=== PATIENT | male | born 1935 | race Caucasian/White ===

== ENCOUNTER 2017-05-11 21:42 | Emergency (ER) | payer OTHER, BC ==
[2017-05-11 21:59] VITALS: TEMP 37.3; O2SAT 95
[2017-05-11] MEDS ORDERED: SODIUM CHLORIDE 0.9% 1000ML 1,000 ML IV STA (22:49)
[2017-05-11 23:23] LABS: ALT/SGPT 29 U/L (12-78); BLOOD UREA NITROGEN 12 mg/dl (7-18); BUN/CREATININE RATIO 12.3 (10-20); CALCIUM 8.5 mg/dl (8.5-10.1); CARBON DIOXIDE 24 mmol/L (21-32); CHLORIDE 101 mmol/L (98-107); GLUCOSE 111 mg/dl (70-99); MAGNESIUM 2.1 mg/dl (1.8-2.4); POTASSIUM 3.5 mmol/L (3.5-5.1); SODIUM 136 mmol/L (136-145)
[2017-05-11 23:32] LABS: ALKALINE PHOSPHATASE 172 U/L (45-117); AST/SGOT 20 U/L (15-37); CKMB/CK RATIO 4.2 (0-3.0)
[2017-05-12 00:17] LABS: URINE APPEARANCE CLEAR (CLEAR); URINE BILIRUBIN NEG (NEG); URINE COLOR YELLOW; URINE NITRITE NEG (NEG); URINE PH 6.5 (4.5-7.5); UROBILINOGEN NEG (NEG)
[2017-05-12 00:20] LABS: MANUAL MICROSCOPIC REQUIRED? NO; REVIEW REQ? NO
[2017-05-12 01:16] LABS: BASO % 0.1 %; BASO ABS # 0.01 K/uL (0-0.2); COMPLETE YES; EOS % 0.2 %; HEMATOCRIT 32.4 % (42-52); IG% 0.7 %; LYMPH % 17.9 %; MEAN CELL VOLUME 87.3 fL (80-100); MEAN CORPUSCULAR HEMOGLOBIN 30.5 pg (25-34); MEAN CORPUSCULAR HGB CONC 34.9 g/dl (32-36); MEAN PLATELET VOLUME 9.9 fL (7.4-10.4); MONO % 7.5 %; NEUT % 73.6 %; PLATELET COUNT 210 K/uL (130-400); RED BLOOD COUNT 3.71 M/uL (4.7-6.1); WHITE BLOOD COUNT 8.96 K/uL (4.8-10.8)
[2017-05-12] MEDS ORDERED: LAMO100T16 PO (01:33)
[2017-05-12] MEDS ORDERED: LEVO25TA5 PO (01:33)
[2017-05-12] MEDS ORDERED: ASPCH81X PO (01:33)
[2017-05-12] MEDS ORDERED: DOCU100C31 PO (01:34)
[2017-05-12] MEDS ORDERED: SIMV10TA2 PO (01:34)
[2017-05-12] MEDS ORDERED: SERT25TA PO (01:36)
[2017-05-12] MEDS ORDERED: HEPA1INJ22 SQ (01:36)
[2017-05-12] MEDS ORDERED: SENN8.6T36 PO (01:36)
[2017-05-12] MEDS ORDERED: PHEN-310 PO (01:37)
[2017-05-12] MEDS ORDERED: ACET-1256 PO (01:39)
[2017-05-12] MEDS ORDERED: BISA10SU5 PR (01:39)
[2017-05-12] MEDS ORDERED: SODI1ENE21 PR (01:42)
[2017-05-12] MEDS ORDERED: MOML PO (01:42)
[2017-05-12] MEDS ORDERED: POLY335019 PO (01:42)
[2017-05-12] MEDS ORDERED: PHENYTOIN SODIUM ER 100 MG CAP PO STA (01:50)
--- NOTE | 2017-05-12 03:27 | EMERGENCY ROOM VISIT NOTE ---
History Report prepared by Gustavo: Dangelo Huston Under the Supervision of: Dr. John Sanchez M.D. First contact with patient: 22:09 Chief Complaint: SEIZURE Stated Complaint: SEIZURE / [facility] Nursing Triage Summary: Pt arrives by ALS from [facility] post seizure. Staff report period of unresponsiveness, jerking of upper body at 2054 lasting about 2 minutes. deny injury. pt has hx of seizure disorder. Is at [facility] for gait dysfunction and multiple falls. Pt has multiple skin tears to arms, protective sleeves in place. healing bruises also noted to right eye History of Present Illness The patient is a 81 year old male who presents to the Emergency Room with complaints of a sudden seizure that occurred at 2054. Per nursing, the patient is a resident at [facility] for his history of gait dysfunction and multiple falls. Nursing reports that the patient was unresponsive and jerking his upper body for two minutes. She states that following the seizure, the patient experienced five minutes of post ictal. The patient states that he currently does not feel well. The patient has a history of dementia and a seizure disorder. Per patient's report from 05/08 at [facility], he is followed by neurology and was being tapered off Dilantin to be put on 200 mg of Lamictal before his hospital visit. He states this PCP is Dr. Valenzuela of [place]. The patient denies any abdominal pain, headaches, chest pain, lower extremity pain, urinary symptoms, bowel problems, neck pain, and back pain. The HPI is somewhat limited due to the patient's altered mental status. Source of History: patient, nursing staff Onset: 2054 Position: other (global) Quality: other (unresponsive jerking body) Timing: other (sudden) Review of Systems As above but the ROS is limited due to the patient's dementia. Past Medical & Surgical Medical Problems: (1) Dementia (2) Seizure disorder Family History Patient reports no known family medical history. Social History Smoking Status: Unknown if Ever Smoked Housing Status: other ([facility]) Occupation Status: retired Current/Historical Medications Scheduled Aspirin (Aspirin Chewable), 81 MG PO DAILY Heparin Sodium (Porcine) (Heparin Sodium), 5,000 UNIT SQ Q12 Lamotrigine (Lamictal), 200 MG PO DAILY Levothyroxine Sodium (Levothyroxine Sodium), 25 MCG PO QAM Phenytoin Sodium Extended (Dilantin), 30 MG PO TID Sennosides-Docusate Sodium (Docusate Sodium/Senna), 1 TAB PO WITH LUNCH Sertraline (Zoloft), 25 MG PO DAILY Simvastatin (Zocor), 10 MG PO QPM Scheduled PRN Acetaminophen (Tylenol), 500 MG PO Q4 PRN for Pain Bisacodyl (Bisacodyl), 10 MG MD DAILY PRN for Constipation Docusate Sodium (Docusate Sodium), 100 MG PO BID PRN for Constipation Magnesium Hydroxide (Milk Of Magnesia), 30 ML PO DAILY PRN for Constipation Polyethylene Glycol 3350 (Miralax), 17 GM PO DAILY PRN for Constipation Sodium Phosphates (Enema), 1 DOSE MD DAILY PRN for Constipation Allergies Coded Allergies: Ciprofloxacin (Verified Allergy, Unknown, UNKNOWN, 05/12/17) Physical Exam Vital Signs Date Time Temp Pulse Resp B/P (MAP) Pulse Ox O2 Delivery O2 Flow Rate FiO2 05/12/17 02:34 87 20 126/73 94 Room Air 05/12/17 00:05 93 18 163/100 96 Room Air 05/11/17 23:26 97 20 98 Room Air 05/11/17 22:53 98 20 153/90 97 Room Air 05/11/17 21:59 37.3 105 22 152/97 94 Room Air 05/11/17 21:59 95 Room Air 05/11/17 21:56 108 Physical Exam GENERAL: Awake, alert, well-appearing, in no distress HENT: Normocephalic, atraumatic. Oropharynx unremarkable. EYES: Normal conjunctiva. Sclera non-icteric. NECK: Supple. No nuchal rigidity. FROM. No JVD. RESPIRATORY: Clear to auscultation. CARDIAC: Borderline tachycardic, normal rhythm. Extremities warm and well perfused. Pulses equal. ABDOMEN: Soft, non-distended. No tenderness to palpation. No rebound or guarding. No masses. RECTAL: Deferred. MUSCULOSKELETAL: Chest examination reveals no tenderness. The back is symmetrical on inspection without obvious abnormality. There is no CVA tenderness to palpation. No joint edema. LOWER EXTREMITIES: Calves are equal size bilaterally and non-tender. No edema. No discoloration. NEURO: Mildly confused and disoriented. No sensory or motor deficits noted. SKIN: No rash or jaundice noted. Medical Decision & Procedures ER Provider Diagnostic Interpretation: Radiology results as stated below per my review and radiologist interpretation: CT HEAD: No ICH, mass effect or edema. No evidence of acute cortical stroke. Periventricular small vessel ischemic change. Visualized sinuses and mastoid air cells are clear. Radiologist: Davis Fletcher M.D. Chest x-ray. Findings: A chest x-ray was performed and revealed no pneumothorax, effusion, infiltrate, pulmonary edema, free air under the diaphragm, or wide mediastinum. Laboratory Results 05/12/17 01:08 Red Blood Count 3.71, Mean Corpuscular Volume 87.3, Mean Corpuscular Hemoglobin 30.5, Mean Corpuscular Hemoglobin Concent 34.9, Mean Platelet Volume 9.9, Neutrophils (%) (Auto) 73.6, Lymphocytes (%) (Auto) 17.9, Monocytes (%) (Auto) 7.5, Eosinophils (%) (Auto) 0.2, Basophils (%) (Auto) 0.1, Neutrophils # (Auto) 6.60, Lymphocytes # (Auto) 1.60, Monocytes # (Auto) 0.67, Eosinophils # (Auto) 0.02, Basophils # (Auto) 0.01 05/11/17 21:55 Test 05/11/17 21:55 05/11/17 23:00 05/12/17 01:08 Anion Gap 11.0 mmol/L (3-11) Estimated GFR () 82.0 Estimated GFR (Non- 70.8 BUN/Creatinine Ratio 12.3 (10-20) Calcium Level 8.5 mg/dl (8.5-10.1) Magnesium Level 2.1 mg/dl (1.8-2.4) Total Bilirubin 0.2 mg/dl (0.2-1) Direct Bilirubin < 0.1 mg/dl (0-0.2) Aspartate Amino Transf (AST/SGOT) 20 U/L (15-37) Alanine Aminotransferase (ALT/SGPT) 29 U/L (12-78) Alkaline Phosphatase 172 U/L (45-117) Total Creatine Kinase 98 U/L (39-308) Creatine Kinase MB 4.1 ng/ml (0.5-3.6) Creatine Kinase MB Ratio 4.2 (0-3.0) Troponin I < 0.015 ng/ml (0-0.045) Total Protein 6.7 gm/dl (6.4-8.2) Albumin 3.4 gm/dl (3.4-5.0) Lipase 404 U/L (73-393) Thyroid Stimulating Hormone (TSH) 4.880 uIu/ml (0.300-4.500) Phenytoin (Dilantin) Level 4.0 mcg/mL (10-20) Urine Color YELLOW Urine Appearance CLEAR (CLEAR) Urine pH 6.5 (4.5-7.5) Urine Specific Filley 1.010 (1.000-1.030) Urine Protein NEG (NEG) Urine Glucose (UA) NEG (NEG) Urine Ketones NEG (NEG) Urine Occult Blood NEG (NEG) Urine Nitrite NEG (NEG) Urine Bilirubin NEG (NEG) Urine Urobilinogen NEG (NEG) Urine Leukocyte Esterase NEG (NEG) White Blood Count 8.96 K/uL (4.8-10.8) Red Blood Count 3.71 M/uL (4.7-6.1) Hemoglobin 11.3 g/dL (14.0-18.0) Hematocrit 32.4 % (42-52) Mean Corpuscular Volume 87.3 fL (80-100) Mean Corpuscular Hemoglobin 30.5 pg (25-34) Mean Corpuscular Hemoglobin Concent 34.9 g/dl (32-36) Platelet Count 210 K/uL (130-400) Mean Platelet Volume 9.9 fL (7.4-10.4) Neutrophils (%) (Auto) 73.6 % Lymphocytes (%) (Auto) 17.9 % Monocytes (%) (Auto) 7.5 % Eosinophils (%) (Auto) 0.2 % Basophils (%) (Auto) 0.1 % Neutrophils # (Auto) 6.60 K/uL (1.4-6.5) Lymphocytes # (Auto) 1.60 K/uL (1.2-3.4) Monocytes # (Auto) 0.67 K/uL (0.11-0.59) Eosinophils # (Auto) 0.02 K/uL (0-0.5) Basophils # (Auto) 0.01 K/uL (0-0.2) RDW Standard Deviation 41.4 fL (36.4-46.3) RDW Coefficient of Variation 12.8 % (11.5-14.5) Immature Granulocyte % (Auto) 0.7 % Immature Granulocyte # (Auto) 0.06 K/uL (0.00-0.02) Laboratory results reviewed by me Medications Administered Medications (Trade) Dose Ordered Sig/Renzo Route Start Time Stop Time Status Last Admin Dose Admin Sodium Chloride 1,000 ml @ 125 mls/hr Q8H STAT IV 05/11/17 22:49 05/12/17 02:48 DC 05/11/17 22:49 125 MLS/HR Phenytoin Sodium (Dilantin Er Cap) 200 mg NOW STAT PO 05/12/17 01:50 05/12/17 01:51 DC 05/12/17 02:01 200 MG ECG Indication: altered mental status, other (seizure) Rate (beats per minute): 105 Rhythm: sinus tachycardia Findings: nonspecific-ST abn, PAC ED Course 2218: The patient was evaluated in room B12B. A complete history and physical exam was performed. 2249: Ordered Sodium Chloride 1000 ml @ 125 mls/hr IV. 2335: I reevaluated the patient and discussed the case with his family. His son confirmed the history that the patient was in [facility] for seizure episodes then went to [facility]. He confirms they were tapering Dilantin down and Lamictal up because they were concerned Dilantin was causing weakness and difficulty with his function. His son reports that the patient seems more confused than usual, but has experienced similar symptoms in the past after episodes. 0117: I reevaluated the patient and he is stable. I updated the family on his results. 0132: I discussed the patient's case with Dr. Barb Valencia, [facility] Neurology. She suggests restarting him on his previous Dilantin dosing and keep the Lamictal at his current level. She advises to have him follow up with his neurologist for a checkup and reevaluation of his medication change. 0150: Ordered Phenytoin Sodium 200 mg PO. 0147: I reevaluated the patient. Discussed results and discharge instructions: He and his family verbalized understanding and agreement. The patient is ready for discharge. Medical Decision Triage Nursing notes reviewed. The patient's presentation and history were concerning for a seizure-like episode. Etiologies such as seizure , vasovagal event, infection, hypoglycemia, electrolyte abnormalities, cardiac sources, intracerebral event, toxicologic, neurologic, as well as others were entertained. The patient was evaluated. He had an episode of shaking and then a. Of STATUS AFTERWARDS WHICH SEEMS TO BE MOST CONSISTENT WITH A SEIZURE AND POST ICTAL PERIOD. THE PATIENT WAS EVALUATED. BLOOD WORK WAS OBTAINED. HIS CBC AND CHEMISTRY PANEL WERE UNREMARKABLE. DILANTIN LEVEL WAS LOW AT 4. HIS CT AND CHEST X-RAY DID NOT REVEAL ANY ACUTE FINDINGS. THE PATIENT WAS REASSESSED AND WAS DOING WELL. His son notes these episodes started only after the dilantin taper and he was well controlled for years with 100mg QAM 200mg QPM of Dilantin. I consulted with neurology, Dr. Lozano. She felt is very reasonable to restart him on his prior Dilantin regimen. He should continue the Lamictil but follow-up with his primary neurologist for further direction. I discussed this plan with the patient's son and he was in agreement. It sounds to be most consistent with breakthrough seizure. The patient is doing well now the son states that he seems baseline and he will be discharged back to [facility]. He was given 200 mg of oral Dilantin. I gave my usual and customary discussion regarding this issue. By the evaluation outlined above other emergent etiologies such as those listed in the differential, as well as others, were deemed relatively unlikely. The patient was educated about the findings as listed above. All questions were answered and the patient was pleased with the treatment. Return instructions were outlined and the patient was discharged in stable condition. The patient was referred to [facility] for follow-up for a recheck of the current condition. Medication Reconcilliation Current Medication List: was personally reviewed by me Blood Pressure Screening Patient's blood pressure: Elevated blood pressure Referred to [facility]. Consults Time Called: 131 Consulting Physician: Dr. Barb Valencia, [facility] Neurology Returned Call: 131 I discussed the patient's case with Dr. Barb Valencia, [facility] Neurology. She suggests restarting him on his previous Dilantin dosing and keep the Lamictal at his current level. She advises to have him follow up with his neurologist for a checkup and reevaluation of his medication change. Impression Primary Impression: Seizure Scribe Attestation The scribe's documentation has been prepared under my direction and personally reviewed by me in its entirety. I confirm that the note above accurately reflects all work, treatment, procedures, and medical decision making performed by me. Departure Information Dispostion Home / Self-Care Forms HOME CARE DOCUMENTATION FORM, IMPORTANT VISIT INFORMATION Patient Instructions My [facility] Additional Instructions The patient had an unremarkable head CT. Chest x-ray did not reveal any acute findings. ECG showed mild tachycardia but no ischemia. His CBC showed a mild anemia. Chemistry panel was unremarkable. Dilantin level was 4. Urinalysis was negative. Consultation was made with neurology, Dr. Lozano, and recommendations were for reinitiation of his previous Dilantin dosing, continuation of the Lamictil, and consultation with his outpatient neurologist for further instruction regarding the Dilantin taper. The patient's son was present and felt comfortable with that plan. The patient was given 200 mg of oral Dilantin prior to discharge. Recommended dosing as previously prescribed was 100 mg in the morning and 200 mg in the evening of oral Dilantin. Continue other current medications. Return to the ER for recurrent seizure, headache, passing out, difficulty breathing, fevers, numbness, tingling, worsening of your condition, or as needed.
[2017-05-12 04:09] VITALS: BP 134/74; PULSE 82; O2SAT 96
--- NOTE | 2017-05-12 06:38 | DIAGNOSTIC IMAGING REPORT ---
HEAD WITHOUT CONTRAST (CT) CLINICAL HISTORY: 81 years-old Male with EVALUATE WEAKNESS. Acute weakness and seizure. TECHNIQUE: Multiple axial CT images of the head were obtained without contrast. A dose lowering technique was utilized adhering to the principles of ALARA. CT DOSE: 537.48 mGy.cm COMPARISON: None. FINDINGS: No acute intracranial hemorrhage, midline shift, mass, large territorial ischemia or abnormal extra-axial collection. There is moderate cerebral and cerebellar atrophy with ex vacuo ventriculomegaly. Scattered moderate degree of periventricular white matter low attenuation involves the cerebral hemispheres bilaterally compatible with chronic microvascular ischemic changes. The calvarium is intact. The paranasal sinuses, mastoid air cells, and middle ear cavities are clear. IMPRESSION: 1. No acute intracranial abnormality. 2. Moderate atrophy with chronic microvascular ischemic changes. The above report was generated using voice recognition software. It may contain grammatical, syntax or spelling errors. Electronically signed by: Roshan De Santiago M.D. 05/12/2017 6:37 AM Dictated Date/Time: 05/12/2017 6:35 AM
--- NOTE | 2017-05-12 06:40 | DIAGNOSTIC IMAGING REPORT ---
CHEST ONE VIEW PORTABLE HISTORY: 81 years-old Male acute weakness and seizure COMPARISON: None available TECHNIQUE: Portable upright AP view of the chest FINDINGS: Prior median sternotomy. There is atherosclerosis of the aorta. Cardiac silhouette is within normal limits. There is no pneumothorax, pleural effusion, focal airspace consolidation or overt pulmonary edema. There are several remote right-sided rib fractures noted. There is slight cortical step-off involving the posterior lateral aspect of the left 10th rib suspicious for acute nondisplaced fracture. IMPRESSION: 1. No acute cardiopulmonary process. 2. Probable acute nondisplaced fracture of the lateral left 10th rib without pneumothorax. The above report was generated using voice recognition software. It may contain grammatical, syntax or spelling errors. Electronically signed by: Roshan De Santiago M.D. 05/12/2017 6:39 AM Dictated Date/Time: 05/12/2017 6:37 AM
--- NOTE | 2017-05-14 17:23 | Pharmacy Progress Note ---
ED Pharmacist Culture FollowUp Date of Service: May 14, 2017. Patient discharged to [facility]. Called [facility] and spoke to Brittany regarding urine culture growing coag neg staph. Culture result was successfully faxed at the confirmed number of [phone]. Further follow up/action will occur via the providers at [facility].
== END 2017-05-12 04:11 | disposition home or self-care (01) ==
LOC: C.EDB 21:46
DX: G40.909 Epilepsy, unspecified, not intractable, without status epilepticus (principal); R00.0 Tachycardia, unspecified; F03.90 Unspecified dementia, unspecified severity, without behavioral disturbance, psychotic disturbance, mood disturbance, and anxiety; Z79.82 Long term (current) use of aspirin; Z79.899 Other long term (current) drug therapy; Z88.2 Allergy status to sulfonamides

== ENCOUNTER 2018-04-16 00:10 | Inpatient (IN) | payer OTHER, BC ==
[~2018-04-16] VITALS: Ht 170.2 cm; Wt 58.7 kg
[~2018-04-16 00:10] MED LIST: ACET-1256 PO; ASPCH81X PO; BISA10SU5 PR; DOCU100C31 PO; HEPA1INJ22 SQ; LAMO100T16 PO; LEVO25TA5 PO; MOML PO; PHEN-310 PO; POLY335019 PO; SENN8.6T36 PO; SERT25TA PO; SIMV10TA2 PO; SODI1ENE21 PR
[2018-04-16] MEDS ORDERED: ASPI81TA28 PO (00:58)
[2018-04-16] MEDS ORDERED: METO25TA56 PO (00:58)
[2018-04-16] MEDS ORDERED: SENN8.6T7 PO (00:58)
[2018-04-16] MEDS ORDERED: LEVO75TA PO (00:58)
[2018-04-16] MEDS ORDERED: QUET1TAB30 PO (00:58)
[2018-04-16] MEDS ORDERED: LAMO25TA PO (00:58)
[2018-04-16] MEDS ORDERED: ATOR10TA82 PO (00:58)
[2018-04-16] MEDS ORDERED: SODIENE PR (00:58)
[2018-04-16] MEDS ORDERED: MULT-506 PO (00:58)
[2018-04-16] MEDS ORDERED: LSN25 PO (00:58)
[2018-04-16] MEDS ORDERED: LAMO100T PO (00:58)
[2018-04-16] MEDS ORDERED: RISP0.258 PO (00:58)
[2018-04-16 01:00] LABS: BASO % 0.1 %; BASO ABS # 0.01 K/uL (0-0.2); EOS % 1.8 %; EOS ABS # 0.13 K/uL (0-0.5); HEMATOCRIT 33.5 % (42-52); HEMOGLOBIN 10.9 g/dL (14.0-18.0); IG# 0.02 K/uL (0.00-0.02); LYMPH % 20.4 %; MEAN CELL VOLUME 90.3 fL (80-100); MEAN CORPUSCULAR HEMOGLOBIN 29.4 pg (25-34); MEAN CORPUSCULAR HGB CONC 32.5 g/dl (32-36); MEAN PLATELET VOLUME 9.4 fL (7.4-10.4); MONO % 7.5 %; MONO ABS # 0.55 K/uL (0.11-0.59); NEUT % 69.9 %; NEUT ABS # 5.16 K/uL (1.4-6.5); PLATELET COUNT 264 K/uL (130-400); RED CELL DISTRIBUTION WIDTH CV 13.9 % (11.5-14.5); RED CELL DISTRIBUTION WIDTH SD 46.2 fL (36.4-46.3); WHITE BLOOD COUNT 7.37 K/uL (4.8-10.8)
--- NOTE | 2018-04-16 01:04 | EMERGENCY ROOM VISIT NOTE ---
History Report prepared by Gustavo: Ronda Ray Under the Supervision of: Dr. Maged May M.D. First contact with patient: 00:41 Chief Complaint: FALL Stated Complaint: FALL/LETHARGY History of Present Illness The patient is a 82 year old male who presents to the Emergency Room with complaints of an episode of falling that occurred just prior to arrival. The nurse reports that the patient was heard when he fell and was then brought to the ED. Per nurse, the patient developed a hematoma on his head from his fall and is lethargic. The patient reports that the back of his neck hurts. He denies any chest pain, trouble breathing, and abdominal pain. The HPI is limited secondary to patient's baseline thickened speech. Source of History: patient, transfer records, family, nursing staff History Limited By: other (thickened speech at baseline) Onset: just prior to arrival Position: head, other (generalized) Quality: other (fall) Timing: other (episode) Associated Symptoms: + neck pain, No chest pain, No abdominal pain Note: additional symptoms: hematoma, lethargy denies: trouble breathing Review of Systems See HPI for pertinent positives & negatives. A total of 10 systems reviewed and were otherwise negative. Past Medical & Surgical Medical Problems: (1) Altered mental status (2) Dementia (3) Seizure disorder Old medical records were reviewed. Nurse's notes were reviewed and I agree with. Family History Patient reports no known family medical history. Social History Smoking Status: Never Smoker Marital Status: Housing Status: other ([facility]) Occupation Status: retired Current/Historical Medications Scheduled Aspirin (Aspirin Ec), 81 MG PO QAM Atorvastatin (Lipitor), 10 MG PO HS Lamotrigine (Lamictal), 200 MG PO QAM Lamotrigine (Lamictal), 50 MG PO HS Lamotrigine (Lamictal), 200 MG PO HS Levothyroxine Sodium (Synthroid), 75 MCG PO QAM Lisinopril (Lisinopril), 2.5 MG PO QAM Metoprolol Tartrate (Lopressor) (Lopressor), 25 MG PO QAM Multivitamin (Multivitamin), 1 TAB PO QAM Quetiapine Fumarate (Seroquel), 25 MG PO HS Risperidone (Risperdal), 0.25 MG PO TID Sennosides-Docusate Sodium (Senokot S), 1 TAB PO QDL Sertraline (Zoloft), 25 MG PO QAM Scheduled PRN Acetaminophen (Tylenol), 500 MG PO Q4 PRN for Pain Bisacodyl (Bisacodyl), 10 MG [place] DAILY PRN for Constipation Docusate Sodium (Docusate Sodium), 100 MG PO BID PRN for Constipation Magnesium Hydroxide (Milk Of Magnesia), 30 ML PO DAILY PRN for Constipation Polyethylene Glycol 3350 (Miralax), 17 GM PO QDL PRN for Constipation Sodium Phosphate/Biphosphate (Fleet Enema), 1 EA [place] DAILY PRN for Constipation Allergies Coded Allergies: Ciprofloxacin (Verified Allergy, Unknown, UNKNOWN, 04/16/18) Physical Exam Vital Signs Date Time Temp Pulse Resp B/P (MAP) Pulse Ox O2 Delivery O2 Flow Rate FiO2 04/16/18 03:59 65 16 145/68 96 Room Air 04/16/18 02:24 58 20 158/71 95 Room Air 04/16/18 01:18 60 18 178/80 95 Room Air 04/16/18 01:13 64 04/16/18 00:16 36.5 65 18 151/69 96 Room Air Physical Exam General: Chronically ill-appearing older male in no acute distress, breathing comfortably on room air. Normal speech HEENT: Normal cephalic. Pupils are equal round and reactive to light. Extraocular movements are intact. Oropharynx is pink with moist mucous membranes. No swelling of the mouth lips or tongue. Bruises on head. Neck: Supple with a midline trachea. No meningeal signs or stiffness, no JVD or bruits. No Stridor. Chest: Clear to auscultation bilaterally. No wheezes or rhonchi. No increased work of breathing. Heart: regular rate and rhythm. Abdomen: Soft nontender, nondistended without rebound guarding or rigidity. Extremities: No cyanosis clubbing or edema. No calf tenderness or assymetry Spine/Back. Non tender to palpation. No CVA tenderness Skin: Good turgor without rashes. Neurologic exam: Cranial nerves two through 12 are intact. Motor and sensation are intact and symmetrical throughout. Speech is slightly thickened which is apparently baseline. Moves all 4 extremities symmetrically with command. Medical Decision & Procedures ER Provider Diagnostic Interpretation: Radiology results as stated below per my review and radiologist interpretation: CT Head No acute hemorrhage, hydrocephalus, or mass effect. Chronic microvascular ischemic changes with cerebral volume loss. Radiologist: Kenrick Montero MD. CT C SPINE: There is a 5 mm retrolisthesis of C1 on C2 with 4 mm superior displacement of the odontoid from the base. There is mild prevertebral soft tissue swelling. Findings are suspicious for unstable fracture. No osseous spinal canal stenosis. There is background of severe degenerative changes. Recommend MRI of the cervical spine to rule out ligamentous/cord injury. Radiologist: Kenrick Montero MD. CHEST X-RAY: Chest x-ray per my interpretation reveals no pneumothorax, failure , or infiltrate. Laboratory Results 04/16/18 00:35 Red Blood Count 3.71, Mean Corpuscular Volume 90.3, Mean Corpuscular Hemoglobin 29.4, Mean Corpuscular Hemoglobin Concent 32.5, Mean Platelet Volume 9.4, Neutrophils (%) (Auto) 69.9, Lymphocytes (%) (Auto) 20.4, Monocytes (%) (Auto) 7.5, Eosinophils (%) (Auto) 1.8, Basophils (%) (Auto) 0.1, Neutrophils # (Auto) 5.16, Lymphocytes # (Auto) 1.50, Monocytes # (Auto) 0.55, Eosinophils # (Auto) 0.13, Basophils # (Auto) 0.01 04/16/18 00:35 Test 04/16/18 00:35 04/16/18 01:06 04/16/18 03:27 White Blood Count 7.37 K/uL (4.8-10.8) Red Blood Count 3.71 M/uL (4.7-6.1) Hemoglobin 10.9 g/dL (14.0-18.0) Hematocrit 33.5 % (42-52) Mean Corpuscular Volume 90.3 fL (80-100) Mean Corpuscular Hemoglobin 29.4 pg (25-34) Mean Corpuscular Hemoglobin Concent 32.5 g/dl (32-36) Platelet Count 264 K/uL (130-400) Mean Platelet Volume 9.4 fL (7.4-10.4) Neutrophils (%) (Auto) 69.9 % Lymphocytes (%) (Auto) 20.4 % Monocytes (%) (Auto) 7.5 % Eosinophils (%) (Auto) 1.8 % Basophils (%) (Auto) 0.1 % Neutrophils # (Auto) 5.16 K/uL (1.4-6.5) Lymphocytes # (Auto) 1.50 K/uL (1.2-3.4) Monocytes # (Auto) 0.55 K/uL (0.11-0.59) Eosinophils # (Auto) 0.13 K/uL (0-0.5) Basophils # (Auto) 0.01 K/uL (0-0.2) RDW Standard Deviation 46.2 fL (36.4-46.3) RDW Coefficient of Variation 13.9 % (11.5-14.5) Immature Granulocyte % (Auto) 0.3 % Immature Granulocyte # (Auto) 0.02 K/uL (0.00-0.02) Prothrombin Time 10.0 SECONDS (9.0-12.0) Prothromb Time International Ratio 1.0 (0.9-1.1) Activated Partial Thromboplast Time 26.8 SECONDS (21.0-31.0) Partial Thromboplastin Ratio 1.0 Anion Gap 7.0 mmol/L (3-11) Est Creatinine Clear Calc Drug Dose 67.6 ml/min Estimated GFR () 98.6 Estimated GFR (Non- 85.1 BUN/Creatinine Ratio 23.3 (10-20) Estimated Average Glucose 114 mg/dl Hemoglobin A1c 5.6 % (4.5-5.6) Calcium Level 8.8 mg/dl (8.5-10.1) Total Bilirubin 0.6 mg/dl (0.2-1) Direct Bilirubin 0.3 mg/dl (0-0.2) Aspartate Amino Transf (AST/SGOT) 66 U/L (15-37) Alanine Aminotransferase (ALT/SGPT) 61 U/L (12-78) Alkaline Phosphatase 114 U/L (45-117) Total Protein 7.1 gm/dl (6.4-8.2) Albumin 3.4 gm/dl (3.4-5.0) Lipase 112 U/L (73-393) Phenytoin (Dilantin) Level < 0.4 mcg/mL (10-20) Bedside Troponin I 0.060 ng/ml (0-0.045) Magnesium Level 2.3 mg/dl (1.8-2.4) Total Creatine Kinase 852 U/L (39-308) Thyroid Stimulating Hormone (TSH) 0.733 uIu/ml (0.300-4.500) Laboratory studies as stated above per my review. Medications Administered Medications (Trade) Dose Ordered Sig/Renzo Route Start Time Stop Time Status Last Admin Dose Admin Lisinopril (Zestril Tab) 2.5 mg ONE STAT PO 04/16/18 02:32 04/16/18 02:33 DC 04/16/18 02:32 2.5 MG ECG Per My Interpretation Indication: other (fall) Rate (beats per minute): 61 Rhythm: normal sinus Findings: nonspecific-ST abn (nonspecific ST and T wave abnormalities), other ( poor baseline) Comparison ECG Date: Change: no significant change ED Course 0043: Past medical records reviewed. The patient was evaluated in room B6, and a complete history and physical examination were performed. 0102: I reevaluated the patient. The patient's son has arrived and the patient just came back from his CT scan. I have updated the patient's son on the patient 's results. 0212: I placed the patient in a neck collar. 0213: Discussed the patient's case with Dr. Qunitanilla - [facility]. Dr. Quintanilla agreed to admit the patient. Upon reevaluation, the patient is resting. I discussed the results and treatment plan with the patient. The patient verbalized agreement of the treatment plan. The patient is being admitted and will be evaluated for further management. Medical Decision Differentials include, but are not limited to; seizure, head injury, syncope, electrolyte or metabolic abnormality, infection, trauma. This patient comes in after falling. He has a history of frequent falls as well as a history of CVA and seizures. He has multiple bruises mostly around his head. He is in [facility] and apparently the reason is there is because a similar episodes in [place]. He is by report at his normal neurologic baseline. IV access was established EKG was obtained which does not suggest any acute ischemic changes or ectopy. CAT scan of his head was done which was unremarkable. CT of the cervical spine shows a possible fracture of the odontoid with potential ligamentous injury of C1 on C2. The patient has a previous odontoid fracture apparently and this could be old he was placed in a [place] J collar. EKG was unremarkable however troponin is mildly elevated. I talked to the son at length. Although it sounds like he fell, it is possibly could have had a seizure. They may have changed his seizure medications as well. I do think he needs to be admitted/observe for further inpatient treatment and evaluation and have asked Dr. Hutchins to see him in the ER for these measures. Head Trauma GCS Score: 14 Medication Reconcilliation Current Medication List: was personally reviewed by me Blood Pressure Screening Patient's blood pressure: Elevated blood pressure (will be monitored by hospitalist) Consults Time Called: 211 Consulting Physician: Dr. Dwight Nunez Hospitalist Returned Call: [phone] Discussed the patient's case. Dr. Quintanilla agreed to admit the patient. The patient will be evaluated for further management. Impression Primary Impression: Seizure Additional Impressions: Cervical spine fracture Elevated troponin Scribe Attestation The scribe's documentation has been prepared under my direction and personally reviewed by me in its entirety. I confirm that the note above accurately reflects all work, treatment, procedures, and medical decision making performed by me. Departure Information Dispostion Being Evaluated By Hospitalist [facility] Instructions My [facility] Problem Qualifiers
[2018-04-16 01:10] LABS: ALBUMIN 3.4 gm/dl (3.4-5.0); CALCIUM 8.8 mg/dl (8.5-10.1); CREATININE 0.77 mg/dl (0.60-1.40); POTASSIUM 3.5 mmol/L (3.5-5.1); TOTAL PROTEIN 7.1 gm/dl (6.4-8.2)
[2018-04-16 01:13] LABS: PTT PATIENT 26.8 SECONDS (21.0-31.0)
[2018-04-16] MEDS ORDERED: LISINOPRIL 5 MG TAB PO STA (02:32)
[2018-04-16] MEDS ORDERED: RISPERIDONE 0.5 MG TAB PO ONE (04:45)
[2018-04-16] MEDS ORDERED: DOCUSATE SODIUM 100 MG CAP PO PRN (04:45)
[2018-04-16] MEDS ORDERED: OXYCODONE/ACETAMINOPHEN 5-325 TAB PO PRN (04:45)
[2018-04-16] MEDS ORDERED: LORAZEPAM INJ 1 MG in SYRINGE 0.5 ML IV PRN (04:45)
[2018-04-16] MEDS ORDERED: PROCHLORPERAZINE INJ 5 MG in SYRINGE 4 ML IV PRN (04:45)
[2018-04-16] MEDS ORDERED: NITROGLYCERIN 0.4 MG SL PER TAB CHARGE SL PRN (04:45)
[2018-04-16] MEDS ORDERED: POLYETHYLENE (MIRALAX) 17 GM PACK PO PRN (04:45)
[2018-04-16] MEDS ORDERED: OLANZAPINE 10 MG/2.1 ML SDV IM STA ×2 (05:14→05:35)
[2018-04-16] MEDS ORDERED: IV FLUIDS COMPLETED PRN (05:15)
[2018-04-16 06:00] VITALS: BP 90/54; PULSE 75; TEMP 36.5; O2SAT 97; Ht 170.2 cm; Wt 58.7 kg
[2018-04-16 06:01] LABS: HEMOGLOBIN A1C 5.6 % (4.5-5.6)
[2018-04-16] MEDS: LEVOTHYROXINE 75 MCG TAB PO SCH (06:30)
--- NOTE | 2018-04-16 06:44 | DIAGNOSTIC IMAGING REPORT ---
CT OF THE CERVICAL SPINE CLINICAL HISTORY: Neck pain status post trauma COMPARISON STUDY: No previous studies for comparison. CT DOSE: 972.28 mGy.cm TECHNIQUE: CT scan of the cervical spine was performed from the skull base to the thoracic inlet. Images are reviewed in the axial, sagittal, and coronal planes. IV contrast was not administered for this examination. A dose lowering technique was utilized adhering to the principles of ALARA. FINDINGS: The visualized portions of the lung apices reveal no evidence of pneumothorax. There is a transverse fracture through the odontoid. Fracture fragment is posterior displaced x 7.5 mm. The fracture margins appear slightly sclerotic, therefore this fracture is age indeterminate. There is mild prevertebral soft tissue swelling. There are advanced multilevel degenerative changes. IMPRESSION: Age-indeterminate odontoid fracture with 7.5 mm of posterior displacement of the superior fragment Electronically signed by: Ruben Rawls M.D. 04/16/2018 6:43 AM Dictated Date/Time: 04/16/2018 6:37 AM
--- NOTE | 2018-04-16 06:50 | DIAGNOSTIC IMAGING REPORT ---
CHEST ONE VIEW PORTABLE CLINICAL HISTORY: Atypical chest pain. Trauma. COMPARISON STUDY: May 11, 2017 FINDINGS: The heart is mildly enlarged. There are postsurgical changes of a midline sternotomy. There is mild elevation of the interstitium. The findings are consistent with mild pulmonary vascular congestion/fluid overload. There is no lobar consolidation. There are no large pleural effusions.[ IMPRESSION: Radiographic evidence of mild portal vascular congestion/fluid overload. Electronically signed by: Ruben Rawls M.D. 04/16/2018 6:49 AM Dictated Date/Time: 04/16/2018 6:48 AM
[2018-04-16] MEDS: ENOXAPARIN 30 MG/0.3 ML SYR SC SCH (07:00)
--- NOTE | 2018-04-16 07:06 | DIAGNOSTIC IMAGING REPORT ---
HEAD CT NONCONTRAST CT DOSE: HISTORY: eval for trauma TECHNIQUE: Multiaxial CT images of the head were performed without the use of intravenous contrast. Automated exposure control was utilized for this study. A dose lowering technique was utilized adhering to the principles of ALARA. Comparison: Head CT 05/03/2017. Findings: The paranasal sinuses and mastoid air cells are clear. The calvarium and skull base are intact. There is no mass, hematoma, midline shift, acute infarct. White matter hypodensity is nonspecific but suggestive of microvascular ischemic change. The ventricles and sulci demonstrate mild age-related involutional changes. Nasal bone deformities suggesting old fractures. Mild frontal scalp swelling. Impression: No acute intracranial abnormality. Nasal bone deformity suggesting old fractures. Mild frontal scalp swelling. Electronically signed by: Angelo Craft M.D. 04/16/2018 7:05 AM Dictated Date/Time: 04/16/2018 6:58 AM
[2018-04-16 07:30] VITALS: BP 119/54; PULSE 76; TEMP 36.8; O2SAT 93
[2018-04-16] MEDS: ASPIRIN 81 MG ECTAB PO SCH (08:39)
[2018-04-16] MEDS: RISPERIDONE 0.5 MG TAB PO SCH ×3 (08:40→20:48)
[2018-04-16] MEDS: METOPROLOL TARTRATE 25 MG TAB PO SCH ×2 (08:40→20:51)
[2018-04-16] MEDS: MULTIVITAMIN TAB PO SCH (08:40)
[2018-04-16] MEDS: SERTRALINE HCL 50 MG TAB PO SCH (08:40)
--- NOTE | 2018-04-16 09:00 | HISTORY & PHYSICAL EXAMINATION ---
DATE OF ADMISSION: 04/16/2018 PRIMARY CARE DOCTOR: Dr. Lee. CHIEF COMPLAINT: Fall as per records. HISTORY OF PRESENT ILLNESS: History obtained from patient, son, rehab hospital staff, and records. Limited history from patient secondary to dementia hearing impairment. Medical history significant for dementia, chronic systolic heart failure secondary to ischemic cardiomyopathy, EF of 30% from a 2D echo from 2011, CAD status post CABG, seizure disorder, prostate cancer, sleep apnea on CPAP, stroke as per records, chronic odontoid fracture as per records, past tobacco/ETOH abuse as per records, chronic anemia (baseline hemoglobin 10- 11). prostate cancer as per records. Recent ER visit last year for a seizure episode, jerking upper body while at [facility]. Patient discharged back to [facility]. The last 2 weeks, the patient has had recurrent falls at home as per son. Unwitnessed events. Patient would be noted to have bruising on the extremities. Patient unable to give description of events. Usual incontinence as per son. As per records, two nights ago, noted to have vomiting and altered mental status. Neighbor heard patient called for help yesterday morning. Son found patient sitting in an abnormal position like had fallen, usual incontinence. Patient unable to give history of events. The patient evaluated at [facility] Emergency Room. Unremarkable findings except for skin tear on the right forearm. Patient discharged to [facility]. At [facility] rehabilitation yesterday, the patient noted to have fallen off the bed, noted to be disoriented as per rehab nurse. Usual urinary incontinence. Patient brought to Emergency Room. Patient noted to be glassy-eyed as per son as if he just had seizures. As per the patient's son, Lam[facility] dose [facility] less than prescribed. As per son, had recent followup with [place] neurologist about 2 weeks ago - everything was well. Told to continue same regimen. MEDICAL HISTORY: As above. A 2D echo in 2011 showed EF of 30%, severe hypokinesis, mid to distal inferior septum, apex, mid to distal lateral wall, mid to distal inferior wall, mid to distal anterior wall, mid to distal inferior septum, mid to distal posterior wall, grade 1 diastolic dysfunction, mild MR, TR. Hx of chronic odontoid fracture since 2011. As per last [facility] spinal surgery follow-up as of 2011, no surgery indicated for odontoid fracture with a nonunion due to patient's overall lack of symptoms, total absence of neck pain, normal ambulation. CT cervical spine outpatient 2017 showed chronic ununited type 2 odontoid fracture with stable ventral apex angulation and minimal retrolisthesis of the distal odontoid fragment. No acute cervical spine fractures, carotid artery vascular disease SURGICAL HISTORY: CABG, urologic procedures. HOME MEDICATIONS: Include multivitamins, MiraLax, Seroquel, Risperdal, Senokot, Zoloft, Fleet enema, aspirin, Lipitor, Tylenol, bisacodyl, docusate sodium. lisinopril milk of mag, Lopressor. Lamictal 3 times a day - Lamictal 250 mg at bedtime, Lamictal 200 mg PO BID ( breakfast, dinner) ALLERGIES: CIPRO. FAMILY HISTORY: There is a family history of heart disease, lung cancer. PERSONAL AND SOCIAL HISTORY: Past tobacco and alcohol abuse per records. Lives alone. REVIEW OF SYSTEMS: Could not be reliably obtained. PHYSICAL EXAMINATION: VITAL SIGNS: Blood pressure was noted to be 178/80 later 120/70, pulse rate 87, RR 22, T 37 sats 94 on room air. GENERAL: Noted to be uncomfortable, demented. SKIN: Normal color, warm. HEENT: Pale palpebral conjunctivae. No ptosis. Dry mucosa. NECK: Cervical collar noted. CHEST: Decreased effort. No tenderness. HEART: RRR, Systolic murmur. ABDOMEN: Soft, nontender. EXTREMITIES: No LE edema. No gross deformities for bruising on extremities. NEUROLOGIC: Demented. Gait and stance not assessed, no facial asymmetry, hard of hearing, speech somewhat unintelligible. LABS: Hemoglobin 10.9, platelets 264. Sodium noted to be 136, potassium 3.5, chloride 104, CO2 of 27, BUN 18, creatinine 0.7, glucose 114. Troponin 0.06. EKG as per my interpretation, rate 60, NSR, artifact, no ischemia. CT head initial read, no acute pathology, microvascular disease. CT neck, initial read, 5 mm retrolisthesis C1 on C2, mild prevertebral soft tissue swelling suspicious for subluxation. Subtle linear lucency through the odontoid, coursing vessel versus fracture. No osseous canal spinal stenosis. Recommend MRI of cervical spine for ligamentous/cord injury. ASSESSMENT AND PLAN: 1. Recurrent falls Mostly unwitnessed hx chronic ambulatory dysfunction ? Unwitnessed syncopal event ddx : orthostasis, cardiac dysfunction, ro breakthrough seizures (incorrect Lamictal dose at rehab as per son) 2. Dementia. Increasing functional disability as per son 3. chronic systolic heart failure secondary to ischemic cardiomyopathy, EF of 30%. TTE 2011 4. CAD sp CABG 5. hx CVA as per records 6. Abnormal CT of the neck, possible unstable cervical fracture hx recurrent falls history of old ununited fracture, base of odontoid type 2 injury since 2011 not requiring intervention as per [facility] Spine surgery outpatient notes 7. Chronic anemia, hemoglobin at baseline. 8. hx prostate CA as per records 9. hyperglycemia rule out DM 10. past tobacco abuse. Observation PCU. Check orthostatic vitals. TTE : recurrent falls, possible syncope seizure precautions, Ativan as needed Check serum Lamictal levels Continue Lamictal home dosing. EEG, MRI of the brain RE poss breakthrough seizures as per family account. May need Neurology opinion pending workup results. Gentle IV hydration. Decrease home beta-isai dose given episodic bradycardia at the ER Continue cervical immobilization for now. Cervical MRI RE abnormal CT of the neck Orthopedic spine consult. RE abnormal CT neck, neck injury. Check hemoglobin A1c PT/OT eval. Social service RE discharge planning (Patient family has expressed interest in [place] [facility] placement for patient if found to be eligible.) DVT prophylaxis Lovenox subQ. DNR as per discussion with son/POA, Hector Frederic. He requests updates from providers thru [phone]. MARAD
[2018-04-16] MEDS: DOCUSATE SODIUM/SENNA 50/8.6MG TAB PO SCH (11:30)
--- NOTE | 2018-04-16 11:30 | Progress Note ---
Internal Med Progress Note Date of Service: Apr 16, 2018. Provider Documentation: SUBJECTIVE: Seen and examined at bedside Patient unable to provide any meaningful history Discussed with son in detail, who reports patient's mental status completely changed from 2 days ago No witnessed seizures or Falls but son believes he had a seizure and fell causing bruising. Patient is oriented to person and follows commands and is able to move all extremities Currently getting ECHO OBJECTIVE: Vital Signs-as noted below Physical Exam: General Appearance:Moderately built and nourished, no apparent distress Head: normocephalic, +small Right scalp swelling Eyes: normal inspection, EOMI, PERRL Neck: supple, Trachea midline, +Neck collar Respiratory/Chest: Decreased breath sounds, CTA Cardiovascular: S1, S2, + murmur Abdomen/GI:Soft, Non tender, Bowel sounds present Extremities/Musculoskelatal:normal inspection, no edema Neurologic/Psych:grossly no focal neurological deficits Skin: normal color, warm Lab data as noted below. ASSESSMENT & PLAN: Altered mental Status Insetting of Dementia at baseline and H/O seizures CT head; No acute intracranial abnormality. Nasal bone deformity suggesting old fractures. Mild frontal scalp swelling. CT Neck: Age-indeterminate odontoid fracture with 7.5 mm of posterior displacement of the superior fragment Patient son aware of patient to have prior neck fracture Patient's Son reports patient's mental status is not at his baseline and is unable to reconzie him which was not the case 2 days prior MRI head and Neck pending Neuro checks, Seizure/Fall precautions Neurology consulted for Input UA is pending Seizure Disorder Patient's Son reports that patient missed his Lamictal dose yesterday and the day prior as well Check Lamictal levels Continue Lamictal Ativan PRN Seizure precautions EEG, MRI head pending Neurology consulted Age-indeterminate odontoid fracture with 7.5 mm of posterior displacement of the superior fragment Known H/O neck fracture as per Son Continue Neck collar Orthopedics consulted H/O Recurrent Falls PT/OT eval Will need Rehab H/O CAD S/P CABG H/O ischemic cardiomyopathy Chronic systolic heart failure: EF: 30% No signs of decompensation ECHO pending Continue home meds Hypothyroidism Check TSH, Free T4 in AM Continue Levothyroxine DVT Px: Lovenox SQ Code Status: DNI/DNR: Confirmed with Patient's Son Disposition: To be determined Family: Patient's Son: Hector De La Garza requesting updates from providers [phone] Vital Signs: Date Time Temp Pulse Resp B/P (MAP) Pulse Ox O2 Delivery O2 Flow Rate FiO2 04/16/18 08:17 Room Air 04/16/18 07:30 36.8 76 18 119/54 (75) 93 Room Air 04/16/18 06:00 36.5 75 16 90/54 97 Room Air 04/16/18 06:00 75 16 90/54 (66) 97 Room Air 04/16/18 03:59 65 16 145/68 96 Room Air 04/16/18 02:24 58 20 158/71 95 Room Air 04/16/18 01:18 60 18 178/80 95 Room Air 04/16/18 01:13 64 04/16/18 00:16 36.5 65 18 151/69 96 Room Air Lab Results: Results Past 24 Hours Test 04/16/18 00:35 04/16/18 01:06 04/16/18 03:27 04/16/18 09:28 Range/Units White Blood Count 7.37 4.8-10.8 K/uL Red Blood Count 3.71 4.7-6.1 M/uL Hemoglobin 10.9 14.0-18.0 g/dL Hematocrit 33.5 42-52 % Mean Corpuscular Volume 90.3 80-100 fL Mean Corpuscular Hemoglobin 29.4 25-34 pg Mean Corpuscular Hemoglobin Concent 32.5 32-36 g/dl Platelet Count 264 130-400 K/uL Mean Platelet Volume 9.4 7.4-10.4 fL Neutrophils (%) (Auto) 69.9 % Lymphocytes (%) (Auto) 20.4 % Monocytes (%) (Auto) 7.5 % Eosinophils (%) (Auto) 1.8 % Basophils (%) (Auto) 0.1 % Neutrophils # (Auto) 5.16 1.4-6.5 K/uL Lymphocytes # (Auto) 1.50 1.2-3.4 K/uL Monocytes # (Auto) 0.55 0.11-0.59 K/uL Eosinophils # (Auto) 0.13 0-0.5 K/uL Basophils # (Auto) 0.01 0-0.2 K/uL RDW Standard Deviation 46.2 36.4-46.3 fL RDW Coefficient of Variation 13.9 11.5-14.5 % Immature Granulocyte % (Auto) 0.3 % Immature Granulocyte # (Auto) 0.02 0.00-0.02 K/uL Prothrombin Time 10.0 9.0-12.0 SECONDS Prothromb Time International Ratio 1.0 0.9-1.1 Activated Partial Thromboplast Time 26.8 21.0-31.0 SECONDS Partial Thromboplastin Ratio 1.0 Sodium Level 138 136-145 mmol/L Potassium Level 3.5 3.5-5.1 mmol/L Chloride Level 104 98-107 mmol/L Carbon Dioxide Level 27 21-32 mmol/L Anion Gap 7.0 3-11 mmol/L Blood Urea Nitrogen 18 7-18 mg/dl Creatinine 0.77 0.60-1.40 mg/dl Est Creatinine Clear Calc Drug Dose 67.6 ml/min Estimated GFR () 98.6 Estimated GFR (Non- 85.1 BUN/Creatinine Ratio 23.3 10-20 Random Glucose 114 70-99 mg/dl Estimated Average Glucose 114 mg/dl Hemoglobin A1c 5.6 4.5-5.6 % Calcium Level 8.8 8.5-10.1 mg/dl Total Bilirubin 0.6 0.2-1 mg/dl Direct Bilirubin 0.3 0-0.2 mg/dl Aspartate Amino Transf (AST/SGOT) 66 15-37 U/L Alanine Aminotransferase (ALT/SGPT) 61 12-78 U/L Alkaline Phosphatase 114 45-117 U/L Total Protein 7.1 6.4-8.2 gm/dl Albumin 3.4 3.4-5.0 gm/dl Lipase 112 73-393 U/L Phenytoin (Dilantin) Level < 0.4 10-20 mcg/mL Bedside Troponin I 0.060 0-0.045 ng/ml Magnesium Level 2.3 1.8-2.4 mg/dl Total Creatine Kinase 852 39-308 U/L Troponin I 0.046 0.040 0-0.045 ng/ml Thyroid Stimulating Hormone (TSH) 0.733 0.300-4.500 uIu/ml Test 04/16/18 11:19 Range/Units
--- NOTE | 2018-04-16 11:55 | EEG Procedure Note ---
EEG Procedure Note Date of Service Apr 16, 2018. Start / End Times Start Time: 6:49 a.m. End Time: 7:[address] Quintanilla History Dementia, recurrent falls, evaluate for seizures histotechnologist notes indicate the patient is very uncooperative, currently in 4 point restraints, yelling out continuously, exhibiting constant movement. Home Medication List Scheduled Aspirin (Aspirin Ec), 81 MG PO QAM Atorvastatin (Lipitor), 10 MG PO HS Lamotrigine (Lamictal), 200 MG PO QAM Lamotrigine (Lamictal), 50 MG PO HS Lamotrigine (Lamictal), 200 MG PO HS Levothyroxine Sodium (Synthroid), 75 MCG PO QAM Lisinopril (Lisinopril), 2.5 MG PO QAM Metoprolol Tartrate (Lopressor) (Lopressor), 25 MG PO QAM Multivitamin (Multivitamin), 1 TAB PO QAM Quetiapine Fumarate (Seroquel), 25 MG PO HS Risperidone (Risperdal), 0.25 MG PO TID Sennosides-Docusate Sodium (Senokot S), 1 TAB PO QDL Sertraline (Zoloft), 25 MG PO QAM Scheduled PRN Acetaminophen (Tylenol), 500 MG PO Q4 PRN for Pain Bisacodyl (Bisacodyl), 10 MG VA DAILY PRN for Constipation Docusate Sodium (Docusate Sodium), 100 MG PO BID PRN for Constipation Magnesium Hydroxide (Milk Of Magnesia), 30 ML PO DAILY PRN for Constipation Polyethylene Glycol 3350 (Miralax), 17 GM PO QDL PRN for Constipation Sodium Phosphate/Biphosphate (Fleet Enema), 1 EA VA DAILY PRN for Constipation Inpatient Medication List Current Inpatient Medications Medications (Trade) Dose Ordered Sig/Renzo Route Start Time Stop Time Status Last Admin Dose Admin Lisinopril (Zestril Tab) 2.5 mg QAM PO 04/17/18 09:00 05/17/18 08:59 Lamotrigine (Lamictal Tab) 250 mg HS PO 04/16/18 21:00 05/16/18 20:59 Enoxaparin Sodium (Lovenox Inj) 30 mg Q24H SC 04/16/18 07:00 05/16/18 06:59 Acetaminophen (Tylenol Tab) 650 mg Q4H PRN PO 04/16/18 04:45 05/16/18 04:44 Nitroglycerin (Nitrostat Tab) 0.4 mg UD PRN SL 04/16/18 04:45 05/16/18 04:44 Lorazepam 1 mg/ Syringe 1 ml @ 0.5 mls/min Q5M PRN IV 04/16/18 04:45 05/16/18 04:44 Aspirin (Ecotrin Tab) 81 mg QAM PO 04/16/18 09:00 05/16/18 08:59 Atorvastatin Calcium (Lipitor Tab) 10 mg HS PO 04/16/18 21:00 05/16/18 20:59 Docusate Sodium (coLACE CAP) 100 mg BID PRN PO 04/16/18 04:45 05/16/18 04:44 Lamotrigine (Lamictal Tab) 200 mg BID17 PO 04/16/18 09:00 05/16/18 08:59 Metoprolol Tartrate (Lopressor Tab) 12.5 mg BID PO 04/16/18 09:00 05/16/18 08:59 Multivitamins (Multivitamin Tab) 1 tab QAM PO 04/16/18 09:00 05/16/18 08:59 Quetiapine Fumarate (seroQUEL TAB) 25 mg HS PO 04/16/18 21:00 05/16/18 20:59 Risperidone (Risperdal Tab) 0.25 mg TID PO 04/16/18 09:00 05/16/18 08:59 Senna/Docusate Sodium (Senokot S Tab) 1 tab QDL PO 04/16/18 11:30 05/16/18 11:29 Sertraline HCl (Zoloft Tab) 25 mg QAM PO 04/16/18 09:00 05/16/18 08:59 Polyethylene (Miralax Powder Packet) 17 gm QDL PRN PO 04/16/18 04:45 05/16/18 04:44 Oxycodone/ Acetaminophen (Percocet 5-325mg Tab) 1 tab Q6H PRN PO 04/16/18 04:45 04/30/18 04:44 Prochlorperazine Edisylate 5 mg/ Syringe 5 ml @ 5 mls/min Q6H PRN IV 04/16/18 04:45 05/16/18 04:44 Morphine Sulfate (MoRPHine SULFATE INJ) 2 mg Q4H PRN IV 04/16/18 04:45 04/30/18 04:44 Miscellaneous (Iv Fluids Completed) 1 ea PRN PRN N/A 04/16/18 05:15 04/16/19 05:14 Levothyroxine Sodium (Synthroid Tab) 75 mcg DAILYBB PO 04/16/18 06:30 05/16/18 06:29 Description This is a 21 electrode EEG with a single channel dedicated to limited EKG. The electrodes were placed in accordance with the International 10-20 system. This is a technically very limited EEG due to excessive patient movement throughout the study. There is a posterior dominant rhythm of 9-10 hertz which is symmetrically distributed. Photic stimulation was not performed. There is continuous, excessive movement artifact throughout the study which limits its potential diagnostic yield. I did not observe any continuous focal slowing or obvious epileptiform abnormalities. Interpretation This is a technically limited EEG due to excessive, persistent, patient movement. A normal appearing background alpha rhythm was observed, however. Clinical Correlation Technically limited EEG with a normal appearing background alpha rhythm and excessive movement artifact throughout the entire study. If there is a strong suspicion for seizures in this patient a repeat EEG may need to be considered when the patient is more relaxed and cooperative.
[2018-04-16 12:06] VITALS: BP 141/54; PULSE 71; TEMP 36.8; O2SAT 96
[2018-04-16] MEDS ORDERED: HALOPERIDOL LACTATE 5 MG/ML 1 ML VIAL IV PRN (13:30)
[2018-04-16] MEDS ORDERED: HALOPERIDOL LACTATE 5 MG/ML 1 ML VIAL ONE (13:33)
[2018-04-16] MEDS ORDERED: HALOPERIDOL LACTATE 5 MG/ML 1 ML VIAL IM PRN (13:45)
--- NOTE | 2018-04-16 14:04 | Neurology Consultation ---
Neurology Consultation Date of Consultation: Apr 16, 2018. Attending Physician: Mike Rockwell MD Primary Care Physician: No Doctor, Assigned Reason for Consultation: AMS History of Present Illness Source: patient Levi is a 82 year old male who has a H dementia, seizure disorder, stroke, delirium, LV mural thrombus, odontoid fracture in 2011 non surgical, [place]. He present to [facility] on 04/14/2018 for episode of emesis and confusion. He had 2 falls over the past week, and 2 episodes of vomiting. His son found him in a chair incontinent of urine which is a chronic issue and took him to the ED. He was found stable and discharged to [facility] for inpatient rehab. He was found on the floor at and was sent to the ED for evaluation. His son feels it was likely a seizure. His lamictal level at [facility] was 18.9. He lives independently. He is currently restrained and has a [place] J collar in place due to the fall, he states no pain but does not know where he is currently. Past Medical/Surgical History Medical Problems: (1) Cervical spine fracture Status: Acute (2) Elevated troponin Status: Acute (3) Seizure Status: Acute (4) Seizure Status: Acute Social History Marital Status: Housing Status: other ([facility]) Occupation Status: retired Allergies Coded Allergies: Ciprofloxacin (Verified Allergy, Unknown, UNKNOWN, 04/16/18) Current Inpatient Medications Current Inpatient Medications Medications (Trade) Dose Ordered Sig/Renzo Route Start Time Stop Time Status Last Admin Dose Admin Lisinopril (Zestril Tab) 2.5 mg QAM PO 04/17/18 09:00 05/17/18 08:59 Lamotrigine (Lamictal Tab) 250 mg HS PO 04/16/18 21:00 05/16/18 20:59 Enoxaparin Sodium (Lovenox Inj) 30 mg Q24H SC 04/16/18 07:00 05/16/18 06:59 Acetaminophen (Tylenol Tab) 650 mg Q4H PRN PO 04/16/18 04:45 05/16/18 04:44 Nitroglycerin (Nitrostat Tab) 0.4 mg UD PRN SL 04/16/18 04:45 05/16/18 04:44 Lorazepam 1 mg/ Syringe 1 ml @ 0.5 mls/min Q5M PRN IV 04/16/18 04:45 05/16/18 04:44 Aspirin (Ecotrin Tab) 81 mg QAM PO 04/16/18 09:00 05/16/18 08:59 Atorvastatin Calcium (Lipitor Tab) 10 mg HS PO 04/16/18 21:00 05/16/18 20:59 Docusate Sodium (coLACE CAP) 100 mg BID PRN PO 04/16/18 04:45 05/16/18 04:44 Lamotrigine (Lamictal Tab) 200 mg BID17 PO 04/16/18 09:00 05/16/18 08:59 Metoprolol Tartrate (Lopressor Tab) 12.5 mg BID PO 04/16/18 09:00 05/16/18 08:59 Multivitamins (Multivitamin Tab) 1 tab QAM PO 04/16/18 09:00 05/16/18 08:59 Quetiapine Fumarate (seroQUEL TAB) 25 mg HS PO 04/16/18 21:00 05/16/18 20:59 Risperidone (Risperdal Tab) 0.25 mg TID PO 04/16/18 09:00 05/16/18 08:59 Senna/Docusate Sodium (Senokot S Tab) 1 tab QDL PO 04/16/18 11:30 05/16/18 11:29 Sertraline HCl (Zoloft Tab) 25 mg QAM PO 04/16/18 09:00 05/16/18 08:59 Polyethylene (Miralax Powder Packet) 17 gm QDL PRN PO 04/16/18 04:45 05/16/18 04:44 Oxycodone/ Acetaminophen (Percocet 5-325mg Tab) 1 tab Q6H PRN PO 04/16/18 04:45 04/30/18 04:44 Prochlorperazine Edisylate 5 mg/ Syringe 5 ml @ 5 mls/min Q6H PRN IV 04/16/18 04:45 05/16/18 04:44 Morphine Sulfate (MoRPHine SULFATE INJ) 2 mg Q4H PRN IV 04/16/18 04:45 04/30/18 04:44 Miscellaneous (Iv Fluids Completed) 1 ea PRN PRN N/A 04/16/18 05:15 04/16/19 05:14 Levothyroxine Sodium (Synthroid Tab) 75 mcg DAILYBB PO 04/16/18 06:30 05/16/18 06:29 Haloperidol Lactate (Haldol Inj) 2.5 mg Q6H PRN IM 04/16/18 13:45 05/16/18 13:29 UNV Physical Exam Vital Signs (Past 24 Hrs): Date Time Temp Pulse Resp B/P (MAP) Pulse Ox O2 Delivery O2 Flow Rate FiO2 04/16/18 12:06 36.8 71 18 141/54 (83) 96 Room Air 04/16/18 08:17 Room Air 04/16/18 07:30 36.8 76 18 119/54 (75) 93 Room Air 04/16/18 06:00 36.5 75 16 90/54 97 Room Air 04/16/18 06:00 75 16 90/54 (66) 97 Room Air 04/16/18 03:59 65 16 145/68 96 Room Air 04/16/18 02:24 58 20 158/71 95 Room Air 04/16/18 01:18 60 18 178/80 95 Room Air 04/16/18 01:13 64 04/16/18 00:16 36.5 65 18 151/69 96 Room Air Physical Exam: Constitutional: appearance disheveled, agitated Ears, Nose, Mouth and Throat: mucous membranes moist, no injection and skin normal, eyes normal Cardiovascular: normal S-1 and S-2 and regular rate and rhythm Respiratory: course breath sounds Musculoskeletal: no peripheral edema and good distal pulses Skin: no stigmata of neurocutaneous disease noted and normal and intact Eyes: extraocular muscles intact (EOMI) and pupils equal, round and reactive to light (PERRL) NEUROLOGIC EXAMINATION: Mental status: Alert and interactive Oriented to person not oriented to place and does not know why he is here Cranial Nerves facial symmetry Reflexes: Deep tendon reflexes were symmetrical and graded 2/5. Plantar responses were flexor. Sensory: no deficit to light touch Coordination: will not cooperate with exam Gait/Stance: Posture lying in bed restrained UE and Somerset J Strength: hand ingot supervisor biceps triceps, hip flex bilaterally 5/5 Laboratory Results Past 24 Hours: 04/16/18 00:35 Red Blood Count 3.71, Mean Corpuscular Volume 90.3, Mean Corpuscular Hemoglobin 29.4, Mean Corpuscular Hemoglobin Concent 32.5, Mean Platelet Volume 9.4, Neutrophils (%) (Auto) 69.9, Lymphocytes (%) (Auto) 20.4, Monocytes (%) (Auto) 7.5, Eosinophils (%) (Auto) 1.8, Basophils (%) (Auto) 0.1, Neutrophils # (Auto) 5.16, Lymphocytes # (Auto) 1.50, Monocytes # (Auto) 0.55, Eosinophils # (Auto) 0.13, Basophils # (Auto) 0.01 04/16/18 00:35 Test 04/16/18 00:35 04/16/18 01:06 04/16/18 03:27 04/16/18 09:28 White Blood Count 7.37 K/uL (4.8-10.8) Red Blood Count 3.71 M/uL (4.7-6.1) Hemoglobin 10.9 g/dL (14.0-18.0) Hematocrit 33.5 % (42-52) Mean Corpuscular Volume 90.3 fL (80-100) Mean Corpuscular Hemoglobin 29.4 pg (25-34) Mean Corpuscular Hemoglobin Concent 32.5 g/dl (32-36) Platelet Count 264 K/uL (130-400) Mean Platelet Volume 9.4 fL (7.4-10.4) Neutrophils (%) (Auto) 69.9 % Lymphocytes (%) (Auto) 20.4 % Monocytes (%) (Auto) 7.5 % Eosinophils (%) (Auto) 1.8 % Basophils (%) (Auto) 0.1 % Neutrophils # (Auto) 5.16 K/uL (1.4-6.5) Lymphocytes # (Auto) 1.50 K/uL (1.2-3.4) Monocytes # (Auto) 0.55 K/uL (0.11-0.59) Eosinophils # (Auto) 0.13 K/uL (0-0.5) Basophils # (Auto) 0.01 K/uL (0-0.2) RDW Standard Deviation 46.2 fL (36.4-46.3) RDW Coefficient of Variation 13.9 % (11.5-14.5) Immature Granulocyte % (Auto) 0.3 % Immature Granulocyte # (Auto) 0.02 K/uL (0.00-0.02) Prothrombin Time 10.0 SECONDS (9.0-12.0) Prothromb Time International Ratio 1.0 (0.9-1.1) Activated Partial Thromboplast Time 26.8 SECONDS (21.0-31.0) Partial Thromboplastin Ratio 1.0 Anion Gap 7.0 mmol/L (3-11) Est Creatinine Clear Calc Drug Dose 67.6 ml/min Estimated GFR () 98.6 Estimated GFR (Non- 85.1 BUN/Creatinine Ratio 23.3 (10-20) Estimated Average Glucose 114 mg/dl Hemoglobin A1c 5.6 % (4.5-5.6) Calcium Level 8.8 mg/dl (8.5-10.1) Total Bilirubin 0.6 mg/dl (0.2-1) Direct Bilirubin 0.3 mg/dl (0-0.2) Aspartate Amino Transf (AST/SGOT) 66 U/L (15-37) Alanine Aminotransferase (ALT/SGPT) 61 U/L (12-78) Alkaline Phosphatase 114 U/L (45-117) Total Protein 7.1 gm/dl (6.4-8.2) Albumin 3.4 gm/dl (3.4-5.0) Lipase 112 U/L (73-393) Phenytoin (Dilantin) Level < 0.4 mcg/mL (10-20) Bedside Troponin I 0.060 ng/ml (0-0.045) Magnesium Level 2.3 mg/dl (1.8-2.4) Total Creatine Kinase 852 U/L (39-308) Thyroid Stimulating Hormone (TSH) 0.733 uIu/ml (0.300-4.500) Troponin I 0.040 ng/ml (0-0.045) Test 04/16/18 11:36 04/16/18 12:15 Urine Color YELLOW Urine Appearance CLEAR (CLEAR) Urine pH 6.0 (4.5-7.5) Urine Specific Floyd 1.013 (1.000-1.030) Urine Protein NEG (NEG) Urine Glucose (UA) NEG (NEG) Urine Ketones NEG (NEG) Urine Occult Blood NEG (NEG) Urine Nitrite NEG (NEG) Urine Bilirubin NEG (NEG) Urine Urobilinogen NEG (NEG) Urine Leukocyte Esterase NEG (NEG) Imaging CT head- No acute intracranial abnormality. Nasal bone deformity suggesting old fractures. Mild frontal scalp swelling. TTE- There is mild concentric left ventricular hypertrophy. * The left ventricular wall motion is normal. * Left ventricular ejection Fraction = 60-65%. * Aortic valve sclerosis mild, without significant aortic valvular stenosis. NO ASD Impression 82 year old with history of dementia, seizure disorder, multiple falls Plan 1. dementia and some what delusion 2. lamictal level pending 3. unclear baseline 4. kwethluk J in place due to fall will need imaging and ortho clearance once cooperative 5. CT head no acute findings 6. EEG pending read 7. MRI brain would be helpful to r/o organic causes of MS change 8. RPR, folate, B12, thiamine levels tomorrow am 9. TTE- no ASD I have seen and discussed above patient with Dr Selam Wyman, neurology Pt seen and discussed with son. Pt lives alone, admins meds through med box and pays bills. Neighbor found him calling for help on Wed am in an unusual seated position, incontinent (baseline), confused, bruised. Went the ER, Lamictal level 18 dc to HS, there less than 1 day, fell OOB. Unclear if current med list is accurate, Xferred to our facility, More confused this am, not recognizing son. Better this afternoon. Awake, mildly sleepy, mildly agitiated by C collar.disoriented to place, knows name, some, names, follows simple commands. No facial asymm, mild dysartrhia moves all fours symmetrically, no pathologic reflexes. Imp delirium superimposed on mild dementia, query unwitnessed sz with post-ictal confusion. Query med errors with delirium. P Son to confirm with brother meds, doses. MRI brain eval for new event. EEG, no evidence of nonconvulsive status. Observation. CAROLIN Wyman MD,
--- NOTE | 2018-04-16 14:50 | ECHOCARDIOGRAM REPORT ---
*NOTICE TO RECEIVING [employer] This information is strictly Confidential and protected under [place] law. [place] law prohibits you from making any further disclosure of this information unless further disclosure is expressly permitted by the written consent of the person to whom it pertains or is authorized by law. A general authorization for the release of medical or other information is not sufficient for this purpose. Hospital accepts no responsibility if the information is made available to any other person, INCLUDING THE PATIENT. Interpretation Summary * Name: MALLORY SHANE Study Date: 04/16/2018 10:42 AM BP: 119/54 mmHg * Patient Location: C.2T\S\S232\S\1 HR: 72 * : 1935 (M/d/yyyy) Gender: Male Height: 67 in * Age: 82 yrs Ethnicity: CA Weight: 139 lb * Ordering Physician: Ayden Quintanilla * Referring Physician: Dominguez Mendez * Performed By: Rasheeda Stokes RDCS * * Reason For Study: SYNCOPE * BSA: 1.7 m2 * -- Conclusions -- * Study was technically limited but adequate for the referral indication. * There is mild concentric left ventricular hypertrophy. * The left ventricular wall motion is normal. * Left ventricular ejection Fraction = 60-65%. * Aortic valve sclerosis mild, without significant aortic valvular stenosis. Procedure Details * A saline contrast injection was performed to assess for cardiac shunting. * The injection was performed through an intravenous line in the left arm. * The attending nurse who injected the saline contrast was LUIS OCHOA. * A total of 10 cc of agitated saline was given. * A contrast injection of Definity was performed to improve assessment of LV function. * Contrast was injected into an intravenous site in the left arm. * One vial of Definity ultrasound contrast was diluted in normal saline to a total volume of 10 ml. A total of '2' ml of solution was administered during imaging. * Lot # [id number] of Definity utilized for procedure. * Expiration date APR 01. * The attending nurse who injected the contrast agent was LUIS OCHOA. * A complete two-dimensional transthoracic echocardiogram was performed (2D, M-mode, Doppler and color flow Doppler). Left Ventricle * The left ventricle is normal in size. * There is mild concentric left ventricular hypertrophy. * Left ventricular systolic function is normal. * Ejection Fraction = 60-65%. * The left ventricular wall motion is normal. Right Ventricle * The right ventricle is normal in size and function. Atria * The left atrial size is normal. * Right atrial size is normal. * There is no evidence of atrial septal defect, but resolution does not allow assessment for a patent foramen ovale. Mitral Valve * The mitral valve is normal. * There is no mitral valve stenosis. * Significant mitral regurgitation is absent. Tricuspid Valve * The tricuspid valve is normal. * There is no tricuspid stenosis. * Significant tricuspid regurgitation is absent. * Doppler findings do not suggest pulmonary hypertension. Aortic Valve * The aortic valve is trileaflet. * Aortic valve sclerosis mild, without significant aortic valvular stenosis. * Aortic stenosis is absent. * There is no significant aortic regurgitation. Pulmonic Valve * The pulmonary valve is not well seen, but the Doppler examination is normal without significant regurgitation or stenosis. Great Vessels * The aortic root and proximal ascending aorta are normal sized. Pericardium/Pleural * There is no pericardial effusion. Great Vessels * Normal inferior vena cava diameter and respiratory variation suggests normal central venous pressure. * Normal inferior vena cava size and collapsability with sniff indicates a normal right atrial pressure of 3 mmHg Left Ventricular Diastolic Function * Grade I diastolic dysfunction, (abnormal relaxation pattern). MMode 2D Measurements and Calculations IVSd 1.5 cm IVSs 2.0 cm LVIDd 4.0 cm LVIDs 2.7 cm LVPWd 1.5 cm LVPWs 1.8 cm IVS/LVPW 1.0 FS 31.0 % EDV(Teich) 68.7 ml ESV(Teich) 28.0 ml EF(Teich) 59.3 % EDV(cubed) 62.5 ml ESV(cubed) 20.5 ml EF(cubed) 67.1 % % IVS thick 34.3 % % LVPW thick 19.3 % LV mass(C)d 233.0 grams LV mass(C)dI 134.5 grams/m\S\2 LV mass(C)s 219.6 grams LV mass(C)sI 126.8 grams/m\S\2 SV(Teich) 40.7 ml SI(Teich) 23.5 ml/m\S\2 SV(cubed) 42.0 ml SI(cubed) 24.2 ml/m\S\2 Ao root diam 3.6 cm Ao root area 10.3 cm\S\2 LA dimension 4.1 cm LA/Ao 1.1 LVOT diam 2.0 cm LVOT area 3.1 cm\S\2 LVAd ap4 29.5 cm\S\2 LVLd ap4 8.0 cm EDV(MOD-sp4) 89.1 ml EDV(sp4-el) 92.6 ml LVAs ap4 18.4 cm\S\2 LVLs ap4 7.2 cm ESV(MOD-sp4) 40.1 ml ESV(sp4-el) 39.6 ml EF(MOD-sp4) 55.1 % EF(sp4-el) 57.2 % SV(MOD-sp4) 49.1 ml SI(MOD-sp4) 28.3 ml/m\S\2 SV(sp4-el) 53.0 ml SI(sp4-el) 30.6 ml/m\S\2 Doppler Measurements and Calculations MV E max laron 50.9 cm/sec MV A max laron 79.1 cm/sec MV E/A 0.64 MV dec time 0.42 sec Ao V2 max 90.2 cm/sec Ao max PG 3.3 mmHg Ao max PG (full) 0.99 mmHg ARMINDA(V,A) 2.6 cm\S\2 ARMINDA(V,D) 2.6 cm\S\2 LV V1 max PG 2.3 mmHg LV V1 max 75.2 cm/sec TR max laron 250.4 cm/sec
[2018-04-16 15:59] VITALS: BP 157/80; PULSE 87; TEMP 37.4; O2SAT 94
[2018-04-16] MEDS ORDERED: NSS + 20MEQ KCL 1000ML 1,000 ML IV ONE (18:30)
[2018-04-16 20:00] VITALS: BP 185/78; PULSE 85; TEMP 37.5; O2SAT 97
[2018-04-16] MEDS: ATORVASTATIN 10 MG TAB PO SCH (20:50)
[2018-04-16] MEDS ORDERED: QUETIAPINE FUMARATE 25 MG TAB PO SCH (21:00)
[2018-04-16] MEDS: MoRPHine SULFATE 2 MG/ML CARP IV PRN (21:07)
[2018-04-16] MEDS: HALOPERIDOL LACTATE 5 MG/ML 1 ML VIAL IM PRN (21:17)
[2018-04-16 23:50] VITALS: BP 134/54; PULSE 81; TEMP 37.4
[2018-04-17] VITALS (7 sets, daily range): BP systolic 135–168; BP diastolic 66–84; PULSE 75–86; TEMP 36.3–37.3; O2SAT 90–95
[2018-04-17] MEDS ORDERED: OLANZAPINE 10 MG/2.1 ML SDV IM STA (00:57)
[2018-04-17] MEDS ORDERED: LEVOTHYROXINE 75 MCG TAB PO SCH (06:00)
[2018-04-17] MEDS: LEVOTHYROXINE 75 MCG TAB PO SCH (06:00)
[2018-04-17 07:40] LABS: EOS % 0.1 %; EOS ABS # 0.01 K/uL (0-0.5); HEMATOCRIT 33.1 % (42-52); HEMOGLOBIN 11.2 g/dL (14.0-18.0); IG# 0.03 K/uL (0.00-0.02); LYMPH % 10.3 %; LYMPH ABS # 1.17 K/uL (1.2-3.4); MEAN CELL VOLUME 90.4 fL (80-100); MEAN CORPUSCULAR HEMOGLOBIN 30.6 pg (25-34); MEAN CORPUSCULAR HGB CONC 33.8 g/dl (32-36); MEAN PLATELET VOLUME 9.8 fL (7.4-10.4); MONO % 8.8 %; NEUT % 80.5 %; NEUT ABS # 9.11 K/uL (1.4-6.5); PLATELET COUNT 264 K/uL (130-400); WHITE BLOOD COUNT 11.32 K/uL (4.8-10.8)
[2018-04-17] MEDS: ENOXAPARIN 30 MG/0.3 ML SYR SC SCH (08:09)
[2018-04-17 08:16] LABS: ALBUMIN 3.5 gm/dl (3.4-5.0); CALCIUM 9.2 mg/dl (8.5-10.1); CREATININE 0.64 mg/dl (0.60-1.40); POTASSIUM 3.3 mmol/L (3.5-5.1); TOTAL PROTEIN 7.5 gm/dl (6.4-8.2)
[2018-04-17] MEDS: ASPIRIN 81 MG ECTAB PO SCH (09:00)
[2018-04-17] MEDS ORDERED: LISINOPRIL 2.5 MG TAB PO SCH (09:00)
[2018-04-17] MEDS: METOPROLOL TARTRATE 25 MG TAB PO SCH ×2 (09:00→21:11)
[2018-04-17] MEDS: RISPERIDONE 0.5 MG TAB PO SCH (09:00)
[2018-04-17] MEDS: MULTIVITAMIN TAB PO SCH (09:00)
[2018-04-17] MEDS: DOCUSATE SODIUM/SENNA 50/8.6MG TAB PO SCH (09:43)
[2018-04-17] MEDS: SERTRALINE HCL 50 MG TAB PO SCH (09:43)
--- NOTE | 2018-04-17 11:19 | Progress Note ---
Internal Med Progress Note Date of Service: Apr 17, 2018. Provider Documentation: SUBJECTIVE: Seen and examined at bedside Remains Restrained, Confused Agitated overnight Lost IV access overnight Discussed with Son in detail Obtained updated home medication list No witnessed seizures while hospitalized Moves all extremities OBJECTIVE: Vital Signs-as noted below Physical Exam: General Appearance:Moderately built and nourished, no apparent distress Head: normocephalic, +small Right scalp swelling Eyes: normal inspection, EOMI, PERRL Neck: supple, Trachea midline Respiratory/Chest: Decreased breath sounds, CTA Cardiovascular: S1, S2, + murmur Abdomen/GI:Soft, Non tender, Bowel sounds present Extremities/Musculoskelatal:normal inspection, no edema Neurologic/Psych:Moves all extremities, confused, Obtunded Skin: normal color, warm, multiple bruises on extremities Lab data as noted below. ASSESSMENT & PLAN: Altered mental Status Insetting of Dementia at baseline and H/O seizures DD: 2/2 Medications, Delirium, Postictal CT head; No acute intracranial abnormality. Nasal bone deformity suggesting old fractures. Mild frontal scalp swelling. CT Neck: Age-indeterminate odontoid fracture with 7.5 mm of posterior displacement of the superior fragment (displacement has increased from prior CT suggestive of 3mm displacement) Hold sedatives as able Hold Seroquel EEG:no evidence of nonconvulsive status Plan to repeat CT head today Neuro checks, Seizure/Fall precautions Appreciate Neurology Input UA normal Orthopedics consulted for Input Planned to be started on Keppra per Neurology Seizure Disorder Patient's Son reports that patient missed his Lamictal dose yesterday and the day prior as well Lamictal levels pending Continue Lamictal 200mg BID and 250mg QHS Ativan PRN Seizure precautions EEG:no evidence of nonconvulsive status Planned to be started on Keppra Neurology following Age-indeterminate odontoid fracture with 7.5 mm of posterior displacement of the superior fragment Prior Ct reviewed: displacement seemed to have increased from 3mm noted on CT in January 2017 Known H/O neck fracture as per Son Orthopedics consulted H/O Recurrent Falls PT/OT eval Will need Rehab H/O CAD S/P CABG H/O ischemic cardiomyopathy No signs of decompensation Continue home meds ECHO: * Study was technically limited but adequate for the referral indication. * There is mild concentric left ventricular hypertrophy. * The left ventricular wall motion is normal. * Left ventricular ejection Fraction = 60-65%. * Aortic valve sclerosis mild, without significant aortic valvular stenosis. Hypothyroidism TSH, Free T4:Normal Continue Levothyroxine DVT Px: Lovenox SQ Code Status: DNI/DNR: Confirmed with Patient's Son Disposition: To be determined Family: Patient's Son: Hector De La Garza requesting updates from providers [phone] Vital Signs: Date Time Temp Pulse Resp B/P (MAP) Pulse Ox O2 Delivery O2 Flow Rate FiO2 04/17/18 09:00 95 Room Air 04/17/18 08:05 36.9 79 20 142/84 (103) 95 Room Air 04/17/18 04:40 37.2 75 22 135/77 (96) 91 Room Air 04/16/18 23:50 37.4 81 20 134/54 (80) Room Air 04/16/18 21:58 Room Air 04/16/18 20:00 37.5 85 18 185/78 (113) 97 Nasal Cannula 04/16/18 16:00 Room Air 04/16/18 15:59 37.4 87 19 157/80 (105) 94 Room Air 04/16/18 12:06 36.8 71 18 141/54 (83) 96 Room Air Lab Results: Results Past 24 Hours Test 04/16/18 11:36 04/16/18 12:15 04/17/18 07:25 Range/Units Urine Color YELLOW Urine Appearance CLEAR CLEAR Urine pH 6.0 4.5-7.5 Urine Specific [place] 1.013 1.000-1.030 Urine Protein NEG NEG Urine Glucose (UA) NEG NEG Urine Ketones NEG NEG Urine Occult Blood NEG NEG Urine Nitrite NEG NEG Urine Bilirubin NEG NEG Urine Urobilinogen NEG NEG Urine Leukocyte Esterase NEG NEG White Blood Count 11.32 4.8-10.8 K/uL Red Blood Count 3.66 4.7-6.1 M/uL Hemoglobin 11.2 14.0-18.0 g/dL Hematocrit 33.1 42-52 % Mean Corpuscular Volume 90.4 80-100 fL Mean Corpuscular Hemoglobin 30.6 25-34 pg Mean Corpuscular Hemoglobin Concent 33.8 32-36 g/dl Platelet Count 264 130-400 K/uL Mean Platelet Volume 9.8 7.4-10.4 fL Neutrophils (%) (Auto) 80.5 % Lymphocytes (%) (Auto) 10.3 % Monocytes (%) (Auto) 8.8 % Eosinophils (%) (Auto) 0.1 % Basophils (%) (Auto) 0.0 % Neutrophils # (Auto) 9.11 1.4-6.5 K/uL Lymphocytes # (Auto) 1.17 1.2-3.4 K/uL Monocytes # (Auto) 1.00 0.11-0.59 K/uL Eosinophils # (Auto) 0.01 0-0.5 K/uL Basophils # (Auto) 0.00 0-0.2 K/uL RDW Standard Deviation 46.0 36.4-46.3 fL RDW Coefficient of Variation 14.0 11.5-14.5 % Immature Granulocyte % (Auto) 0.3 % Immature Granulocyte # (Auto) 0.03 0.00-0.02 K/uL Sodium Level 138 136-145 mmol/L Potassium Level 3.3 3.5-5.1 mmol/L Chloride Level 101 98-107 mmol/L Carbon Dioxide Level 29 21-32 mmol/L Anion Gap 8.0 3-11 mmol/L Blood Urea Nitrogen 11 7-18 mg/dl Creatinine 0.64 0.60-1.40 mg/dl Est Creatinine Clear Calc Drug Dose 74.3 ml/min Estimated GFR () 106.4 Estimated GFR (Non- 91.8 BUN/Creatinine Ratio 17.5 10-20 Random Glucose 113 70-99 mg/dl Calcium Level 9.2 8.5-10.1 mg/dl Total Bilirubin 1.0 0.2-1 mg/dl Aspartate Amino Transf (AST/SGOT) 57 15-37 U/L Alanine Aminotransferase (ALT/SGPT) 59 12-78 U/L Alkaline Phosphatase 113 45-117 U/L Total Creatine Kinase 804 39-308 U/L Total Protein 7.5 6.4-8.2 gm/dl Albumin 3.5 3.4-5.0 gm/dl Globulin 4.0 2.5-4.0 gm/dl Albumin/Globulin Ratio 0.9 0.9-2 Vitamin B12 Level 1947 211-911 pg/mL Folate 21.37 >5.38 ng/mL Thyroid Stimulating Hormone (TSH) 0.466 0.300-4.500 uIu/ml Free Thyroxine 1.22 0.80-1.60 ng/dl
--- NOTE | 2018-04-17 11:20 | DIAGNOSTIC IMAGING REPORT ---
CT SCAN OF THE BRAIN WITHOUT IV CONTRAST CLINICAL HISTORY: Change in mental status. COMPARISON STUDY: CT of the brain dated 04/16/2018. TECHNIQUE: Unenhanced axial CT scan of the brain is performed from the vertex to the skull base. A dose lowering technique was utilized adhering to the principles of ALARA. The examination is modestly degraded by motion artifact. CT DOSE: 1375.95 mGy.cm FINDINGS: Brain parenchyma: There are age-related involutional changes noting moderate patchy subcortical and periventricular microangiopathic change. There is no hemorrhage, mass effect, or evidence of acute territorial ischemia by CT criteria. Ortiz-white matter is preserved. No extra-axial fluid collection is seen. Ventricles, sulci, cisterns: Prominent secondary to involutional change. Intracranial vasculature: There is atherosclerotic calcification of the cavernous carotid and vertebral arteries. Calvarium: The skeletal structures are osteopenic. The calvarium appears intact. Soft tissues: There is a small frontal scalp contusion. Sinuses and mastoids: The visualized paranasal sinuses are clear. The mastoid air cells are well pneumatized. Orbits: The bony orbits are grossly intact. IMPRESSION: Senescent changes as above with no hemorrhage, mass effect, or evidence of acute territorial ischemia by CT criteria. There has been no significant change from yesterday. Electronically signed by: Yo Murphy M.D. 04/17/2018 11:19 AM Dictated Date/Time: 04/17/2018 11:16 AM
[2018-04-17] MEDS: LEVETIRACETAM IV 1,000 MG in DEXTROSE 5% 100ML 100 ML IV SCH ×2 (12:03→21:06)
--- NOTE | 2018-04-17 12:23 | PROGRESS NOTE ---
DATE: 04/17/2018 SUBJECTIVE: I am seeing Mr. De La Garza in followup. He was admitted after presenting to [facility] being found in his chair confused, with evidence of bruising. He has a known history of seizure disorder. His Lamictal level while in the Emergency Room is 18, which is mildly elevated. He was transferred to [facility]. There has been some confusion about his medication dosing, and while I was there seeing the patient at the bedside with Dr. Rockwell, his son called in and made some clarification. It sounds as if his Lamictal dose is 200 in the morning, 200 in the afternoon, and 250 at night. He is no longer on Dilantin, and he does take Seroquel 25 at bedtime and Risperdal 3 times a day. He was self-administering this medication, which one of the sons indicates perhaps he was not doing as well at home as the other brothers portray. He had intermittent hospitalizations it sounds like for encephalopathy. Overnight he received some Zyprexa, otherwise has not been able to take by mouth due to his delirium. OBJECTIVE: He is sleepy, will arouse to name, does not follow commands, was able to state his name to the nurse. There is no fixed gaze preference. Pupils are reactive. I could not visualize the optic nerves. There is no facial asymmetry. Speech is dysarthric consistent with his level of alertness, and he moves all 4 extremities symmetrically. His toe reflexes are nonpathologic, and his toes are downgoing. IMPRESSION: This is a patient with a known seizure disorder, who in the past has had modestly difficult to control seizures. One son indicates he has not had a seizure for 5 years, the other son indicates it is certainly possible that he may have had seizures. He was found confused at the home, incontinent although incontinence is not new. It does raise the question of whether or not there could have been a breakthrough seizure. At this point, the issue is that he is currently delirious. He has not received IV fluids as he has pulled out access and received some Zyprexa overnight but inconsistent medications by mouth due to his delirium. Clinically, he looks nonfocal, and I do not see any evidence of seizure activity. PLAN: Nursing will continue if appropriate to give oral medications. I am going to give him Keppra 1000 mg twice a day until we can reliably get him to take by mouth. On speaking to his son, he has never been on that, and at very least, he has no allergies to anticonvulsants. A followup CT would be reasonable as well as some labs. We would not make any decisions about long-term anticonvulsants in the interim. If the patient was delirious, was unresponsive, or there was any evidence of ongoing seizure activity, he might need to be transferred for inpatient seizure monitoring, I do not think that is the case at present. We spoke at length with Dr. Rockwell, and I spoke at length with the patient's son. CONSTANTINE
[2018-04-17] MEDS: HALOPERIDOL LACTATE 5 MG/ML 1 ML VIAL IM PRN ×2 (13:13→22:22)
[2018-04-17] MEDS ORDERED: NURSING VERBAL MED ORDER ONE (14:00)
[2018-04-17] MEDS ORDERED: HALOPERIDOL LACTATE 5 MG/ML 1 ML VIAL IV STA (14:05)
[2018-04-17] MEDS ORDERED: NSS + 20MEQ KCL 1000ML 1,000 ML IV SCH (14:30)
[2018-04-17] MEDS: ATORVASTATIN 10 MG TAB PO SCH (21:11)
[2018-04-18] VITALS (7 sets, daily range): BP systolic 136–174; BP diastolic 56–87; PULSE 76–94; TEMP 36.7–37; O2SAT 93–100
[2018-04-18] MEDS ORDERED: ALBUT/IPRATROP 3MG/0.5MG NEB 3 ML VIAL INH STA (00:26)
[2018-04-18] MEDS ORDERED: ALBUT/IPRATROP 3MG/0.5MG NEB 3 ML VIAL INH PRN (00:30)
[2018-04-18] MEDS ORDERED: FUROSEMIDE 40 MG/4 ML VIAL ONE (00:41)
[2018-04-18] MEDS ORDERED: FUROSEMIDE INJ 40 MG in SYRINGE 0 ML IV ONE (00:45)
[2018-04-18] MEDS ORDERED: METHYLPREDNISOLONE IV 20 MG in SYRINGE 0 ML IV ONE (00:45)
[2018-04-18] MEDS: MoRPHine SULFATE 2 MG/ML CARP IV PRN ×2 (00:54→05:59)
[2018-04-18] MEDS ORDERED: OLANZAPINE 10 MG/2.1 ML SDV IM PRN (01:00)
--- NOTE | 2018-04-18 01:05 | Progress Note ---
Internal Med Progress Note Date of Service: Apr 18, 2018. Provider Documentation: SUBJECTIVE: Made aware by RN of intermittent "gasping" breathing O2 sats later dropped to the 60s. No cough symptoms noted. OBJECTIVE: Vital Signs-as noted below Exam: General-jagged breathing, disoriented, blank stare noted HEENT - pale palp conjunctivae, dry buccal mucosa Neck-supple Lungs-exp wheezes Heart-RRR Abdomen-soft Extremities-healing contusions noted, NE : disoriented, involuntary shaking of all 4 extremities Chest x-ray as per my interpretation pulmonary congestion ASSESSMENT & PLAN: Acute hypoxemic failure secondary to fluid overload Involuntary movements ? seizures Supplemental O2 Baseline ABG Hold IV fluid, stat Lasix Nebs, Solu-Medrol for bronchospasm Aspiration precautions Hold Haldol for now RE potential to lower seizure threshold. Utilize Zyprexa for agitation Will relay developments to AM provider. Vital Signs: Date Time Temp Pulse Resp B/P (MAP) Pulse Ox O2 Delivery O2 Flow Rate FiO2 04/18/18 08:00 Room Air 04/18/18 06:57 36.9 76 18 136/67 (90) 100 6.0 04/18/18 03:13 36.9 93 26 174/56 (95) 100 6.0 04/18/18 01:01 89 28 100 Nasal Cannula 60.0 100 04/17/18 23:59 37.0 86 18 159/79 (105) 92 04/17/18 20:39 Room Air 04/17/18 19:17 37.2 79 26 160/66 (97) 92 Room Air 04/17/18 15:20 36.3 85 26 162/76 (104) 90 Room Air 04/17/18 12:07 37.3 79 20 168/75 (106) 95 Room Air Lab Results: Results Past 24 Hours Test 04/18/18 00:59 Range/Units White Blood Count 12.86 4.8-10.8 K/uL Red Blood Count 3.48 4.7-6.1 M/uL Hemoglobin 10.7 14.0-18.0 g/dL Hematocrit 31.3 42-52 % Mean Corpuscular Volume 89.9 80-100 fL Mean Corpuscular Hemoglobin 30.7 25-34 pg Mean Corpuscular Hemoglobin Concent 34.2 32-36 g/dl Platelet Count 246 130-400 K/uL Mean Platelet Volume 9.4 7.4-10.4 fL Neutrophils (%) (Auto) 84.4 % Lymphocytes (%) (Auto) 7.5 % Monocytes (%) (Auto) 7.7 % Eosinophils (%) (Auto) 0.1 % Basophils (%) (Auto) 0.0 % Neutrophils # (Auto) 10.85 1.4-6.5 K/uL Lymphocytes # (Auto) 0.97 1.2-3.4 K/uL Monocytes # (Auto) 0.99 0.11-0.59 K/uL Eosinophils # (Auto) 0.01 0-0.5 K/uL Basophils # (Auto) 0.00 0-0.2 K/uL RDW Standard Deviation 45.3 36.4-46.3 fL RDW Coefficient of Variation 13.8 11.5-14.5 % Immature Granulocyte % (Auto) 0.3 % Immature Granulocyte # (Auto) 0.04 0.00-0.02 K/uL Arterial Blood pH 7.43 7.35-7.45 Arterial Blood Partial Pressure CO2 38 35-46 mmHg Arterial Blood Partial Pressure O2 403 80-95 mm/Hg Arterial Blood HCO3 24 19-24 mmol/L Arterial Blood Oxygen Saturation 99.7 90-95 % Arterial Blood Base Excess 0.2 -9-1.8 mEq/L Arterial Blood Gas Delivery 60 L Renny Test POS POS Sodium Level 135 136-145 mmol/L Potassium Level 3.2 3.5-5.1 mmol/L Chloride Level 103 98-107 mmol/L Carbon Dioxide Level 23 21-32 mmol/L Anion Gap 9.0 3-11 mmol/L Blood Urea Nitrogen 14 7-18 mg/dl Creatinine 0.62 0.60-1.40 mg/dl Est Creatinine Clear Calc Drug Dose 76.7 ml/min Estimated GFR () 107.8 Estimated GFR (Non- 93.0 BUN/Creatinine Ratio 22.0 10-20 Random Glucose 133 70-99 mg/dl Calcium Level 8.6 8.5-10.1 mg/dl Magnesium Level 2.1 1.8-2.4 mg/dl Ammonia 14.0 11-32 umol/L Microbiology Results 04/18/18 MRSA DNA Surveillance Screen, Received Pending 04/18/18 Gram Stain, Received Pending 04/18/18 Wound Culture, Received Pending
[2018-04-18 01:14] LABS: EOS % 0.1 %; EOS ABS # 0.01 K/uL (0-0.5); HEMATOCRIT 31.3 % (42-52); HEMOGLOBIN 10.7 g/dL (14.0-18.0); IG# 0.04 K/uL (0.00-0.02); LYMPH % 7.5 %; LYMPH ABS # 0.97 K/uL (1.2-3.4); MEAN CELL VOLUME 89.9 fL (80-100); MEAN CORPUSCULAR HEMOGLOBIN 30.7 pg (25-34); MEAN CORPUSCULAR HGB CONC 34.2 g/dl (32-36); MEAN PLATELET VOLUME 9.4 fL (7.4-10.4); MONO % 7.7 %; MONO ABS # 0.99 K/uL (0.11-0.59); NEUT % 84.4 %; NEUT ABS # 10.85 K/uL (1.4-6.5); PLATELET COUNT 246 K/uL (130-400); RED CELL DISTRIBUTION WIDTH CV 13.8 % (11.5-14.5); RED CELL DISTRIBUTION WIDTH SD 45.3 fL (36.4-46.3); WHITE BLOOD COUNT 12.86 K/uL (4.8-10.8)
[2018-04-18 01:33] LABS: CALCIUM 8.6 mg/dl (8.5-10.1); CREATININE 0.62 mg/dl (0.60-1.40); POTASSIUM 3.2 mmol/L (3.5-5.1)
[2018-04-18] MEDS: POTASSIUM CHLR 10 MEQ / WTR 100 ML IV SCH ×4 (02:23→06:49)
[2018-04-18] MEDS: LEVOTHYROXINE 75 MCG TAB PO SCH (06:00)
--- NOTE | 2018-04-18 06:14 | DIAGNOSTIC IMAGING REPORT ---
CHEST ONE VIEW PORTABLE CLINICAL HISTORY: sob dyspnea COMPARISON STUDY: 04/16/2018 FINDINGS: Persistent mild cardiomegaly. Prior median sternotomy. Prominence of pulmonary vasculature slightly increased from the prior exam. Diaphragms smooth. IMPRESSION: Mild congestive heart failure. The above report was generated using voice recognition software. It may contain grammatical, syntax or spelling errors. Electronically signed by: Justo Kahn M.D. 04/18/2018 6:13 AM Dictated Date/Time: 04/18/2018 6:11 AM
[2018-04-18] MEDS: ENOXAPARIN 30 MG/0.3 ML SYR SC SCH (06:49)
[2018-04-18] MEDS: LEVETIRACETAM IV 1,000 MG in DEXTROSE 5% 100ML 100 ML IV SCH ×2 (08:39→21:19)
[2018-04-18] MEDS: SERTRALINE HCL 50 MG TAB PO SCH (08:41)
[2018-04-18] MEDS: METOPROLOL TARTRATE 25 MG TAB PO SCH ×2 (08:41→20:53)
[2018-04-18] MEDS: MULTIVITAMIN TAB PO SCH (08:41)
[2018-04-18] MEDS: ASPIRIN 81 MG ECTAB PO SCH (08:41)
[2018-04-18] MEDS ORDERED: VANCOMYCIN IV 1,250 MG in SODIUM CHLORIDE 0.9% 250ML 250 ML IV STA (09:19)
[2018-04-18] MEDS ORDERED: VANCOMYCIN CONSULT ACTIVE SCH (09:20)
--- NOTE | 2018-04-18 09:22 | Progress Note ---
Internal Med Progress Note Date of Service: Apr 18, 2018. Provider Documentation: SUBJECTIVE: Seen and examined at bedside Had mild respiratory distress overnight, CXR suggestive of congestion, received lasix Remains obtunded Left elbow wound noted to be draining Will obtain wound cultures Haldol held as could be contributing to seizures Moves all extremities No family at bedside OBJECTIVE: Vital Signs-as noted below Physical Exam: General Appearance:Moderately built and nourished, no apparent distress Head: normocephalic, +small Right scalp swelling Eyes: normal inspection, EOMI, PERRL Neck: supple, Trachea midline Respiratory/Chest: Decreased breath sounds, CTA Cardiovascular: S1, S2, + murmur Abdomen/GI:Soft, Non tender, Bowel sounds present Extremities/Musculoskelatal:normal inspection, no edema Neurologic/Psych:Moves all extremities, confused, Obtunded Skin: normal color, warm, multiple bruises on extremities, Left elbow wound Lab data as noted below. ASSESSMENT & PLAN: Altered mental Status Insetting of Dementia at baseline and H/O seizures DD: 2/2 Medications, Delirium, seizures CT head; No acute intracranial abnormality. Nasal bone deformity suggesting old fractures. Mild frontal scalp swelling. CT Neck: Age-indeterminate odontoid fracture with 7.5 mm of posterior displacement of the superior fragment (displacement has increased from prior CT suggestive of 3mm displacement) Hold sedatives as able Haldol discontinued Seroquel PRN for agitation Home Seroquel held EEG:no evidence of nonconvulsive status repeat CT head: No significant change Neuro checks, Seizure/Fall precautions Appreciate Neurology Input UA normal Orthopedics consulted for Input Continue Lamictal and Keppra per Neurology Seizure Disorder Patient's Son reports that patient missed his Lamictal dose yesterday and the day prior as well Lamictal levels pending Continue Lamictal 200mg BID and 250mg QHS Ativan PRN Seizure precautions EEG:no evidence of nonconvulsive status Continue Keppra May need to be transferred for Inpatient seizure activity Appreciate Neurology Input Age-indeterminate odontoid fracture with 7.5 mm of posterior displacement of the superior fragment Prior Ct reviewed: displacement seemed to have increased from 3mm noted on CT in January 2017 Known H/O neck fracture as per Son Orthopedics consulted Left Elbow Wound-POA Likely 2/2 fall prior to admission Obtain wound cultures Start on IV Vanco empirically Will get X ray to r/o fracture H/O Recurrent Falls PT/OT eval Will need Rehab H/O CAD S/P CABG H/O ischemic cardiomyopathy Continue home meds ECHO: * Study was technically limited but adequate for the referral indication. * There is mild concentric left ventricular hypertrophy. * The left ventricular wall motion is normal. * Left ventricular ejection Fraction = 60-65%. * Aortic valve sclerosis mild, without significant aortic valvular stenosis. CXR: Mild CHF Caution with IV fluids Hypokalemia: Replace potassium Hypothyroidism TSH, Free T4:Normal Continue Levothyroxine DVT Px: Lovenox SQ Code Status: DNI/DNR: Confirmed with Patient's Son Disposition: To be determined Family: Patient's Son: Hector De La Garza requesting updates from providers Vital Signs: Date Time Temp Pulse Resp B/P (MAP) Pulse Ox O2 Delivery O2 Flow Rate FiO2 04/18/18 06:57 36.9 76 18 136/67 (90) 100 6.0 04/18/18 03:13 36.9 93 26 174/56 (95) 100 6.0 04/18/18 01:01 89 28 100 Nasal Cannula 60.0 100 04/17/18 23:59 37.0 86 18 159/79 (105) 92 04/17/18 20:39 Room Air 04/17/18 19:17 37.2 79 26 160/66 (97) 92 Room Air 04/17/18 15:20 36.3 85 26 162/76 (104) 90 Room Air 04/17/18 12:07 37.3 79 20 168/75 (106) 95 Room Air Lab Results: Results Past 24 Hours Test 04/18/18 00:59 Range/Units White Blood Count 12.86 4.8-10.8 K/uL Red Blood Count 3.48 4.7-6.1 M/uL Hemoglobin 10.7 14.0-18.0 g/dL Hematocrit 31.3 42-52 % Mean Corpuscular Volume 89.9 80-100 fL Mean Corpuscular Hemoglobin 30.7 25-34 pg Mean Corpuscular Hemoglobin Concent 34.2 32-36 g/dl Platelet Count 246 130-400 K/uL Mean Platelet Volume 9.4 7.4-10.4 fL Neutrophils (%) (Auto) 84.4 % Lymphocytes (%) (Auto) 7.5 % Monocytes (%) (Auto) 7.7 % Eosinophils (%) (Auto) 0.1 % Basophils (%) (Auto) 0.0 % Neutrophils # (Auto) 10.85 1.4-6.5 K/uL Lymphocytes # (Auto) 0.97 1.2-3.4 K/uL Monocytes # (Auto) 0.99 0.11-0.59 K/uL Eosinophils # (Auto) 0.01 0-0.5 K/uL Basophils # (Auto) 0.00 0-0.2 K/uL RDW Standard Deviation 45.3 36.4-46.3 fL RDW Coefficient of Variation 13.8 11.5-14.5 % Immature Granulocyte % (Auto) 0.3 % Immature Granulocyte # (Auto) 0.04 0.00-0.02 K/uL Arterial Blood pH 7.43 7.35-7.45 Arterial Blood Partial Pressure CO2 38 35-46 mmHg Arterial Blood Partial Pressure O2 403 80-95 mm/Hg Arterial Blood HCO3 24 19-24 mmol/L Arterial Blood Oxygen Saturation 99.7 90-95 % Arterial Blood Base Excess 0.2 -9-1.8 mEq/L Arterial Blood Gas Delivery 60 L Renny Test POS POS Sodium Level 135 136-145 mmol/L Potassium Level 3.2 3.5-5.1 mmol/L Chloride Level 103 98-107 mmol/L Carbon Dioxide Level 23 21-32 mmol/L Anion Gap 9.0 3-11 mmol/L Blood Urea Nitrogen 14 7-18 mg/dl Creatinine 0.62 0.60-1.40 mg/dl Est Creatinine Clear Calc Drug Dose 76.7 ml/min Estimated GFR () 107.8 Estimated GFR (Non- 93.0 BUN/Creatinine Ratio 22.0 10-20 Random Glucose 133 70-99 mg/dl Calcium Level 8.6 8.5-10.1 mg/dl Magnesium Level 2.1 1.8-2.4 mg/dl Ammonia 14.0 11-32 umol/L
--- NOTE | 2018-04-18 09:45 | DIAGNOSTIC IMAGING REPORT ---
L ELBOW 2 VIEWS CLINICAL HISTORY: R/O Fracture trauma. Pain. COMPARISON: None. DISCUSSION: State limited due to projections due to patient discomfort. Soft tissue edema and a potential disruption posterior to the elbow. Slight cortical irregularity radial neck positive secondary to old posttraumatic change. Mild degenerative change of all remaining joint compartments. IMPRESSION: 1. Limited study due to patient's ability to tolerate the exam. 2. Considerable soft tissue disruption and edematous change posterior to the elbow. 3. Mild degenerative change all remaining joint compartments. 4. Mild deformity radial head possibly secondary to old posttraumatic change The above report was generated using voice recognition software. It may contain grammatical, syntax or spelling errors. Electronically signed by: Justo Khan M.D. 04/18/2018 9:44 AM Dictated Date/Time: 04/18/2018 9:42 AM
[2018-04-18] MEDS: DOCUSATE SODIUM/SENNA 50/8.6MG TAB PO SCH (11:30)
--- NOTE | 2018-04-18 12:46 | Pharmacy Progress Note ---
Pharmacy Abx Dose Short Note Date of Service Apr 18, 2018. Assessment & Plan Assessment * 82 year old male starting VANCOMYCIN IV therapy for L elbow SSTI w/ drainage. He had suffered a wound to this elbow secondary to a fall prior to admit. * Nares are not colonized with MRSA * Gram stain showed mod WBCs but no organisms * WBC has been trending upward, he remains afebrile however Plan Vancomycin * Loading dose: 1250mkg (~22.4mg/kg) IV x 1 * Maintenance dose: 1000mg IV (~17.9mg/kg) Q 14 hours * Goal trough level for skin/soft tissue infxn : 10 to 20 mcg/mL - but dependent upon cultured organism * Trough level ordered for: 04/20/18 w/ maintenance dose - level may not be fully reflective of steady-state however given pt's small body habitus (BMI < 20 ) estimates of renal clearance may be less accurate * P'kinetic estimates: Vd 0.7L/kg; half-life ~11-12 hours Pharmacy will continue to follow and will adjust dose/frequency as necessary. Thank you.
--- NOTE | 2018-04-18 13:32 | PROGRESS NOTE ---
DATE: 04/18/2018 SUBJECTIVE: I am seeing Mr. De La Garza in followup. I think, he was admitted for a possible unwitnessed seizure and a change in mentation. He is now frankly delirious. Yesterday we needed to switch his anticonvulsants to Keppra as he was not taking reliably by mouth. He has taken 1 dose of Lamictal by mouth since yesterday, he was sedated overnight. His left elbow has been swollen. Elbow x-ray shows considerable soft tissue disruption and edematous change posterior to the elbow. The patient's white count was elevated and he was placed on an antibiotic for coverage of soft tissue infection. He is sleepy, occasionally vocalizes, no seizure activity is noted. He is modestly tremulous, appears delirious. OBJECTIVE: VITAL SIGNS: 36.9, 82, 20, 154/76. NEUROLOGIC: He moves all 4 extremities symmetrically and his reflexes are nonpathologic. IMPRESSION AND PLAN: This patient with a known sz disorder may have had a seizure at home. It is unclear, but then was admitted and became delirious. Unclear if that is medication related or related to a brewing infection of his left elbow. We switched him to Keppra 1000 twice a day from lamictal as he has not been able to reliably take by mouth. . If we see any seizure activity, we can can bump that up to 1500 mg twice a day. We will try to continue to give the Lamictal regularly orally if he is taking orally. We would need to have a low index of suspicion for EEG monitoring if the patient's mentation was not improving with hydration, IV antibiotics. Ultimately, we will have to determine whether or not he may need a low dose of Keppra in addition to the Lamictal dosing that he was on. We will follow with you. MARAD
[2018-04-18] MEDS ORDERED: NSS IV ONE (16:45)
[2018-04-18] MEDS ORDERED: KCL IV ONE (16:45)
[2018-04-18] MEDS: ATORVASTATIN 10 MG TAB PO SCH (20:53)
[2018-04-19] MEDS: VANCOMYCIN IV 1,000 MG in SODIUM CHLORIDE 0.9% 250ML 250 ML IV SCH ×2 (00:44→13:35)
[2018-04-19 04:10] VITALS: BP 183/91; PULSE 97; TEMP 36.8; O2SAT 95
[2018-04-19] MEDS: LEVOTHYROXINE 75 MCG TAB PO SCH (05:05)
[2018-04-19 07:27] LABS: HEMATOCRIT 37.5 % (42-52); HEMOGLOBIN 12.5 g/dL (14.0-18.0); MEAN CELL VOLUME 90.1 fL (80-100); MEAN CORPUSCULAR HGB CONC 33.3 g/dl (32-36); PLATELET COUNT 330 K/uL (130-400); RED CELL DISTRIBUTION WIDTH SD 45.7 fL (36.4-46.3); WHITE BLOOD COUNT 11.51 K/uL (4.8-10.8)
[2018-04-19 07:41] VITALS: BP 179/74; PULSE 98; TEMP 37; O2SAT 93
[2018-04-19] MEDS: ENOXAPARIN 30 MG/0.3 ML SYR SC SCH (07:41)
[2018-04-19] MEDS: LEVETIRACETAM IV 1,000 MG in DEXTROSE 5% 100ML 100 ML IV SCH ×2 (07:45→21:01)
[2018-04-19 08:02] LABS: CREATININE 0.58 mg/dl (0.60-1.40); POTASSIUM 3.7 mmol/L (3.5-5.1)
[2018-04-19] MEDS: MULTIVITAMIN TAB PO SCH (09:00)
[2018-04-19] MEDS: SERTRALINE HCL 50 MG TAB PO SCH (09:00)
[2018-04-19] MEDS: ASPIRIN 81 MG ECTAB PO SCH (09:00)
[2018-04-19] MEDS: METOPROLOL TARTRATE 25 MG TAB PO SCH (09:00)
--- NOTE | 2018-04-19 09:28 | Clinical Documentation Query ---
CLINICAL DOCUMENTATION QUERY QUERY 1 OF 2 82 yo male admitted with seizures and altered mental status. Patient has known dementia and is uncooperative with care. Patient documented as suffering from delirium. In your clinical opinion is this patient being managed for: ( X ) Dementia with behavioral disturbance ( ) Not Agree ( ) Other explanation of clinical findings (No explanation is considered a No Response) ( ) Unable to determine ( ) Need to Discuss (Phone CDS or qliq) (No discussion is considered a No Response) The medical record reflects the following clinical findings, treatment, and risk factors. Clinical Indicators: As above Treatment: Neurology consult, CT head, MRI brain, EEG, use of restraints Risk Factors: Age, dementia with delirium, seizure d/o QUERY 2 OF 2 Echo shows mild concentric left ventricular hypertrophy, EF = 60-65%. CXR shows mild congestive heart failure. Patient has a history of systolic CHF with EF = 30%. In your clinical opinion is this patient being managed for: ( ) Acute on chronic diastolic and systolic CHF ( ) Not Agree ( ) Other explanation of clinical findings (No explanation is considered a No Response) ( X ) Unable to determine ( ) Need to Discuss (Phone CDS or qliq) (No discussion is considered a No Response) The medical record reflects the following clinical findings, treatment, and risk factors. Clinical Indicators: As above Treatment: Lasix 40mg IV, mild hydration, I&O, echo Risk Factors: Age, CAD, hx ischemic cardiomyopathy Please clarify and document your clinical opinion in the progress notes and discharge summary. Terms such as "probable", "suspected", "likely", "questionable", "possible", or "still to be ruled out" are acceptable. IF IN AGREEMENT, YOU MUST DOCUMENT ABOVE DIAGNOSTIC STATEMENT IN DAILY PROGRESS NOTES AND DISCHARGE SUMMARY. This document is not part of the patient's record. Thank You, Macie Craig RN, MSN [phone]
[2018-04-19] MEDS: MoRPHine SULFATE 2 MG/ML CARP IV PRN ×2 (10:24→14:29)
[2018-04-19] MEDS: DOCUSATE SODIUM/SENNA 50/8.6MG TAB PO SCH (11:20)
[2018-04-19 11:43] VITALS: BP 138/76; PULSE 98; TEMP 36.8; O2SAT 95
--- NOTE | 2018-04-19 12:10 | Progress Note ---
Internal Med Progress Note Date of Service: Apr 19, 2018. Provider Documentation: SUBJECTIVE: Seen and examined at bedside Mental status seems to be improving Follows commands appropriately Complains of neck pain Wound cultures growing Staph Able to moves all extremities Family at bedside OBJECTIVE: Vital Signs-as noted below Physical Exam: General Appearance:Moderately built and nourished, no apparent distress Head: normocephalic, +small Right scalp swelling Eyes: normal inspection, EOMI, PERRL Neck: supple, Trachea midline Respiratory/Chest: Decreased breath sounds, CTA Cardiovascular: S1, S2, + murmur Abdomen/GI:Soft, Non tender, Bowel sounds present Extremities/Musculoskelatal:normal inspection, no edema Neurologic/Psych:Moves all extremities, confused Skin: normal color, warm, multiple bruises on extremities, Left elbow wound Lab data as noted below. ASSESSMENT & PLAN: Altered mental Status Insetting of Dementia at baseline and H/O seizures DD: 2/2 Medications, Delirium, seizures CT head; No acute intracranial abnormality. Nasal bone deformity suggesting old fractures. Mild frontal scalp swelling. CT Neck: Age-indeterminate odontoid fracture with 7.5 mm of posterior displacement of the superior fragment (displacement has increased from prior CT suggestive of 3mm displacement) Hold sedatives as able Haldol discontinued Seroquel PRN for agitation Home Seroquel held EEG:no evidence of nonconvulsive status repeat CT head: No significant change Neuro checks, Seizure/Fall precautions Appreciate Neurology Input UA normal Orthopedics consulted for Input: No official documentation yet Continue Lamictal and Keppra per Neurology Mental status seemed to be slowly improving Seizure Disorder Patient's Son reports that patient missed his Lamictal dose yesterday and the day prior as well Lamictal levels pending Continue Lamictal 200mg BID and 250mg QHS Ativan PRN Seizure precautions EEG:no evidence of nonconvulsive status Continue Keppra Appreciate Neurology Input Age-indeterminate odontoid fracture with 7.5 mm of posterior displacement of the superior fragment Prior Ct reviewed: displacement seemed to have increased from 3mm noted on CT in January 2017 Known H/O neck fracture as per Son Orthopedics consulted for Input Left Elbow Wound-POA Likely 2/2 fall prior to admission wound culture: Staph Continue IV Vanco Elbow X ray: Considerable soft tissue disruption and edematous change posterior to the elbow. H/O Recurrent Falls PT/OT eval as able H/O CAD S/P CABG H/O ischemic cardiomyopathy Continue home meds ECHO: * Study was technically limited but adequate for the referral indication. * There is mild concentric left ventricular hypertrophy. * The left ventricular wall motion is normal. * Left ventricular ejection Fraction = 60-65%. * Aortic valve sclerosis mild, without significant aortic valvular stenosis. CXR: Mild CHF Caution with IV fluids Hypokalemia: monitor Hypothyroidism TSH, Free T4:Normal Continue Levothyroxine DVT Px: Lovenox SQ Code Status: DNI/DNR: Confirmed with Patient's Son Disposition: To be determined Family: Patient's Son: Hector De La Garza requesting updates from providers [phone] Vital Signs: Date Time Temp Pulse Resp B/P (MAP) Pulse Ox O2 Delivery O2 Flow Rate FiO2 04/19/18 11:43 36.8 98 22 138/76 (96) 95 Room Air 04/19/18 08:00 Room Air 04/19/18 07:41 37.0 98 24 179/74 (109) 93 Room Air 04/19/18 04:10 36.8 97 19 183/91 (121) 95 Room Air 04/18/18 23:43 36.8 92 20 158/87 (110) 94 04/18/18 20:30 Room Air 04/18/18 19:04 36.7 87 18 150/64 (92) 95 04/18/18 15:12 37.0 94 18 155/68 (97) 94 Lab Results: Results Past 24 Hours Test 04/19/18 06:43 Range/Units White Blood Count 11.51 4.8-10.8 K/uL Red Blood Count 4.16 4.7-6.1 M/uL Hemoglobin 12.5 14.0-18.0 g/dL Hematocrit 37.5 42-52 % Mean Corpuscular Volume 90.1 80-100 fL Mean Corpuscular Hemoglobin 30.0 25-34 pg Mean Corpuscular Hemoglobin Concent 33.3 32-36 g/dl RDW Standard Deviation 45.7 36.4-46.3 fL RDW Coefficient of Variation 14.0 11.5-14.5 % Platelet Count 330 130-400 K/uL Mean Platelet Volume 10.0 7.4-10.4 fL Sodium Level 137 136-145 mmol/L Potassium Level 3.7 3.5-5.1 mmol/L Chloride Level 102 98-107 mmol/L Carbon Dioxide Level 24 21-32 mmol/L Anion Gap 11.0 3-11 mmol/L Blood Urea Nitrogen 15 7-18 mg/dl Creatinine 0.58 0.60-1.40 mg/dl Est Creatinine Clear Calc Drug Dose 79.5 ml/min Estimated GFR () 110.8 Estimated GFR (Non- 95.6 BUN/Creatinine Ratio 26.7 10-20 Random Glucose 97 70-99 mg/dl Calcium Level 9.0 8.5-10.1 mg/dl Chemistry Specimen Hemolysis
[2018-04-19] MEDS ORDERED: KCL IV ONE (12:30)
[2018-04-19] MEDS ORDERED: NSS IV ONE (12:30)
[2018-04-19 15:29] VITALS: BP 161/70; PULSE 92; TEMP 36.8; O2SAT 92
--- NOTE | 2018-04-19 17:24 | Neurology Progress Notes ---
Neurology Progress Note Date of Service Apr 19, 2018. Mainor Sims is a 82 year old male who has a H dementia, seizure disorder, stroke, delirium, LV mural thrombus, odontoid fracture in 2011 non surgical, [place]. He present to [facility] on 04/14/2018 for episode of emesis and confusion. He had 2 falls over the past week, and 2 episodes of vomiting. His son found him in a chair incontinent of urine which is a chronic issue and took him to the ED. He was found stable and discharged to [facility] for inpatient rehab. He was found on the floor at and was sent to the ED for evaluation. His son feels it was likely a seizure. His lamictal level at [facility] was 18.9. He lives independently. Today he states he is doing fine. denies CP, SOB, abdominal pain, one sided weakness, numbness tingling N, V. Objective Date Time Temp Pulse Resp B/P (MAP) Pulse Ox O2 Delivery O2 Flow Rate FiO2 04/19/18 15:29 36.8 92 19 161/70 (100) 92 Room Air 04/19/18 11:43 36.8 98 22 138/76 (96) 95 Room Air 04/19/18 08:00 Room Air 04/19/18 07:41 37.0 98 24 179/74 (109) 93 Room Air 04/19/18 04:10 36.8 97 19 183/91 (121) 95 Room Air 04/18/18 23:43 36.8 92 20 158/87 (110) 94 04/18/18 20:30 Room Air 04/18/18 19:04 36.7 87 18 150/64 (92) 95 Last 24 Hours Test 04/19/18 06:43 White Blood Count 11.51 K/uL Red Blood Count 4.16 M/uL Hemoglobin 12.5 g/dL Hematocrit 37.5 % Mean Corpuscular Volume 90.1 fL Mean Corpuscular Hemoglobin 30.0 pg Mean Corpuscular Hemoglobin Concent 33.3 g/dl RDW Standard Deviation 45.7 fL RDW Coefficient of Variation 14.0 % Platelet Count 330 K/uL Mean Platelet Volume 10.0 fL Sodium Level 137 mmol/L Potassium Level 3.7 mmol/L Chloride Level 102 mmol/L Carbon Dioxide Level 24 mmol/L Anion Gap 11.0 mmol/L Blood Urea Nitrogen 15 mg/dl Creatinine 0.58 mg/dl Est Creatinine Clear Calc Drug Dose 79.5 ml/min Estimated GFR () 110.8 Estimated GFR (Non- 95.6 BUN/Creatinine Ratio 26.7 Random Glucose 97 mg/dl Calcium Level 9.0 mg/dl Chemistry Specimen Hemolysis Imaging: no new imaging Exam: Gen: alert NAD knows he is at hospital but unsure why lungs CTA CV RRR hand inspector eyeglass frames, biceps triceps 5/5 bilaterally hip flex patellar/planter flex ext bilaterally 5/5 finger to nose no bi pass no pronator drift no family in room but he states his son was there earlier today Current Inpatient Medications Medications (Trade) Dose Ordered Sig/Renzo Route Start Time Stop Time Status Last Admin Dose Admin Lamotrigine (Lamictal Tab) 250 mg HS PO 04/16/18 21:00 05/16/18 20:59 04/17/18 21:12 250 MG Enoxaparin Sodium (Lovenox Inj) 30 mg Q24H SC 04/16/18 07:00 05/16/18 06:59 04/19/18 07:41 30 MG Acetaminophen (Tylenol Tab) 650 mg Q4H PRN PO 04/16/18 04:45 05/16/18 04:44 Nitroglycerin (Nitrostat Tab) 0.4 mg UD PRN SL 04/16/18 04:45 05/16/18 04:44 Lorazepam 1 mg/ Syringe 1 ml @ 0.5 mls/min Q5M PRN IV 04/16/18 04:45 05/16/18 04:44 Aspirin (Ecotrin Tab) 81 mg QAM PO 04/16/18 09:00 05/16/18 08:59 Atorvastatin Calcium (Lipitor Tab) 10 mg HS PO 04/16/18 21:00 05/16/18 20:59 04/17/18 21:11 10 MG Docusate Sodium (coLACE CAP) 100 mg BID PRN PO 04/16/18 04:45 05/16/18 04:44 Lamotrigine (Lamictal Tab) 200 mg BID17 PO 04/16/18 09:00 05/16/18 08:59 04/16/18 17:51 200 MG Metoprolol Tartrate (Lopressor Tab) 12.5 mg BID PO 04/16/18 09:00 05/16/18 08:59 04/17/18 21:11 12.5 MG Multivitamins (Multivitamin Tab) 1 tab QAM PO 04/16/18 09:00 05/16/18 08:59 Quetiapine Fumarate (seroQUEL TAB) 25 mg HS PO 04/16/18 21:00 05/16/18 20:59 Future Hold 04/16/18 20:49 25 MG Senna/Docusate Sodium (Senokot S Tab) 1 tab QDL PO 04/16/18 11:30 05/16/18 11:29 Sertraline HCl (Zoloft Tab) 25 mg QAM PO 04/16/18 09:00 05/16/18 08:59 Polyethylene (Miralax Powder Packet) 17 gm QDL PRN PO 04/16/18 04:45 05/16/18 04:44 Oxycodone/ Acetaminophen (Percocet 5-325mg Tab) 1 tab Q6H PRN PO 04/16/18 04:45 04/30/18 04:44 04/16/18 17:54 1 TAB Prochlorperazine Edisylate 5 mg/ Syringe 5 ml @ 5 mls/min Q6H PRN IV 04/16/18 04:45 05/16/18 04:44 Morphine Sulfate (MoRPHine SULFATE INJ) 2 mg Q4H PRN IV 04/16/18 04:45 04/30/18 04:44 04/19/18 14:29 2 MG Miscellaneous (Iv Fluids Completed) 1 ea PRN PRN N/A 04/16/18 05:15 04/16/19 05:14 Levothyroxine Sodium (Synthroid Tab) 75 mcg DAILYBB PO 04/16/18 06:30 05/16/18 06:29 Levetiracetam 1000 mg/Dextrose 110 ml @ 440 mls/hr BID IV 04/17/18 11:30 05/17/18 11:29 04/19/18 07:45 440 MLS/HR Albuterol/ Ipratropium (Duoneb) 3 ml Q2H PRN INH 04/18/18 00:30 05/18/18 00:29 Olanzapine (Zyprexa Inj) 2.5 mg Q4H PRN IM 04/18/18 01:00 9/4/18 00:59 Vancomycin HCl (Consult) 1 ea UD N/A 04/18/18 09:20 05/18/18 09:19 Vancomycin HCl 1000 mg/Sodium Chloride 270 ml @ 125 mls/hr Q14H IV 04/19/18 00:00 04/29/18 00:00 04/19/18 13:35 125 MLS/HR Potassium Chloride/Sodium Chloride 250 ml @ 50 mls/hr Q5H ONCE IV 04/19/18 12:30 04/19/18 17:29 04/19/18 13:33 50 MLS/HR Impression 82 year old with history of dementia, seizure disorder, multiple falls Plan 1. dementia and some what delusion 2. lamictal level pending 3. baseline lives alone with help with meals and meds -son 4. cleared neck- [place] j removed 5. CT head no acute findings 6. EEG pending read 7. MRI brain would be helpful to r/o organic causes of MS change 8. RPR, folate, B12, thiamine levels done 9. TTE- no ASD 10. speech swallowing study to advance diet patient is still 11. continue Keppra until able to take oral I have seen and discussed above patient with Dr Selam Wyman, neurology Pt more alert today, failed swallow, no sz. Pt is sleepy but arousable, language unremarkable. Imp delirium superimposed on dementia. REason for dysphagia unclear, possibly related to delirium. I think we should pursue MRI brain at this point given new dysphagia. On IV Keppra , oral lamictal on hold given dysphagia. No sz. CAROLIN Wyman MD
[2018-04-19 19:33] VITALS: BP 165/83; PULSE 92; TEMP 36.8; O2SAT 92
[2018-04-19] MEDS ORDERED: METOPROLOL TARTRATE 1 MG/ML VIAL IV ONE (19:52)
[2018-04-19] MEDS ORDERED: DEXTROSE 5% 1000ML 1,000 ML IV SCH (20:00)
[2018-04-19] MEDS: ATORVASTATIN 10 MG TAB PO SCH (21:00)
[2018-04-19 23:35] VITALS: BP 173/82; PULSE 85; TEMP 36.6; O2SAT 96
[2018-04-20] MEDS: METOPROLOL TARTRATE 1 MG/ML VIAL IV. SCH ×2 (00:13→05:40)
[2018-04-20 03:23] LABS: BASO % 0.1 %; BASO ABS # 0.01 K/uL (0-0.2); EOS % 1.7 %; EOS ABS # 0.17 K/uL (0-0.5); HEMATOCRIT 33.9 % (42-52); HEMOGLOBIN 11.4 g/dL (14.0-18.0); IG# 0.05 K/uL (0.00-0.02); LYMPH % 13.5 %; LYMPH ABS # 1.36 K/uL (1.2-3.4); MEAN CELL VOLUME 88.5 fL (80-100); MEAN CORPUSCULAR HEMOGLOBIN 29.8 pg (25-34); MEAN CORPUSCULAR HGB CONC 33.6 g/dl (32-36); MEAN PLATELET VOLUME 9.1 fL (7.4-10.4); MONO % 9.1 %; MONO ABS # 0.92 K/uL (0.11-0.59); NEUT % 75.1 %; PLATELET COUNT 308 K/uL (130-400); RED CELL DISTRIBUTION WIDTH CV 13.8 % (11.5-14.5); RED CELL DISTRIBUTION WIDTH SD 44.6 fL (36.4-46.3); WHITE BLOOD COUNT 10.11 K/uL (4.8-10.8)
[2018-04-20] MEDS ORDERED: VANCOMYCIN TROUGH ONE (03:30)
[2018-04-20 03:46] LABS: CALCIUM 8.6 mg/dl (8.5-10.1); CREATININE 0.45 mg/dl (0.60-1.40)
[2018-04-20 03:47] VITALS: BP 171/75; PULSE 86; TEMP 36.5; O2SAT 96
[2018-04-20] MEDS: VANCOMYCIN IV 1,000 MG in SODIUM CHLORIDE 0.9% 250ML 250 ML IV SCH (04:17)
[2018-04-20 05:33] VITALS: BP_SYST 120; BP_SYST 126; BP_DIAS 60; BP_DIAS 68; PULSE 91; PULSE 95
[2018-04-20] MEDS: POTASSIUM CHLR 10 MEQ / WTR 100 ML IV SCH ×5 (05:38→10:20)
[2018-04-20 07:02] VITALS: BP 138/78; PULSE 92; TEMP 36.6; O2SAT 97
[2018-04-20] MEDS: ENOXAPARIN 30 MG/0.3 ML SYR SC SCH (07:47)
[2018-04-20] MEDS: MULTIVITAMIN TAB PO SCH (07:48)
[2018-04-20] MEDS: ASPIRIN 81 MG ECTAB PO SCH (07:48)
[2018-04-20] MEDS: SERTRALINE HCL 50 MG TAB PO SCH (07:48)
[2018-04-20] MEDS: LEVETIRACETAM IV 1,000 MG in DEXTROSE 5% 100ML 100 ML IV SCH (08:32)
[2018-04-20] MEDS ORDERED: LEVOTHYROXINE SODIUM INJ 37.5 MCG in SYRINGE 0 ML IV SCH (09:00)
[2018-04-20] MEDS: DOCUSATE SODIUM/SENNA 50/8.6MG TAB PO SCH (10:20)
[2018-04-20 11:30] VITALS: BP 109/75; PULSE 99; TEMP 37.1; O2SAT 96
--- NOTE | 2018-04-20 11:44 | Pharmacy Progress Note ---
Pharmacy Abx Dose Short Note Date of Service Apr 20, 2018. Assessment & Plan Assessment 82 year old male receiving vancomycin for treatment of SSTI (growing MSSA and CoNS). Level this morning was subtherapeutic. Will move up next dose to help account for this. Day # 3 of antimicrobial therapy. Plan Vancomycin * Trough level of 7.7 mcg/mL is subtherapeutic. * Change to 1000 mg IV every 10 hours * Goal trough level : 15 to 20 mcg/mL * Trough or random level ordered for: 04/21/18 @ 9333 Pharmacy will continue to follow and will adjust dose/frequency as necessary. Thank you.
[2018-04-20] MEDS ORDERED: VANCOMYCIN IV 1,000 MG in SODIUM CHLORIDE 0.9% 250ML 250 ML IV SCH (12:00)
[2018-04-20] MEDS ORDERED: METOPROLOL TARTRATE 25 MG TAB PO ONE (12:45)
--- NOTE | 2018-04-20 15:25 | Neurology Progress Notes ---
Neurology Progress Note Date of Service Apr 20, 2018. Mainor Sims is a 82 year old male who has a [facility] dementia, seizure disorder, stroke, delirium, LV mural thrombus, odontoid fracture in 2011 non surgical, [place]. He present to [facility] on 04/14/2018 for episode of emesis and confusion. He had 2 falls over the past week, and 2 episodes of vomiting. His son found him in a chair incontinent of urine which is a chronic issue and took him to the ED. He was found stable and discharged to [facility] for inpatient rehab. He was found on the floor at and was sent to the ED for evaluation. His son feels it was likely a seizure. His lamictal level at [facility] was 18.9. He lives independently. He is more confused today stating he doesn't know why they have him in this room when his room is over there pointing to the left. denies CP, SOB, abdominal pain, one sided weakness, numbness tingling N, V. Objective Date Time Temp Pulse Resp B/P (MAP) Pulse Ox O2 Delivery O2 Flow Rate FiO2 04/20/18 11:30 37.1 99 20 109/75 (86) 96 Room Air 04/20/18 08:00 Room Air 04/20/18 07:02 36.6 92 18 138/78 (98) 97 Room Air 04/20/18 05:40 95 120/68 04/20/18 05:33 91 126/60 (82) 95 120/68 (85) 04/20/18 03:47 36.5 86 18 171/75 (107) 96 Room Air 04/20/18 00:13 85 173/82 04/19/18 23:35 36.6 85 19 173/82 (112) 96 Room Air 04/19/18 21:01 92 165/83 04/19/18 20:00 Room Air 04/19/18 19:33 36.8 92 20 165/83 (110) 92 Room Air 04/19/18 15:29 36.8 92 19 161/70 (100) 92 Room Air Last 24 Hours Test 04/20/18 03:14 White Blood Count 10.11 K/uL Red Blood Count 3.83 M/uL Hemoglobin 11.4 g/dL Hematocrit 33.9 % Mean Corpuscular Volume 88.5 fL Mean Corpuscular Hemoglobin 29.8 pg Mean Corpuscular Hemoglobin Concent 33.6 g/dl Platelet Count 308 K/uL Mean Platelet Volume 9.1 fL Neutrophils (%) (Auto) 75.1 % Lymphocytes (%) (Auto) 13.5 % Monocytes (%) (Auto) 9.1 % Eosinophils (%) (Auto) 1.7 % Basophils (%) (Auto) 0.1 % Neutrophils # (Auto) 7.60 K/uL Lymphocytes # (Auto) 1.36 K/uL Monocytes # (Auto) 0.92 K/uL Eosinophils # (Auto) 0.17 K/uL Basophils # (Auto) 0.01 K/uL RDW Standard Deviation 44.6 fL RDW Coefficient of Variation 13.8 % Immature Granulocyte % (Auto) 0.5 % Immature Granulocyte # (Auto) 0.05 K/uL Sodium Level 138 mmol/L Potassium Level 3.0 mmol/L Chloride Level 105 mmol/L Carbon Dioxide Level 23 mmol/L Anion Gap 10.0 mmol/L Blood Urea Nitrogen 15 mg/dl Creatinine 0.45 mg/dl Est Creatinine Clear Calc Drug Dose 102.5 ml/min Estimated GFR () 123.0 Estimated GFR (Non- 106.1 BUN/Creatinine Ratio 33.5 Random Glucose 119 mg/dl Calcium Level 8.6 mg/dl Vancomycin Level Trough 7.7 mcg/ml Imaging: no new imaging Exam: Gen: alert oriented only to self PERRL/EOM lungs regular respiration effort CV RRR strength biceps triceps hand foot doctor 5/5 hip flex 5/5 sensation intact to light touch Current Inpatient Medications Medications (Trade) Dose Ordered Sig/Renzo Route Start Time Stop Time Status Last Admin Dose Admin Lamotrigine (Lamictal Tab) 250 mg HS PO 04/16/18 21:00 05/16/18 20:59 04/17/18 21:12 250 MG Enoxaparin Sodium (Lovenox Inj) 30 mg Q24H SC 04/16/18 07:00 05/16/18 06:59 04/20/18 07:47 30 MG Acetaminophen (Tylenol Tab) 650 mg Q4H PRN PO 04/16/18 04:45 05/16/18 04:44 Nitroglycerin (Nitrostat Tab) 0.4 mg UD PRN SL 04/16/18 04:45 05/16/18 04:44 Lorazepam 1 mg/ Syringe 1 ml @ 0.5 mls/min Q5M PRN IV 04/16/18 04:45 05/16/18 04:44 Aspirin (Ecotrin Tab) 81 mg QAM PO 04/16/18 09:00 05/16/18 08:59 Atorvastatin Calcium (Lipitor Tab) 10 mg HS PO 04/16/18 21:00 05/16/18 20:59 04/17/18 21:11 10 MG Docusate Sodium (coLACE CAP) 100 mg BID PRN PO 04/16/18 04:45 05/16/18 04:44 Lamotrigine (Lamictal Tab) 200 mg BID17 PO 04/16/18 09:00 05/16/18 08:59 04/16/18 17:51 200 MG Metoprolol Tartrate (Lopressor Tab) 12.5 mg BID PO 04/16/18 09:00 05/16/18 08:59 Future Hold 04/17/18 21:11 12.5 MG Multivitamins (Multivitamin Tab) 1 tab QAM PO 04/16/18 09:00 05/16/18 08:59 Quetiapine Fumarate (seroQUEL TAB) 25 mg HS PO 04/16/18 21:00 05/16/18 20:59 Future Hold 04/16/18 20:49 25 MG Senna/Docusate Sodium (Senokot S Tab) 1 tab QDL PO 04/16/18 11:30 05/16/18 11:29 Sertraline HCl (Zoloft Tab) 25 mg QAM PO 04/16/18 09:00 05/16/18 08:59 Polyethylene (Miralax Powder Packet) 17 gm QDL PRN PO 04/16/18 04:45 05/16/18 04:44 Oxycodone/ Acetaminophen (Percocet 5-325mg Tab) 1 tab Q6H PRN PO 04/16/18 04:45 04/30/18 04:44 04/16/18 17:54 1 TAB Prochlorperazine Edisylate 5 mg/ Syringe 5 ml @ 5 mls/min Q6H PRN IV 04/16/18 04:45 05/16/18 04:44 Morphine Sulfate (MoRPHine SULFATE INJ) 2 mg Q4H PRN IV 04/16/18 04:45 04/30/18 04:44 04/19/18 14:29 2 MG Miscellaneous (Iv Fluids Completed) 1 ea PRN PRN N/A 04/16/18 05:15 04/16/19 05:14 Levothyroxine Sodium (Synthroid Tab) 75 mcg DAILYBB PO 04/16/18 06:30 05/16/18 06:29 Future Hold Albuterol/ Ipratropium (Duoneb) 3 ml Q2H PRN INH 04/18/18 00:30 05/18/18 00:29 Olanzapine (Zyprexa Inj) 2.5 mg Q4H PRN IM 04/18/18 01:00 05/18/18 00:59 Vancomycin HCl (Consult) 1 ea UD N/A 04/18/18 09:20 05/18/18 09:19 Levothyroxine Sodium 37.5 mcg/ Syringe 1.875 ml @ 2 mls/min DAILY@09 IV 04/20/18 09:00 05/20/18 08:59 04/20/18 08:32 2 MLS/MIN Vancomycin HCl 1000 mg/Sodium Chloride 270 ml @ 125 mls/hr Q10H IV 04/20/18 12:00 04/28/18 23:59 04/20/18 12:59 125 MLS/HR Levetiracetam (Keppra Tab) 1,000 mg BID PO 04/20/18 21:00 05/20/18 20:59 Metoprolol Tartrate (Lopressor Tab) 12.5 mg BID PO 04/20/18 21:00 05/20/18 20:59 Impression 82 year old with history of dementia, seizure disorder, multiple falls Plan 1. dementia and some what delusion 2. lamictal level pending 3. baseline lives alone with help with meals and meds -son- son is looking at SNF placement 4. cleared neck- [facility] j removed 5. CT head no acute findings 6. EEG pending read 7. MRI brain would be helpful to r/o organic causes of MS change- ordered and will attempt later tonight-he has agreed to have imaging 8. RPR, folate, B12- WNL, thiamine -still pending 9. TTE- no ASD 10. speech swallowing study to advance diet is now taking orals 11. currently on oral meds taking Keppra 1000 mg BID and Lamictal 200 mg am and 450 mg pm I have seen and discussed above patient with Dr Selam Wyman, neurology Pt seen today, awake, alert, modestly delusional although not agitated. No sz noted. Continue keppra and lamictal, will likely do so for at least 5 d. I may then decrease keppra gradually to 250 mg twice a day. CAROLIN Wyman MD
[2018-04-20 15:55] VITALS: BP 146/81; PULSE 84; TEMP 37.2; O2SAT 97
--- NOTE | 2018-04-20 16:51 | Progress Note ---
Internal Med Progress Note Date of Service: Apr 20, 2018. Provider Documentation: SUBJECTIVE: remains confused does not know where he is at no Sz episode pt was on chair earlier , slid down to the floor in attempt to get up No trauma Ordered for a one-to-one observation low bed, bed and chair alarm OBJECTIVE: Vital Signs-as noted below Exam: General-chronically ill-appearing elderly male, no apparent sign of distress Eyes-sclera nonicteric ENT-moist oral mucosa Neck-no JVD, no carotid bruit, trachea midline, no thyroid Lungs-clear to auscultate Heart-S1 S2 Abdomen-soft nontender Extremities-multiple bruises on extremities, Left elbow wound Neuro-baseline dementia , no focal neurological deficits Lab data as noted below. ASSESSMENT & PLAN: CHANGE MENTAL STATUS/METABOLIC ENCEPHALOPATHY -Has underlying dementia -Presented with worsening confusion -CT head without contrast: No acute intracranial abnormality. Nasal bone deformity suggesting old fracture. Mild frontal scalp swelling. -CT neck: Age indeterminate odontoid fracture with 7.5 mm of posterior displacement of the superior fragment (displacement has increased from prior CT suggestive of 3 mm displacement) -EEG of brain: No evidence of seizure activity -Repeat CT head without contrast: Shows no significant change -Appreciate input from neurology -Mental status improved slowly to baseline Continue to observe fall precaution -Frequent reorientation to limit sundowning/delirium -Avoid benzodiazepine/anti-cholinergic drugs FRACTURES OF CERVICAL 2 VERTEBRAE/ODONTOID FRACTURE NOTED IN CT NECK -Orthopedic consulted HISTORY OF SEIZURE DISORDER -Appreciate neurology evaluation -Patient is continued with Keppra -P.o. Lamictal Seizure precautions INFECTED LEFT ELBOW WOUND (present on admission) -Left elbow wound secondary to fall -X-ray of elbow: Considerable soft tissue disruption and edematous change posterior to the elbow -Wound culture growing Staphylococcus-MSSA was treated with IV vancomycin -changed to PO Doxycycline needs total 7 days tx HISTORY OF CORONARY ARTERY DISEASE STATUS POST CABG -No active issue, no symptom of angina -Echo: Mild concentric left ventricular hypertrophy. -Normal left ventricular wall motion -Left ventricular ejection fraction 60-65 -Aortic valve sclerosis mild, without significant aortic valvular stenosis HYPOTHYROIDISM TSH, free T4: Normal Continue levothyroxine CODE STATUS: DNR/DNI DVT PROPHYLAXIS Subcu heparin DISPOSITION To be determined PT OT evaluation Social service consulted for discharge home Vital Signs: Date Time Temp Pulse Resp B/P (MAP) Pulse Ox O2 Delivery O2 Flow Rate FiO2 8/8/18 14:58 36.8 75 20 156/85 (108) 93 Room Air 04/21/18 07:55 Room Air 04/21/18 06:53 36.4 76 16 132/67 (88) 98 Room Air 04/20/18 23:45 Room Air 04/20/18 21:33 88 157/68 (97) Lab Results: Results Past 24 Hours Test 04/21/18 06:54 04/21/18 08:09 04/21/18 12:19 Range/Units Creatinine 0.57 0.60-1.40 mg/dl Est Creatinine Clear Calc Drug Dose 82.8 ml/min Estimated GFR () 111.6 Estimated GFR (Non- 96.3 Bedside Glucose 115 95 70-99 mg/dl
[2018-04-20] MEDS ORDERED: BISACODYL 10 MG SUPP PR PRN (17:30)
[2018-04-20] MEDS ORDERED: MAGNESIUM HYDROXIDE SUSP 30 ML UDC PO PRN (17:30)
[2018-04-20 21:33] VITALS: BP 157/68; PULSE 88
[2018-04-20] MEDS: METOPROLOL TARTRATE 25 MG TAB PO SCH (21:34)
[2018-04-20] MEDS: ATORVASTATIN 10 MG TAB PO SCH (21:36)
[2018-04-20] MEDS: DOXYCYCLINE HYCLATE 100 MG CAP PO SCH (21:36)
[2018-04-20] MEDS: LEVETIRACETAM 500 MG TAB PO SCH (21:38)
[2018-04-21] MEDS: ENOXAPARIN 30 MG/0.3 ML SYR SC SCH (05:09)
[2018-04-21] MEDS ORDERED: LEVOTHYROXINE 75 MCG TAB PO SCH ×2 (06:00)
[2018-04-21 06:53] VITALS: BP 132/67; PULSE 76; TEMP 36.4; O2SAT 98
--- NOTE | 2018-04-21 07:08 | DIAGNOSTIC IMAGING REPORT ---
MRI OF THE CERVICAL SPINE WITHOUT IV CONTRAST CLINICAL HISTORY: Neck injury. Abnormal CT scan. COMPARISON STUDY: CT scan of the cervical spine dated 04/16/2018. TECHNIQUE: MRI of the cervical spine was initiated. The patient underwent the localization sequences and became combative/noncooperative. The examination was discontinued and no diagnostic sequences were obtained. The patient declined further imaging. FINDINGS: The examination is nondiagnostic. IMPRESSION: Nondiagnostic examination. Only the localizer sequences were obtained and the patient discontinued the examination. Electronically signed by: Yo Murphy M.D. 04/21/2018 7:06 AM Dictated Date/Time: 04/21/2018 7:04 AM
[2018-04-21 07:49] LABS: CREATININE 0.57 mg/dl (0.60-1.40)
[2018-04-21] MEDS: SERTRALINE HCL 50 MG TAB PO SCH (08:42)
[2018-04-21] MEDS: METOPROLOL TARTRATE 25 MG TAB PO SCH (08:42)
[2018-04-21] MEDS: MULTIVITAMIN TAB PO SCH (08:42)
[2018-04-21] MEDS: DOXYCYCLINE HYCLATE 100 MG CAP PO SCH ×2 (08:42→22:11)
[2018-04-21] MEDS: LEVETIRACETAM 500 MG TAB PO SCH ×2 (08:42→22:10)
[2018-04-21] MEDS: ASPIRIN 81 MG ECTAB PO SCH (08:42)
[2018-04-21] MEDS: DOCUSATE SODIUM/SENNA 50/8.6MG TAB PO SCH (12:30)
--- NOTE | 2018-04-21 13:27 | CONSULTATION REPORT ---
DATE OF CONSULTATION: 04/16/2018 CHIEF COMPLAINT: Obtained from rehab records. Would not and did not communicate with him secondary to dementia, hearing impairment, and altered status. 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 PAST MEDICAL HISTORY: Significant for cardiomyopathy, coronary artery disease, CABG, past tobacco use, past alcohol abuse, chronic anemia, dementia, and seizure disorder. The patient was having some recent falls. He came to the hospital for evaluation and treatment. I initially saw him on 04/16/2018. He was obtunded and thrashing about in the room at the second floor of [facility]. I am seeing him today for evaluation as well. He is resting comfortably on his left side. He has no complaints. He will respond slightly to stimuli. Neurologically intact. Vascular structures intact. Images reviewed. 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 PLAN: Needs no treatment, no plan, no surgery, and no collar. Observation only. He is DNR status among other things, and he needs no followup appointment.
[2018-04-21] MEDS ORDERED: BOOST GLUCOSE CONTROL VANILLA PO SCH (14:00)
[2018-04-21 14:58] VITALS: BP 156/85; PULSE 75; TEMP 36.8; O2SAT 93
[2018-04-21] MEDS: ACETAMINOPHEN 325 MG TAB PO PRN (16:28)
--- NOTE | 2018-04-21 16:48 | PROGRESS NOTE ---
DATE: 04/21/2018 I am seeing Mr. De La Garza in followup. He has a history of seizures, was admitted after being found relatively unresponsive at home sitting in a chair. He has been delirious and had been intermittently n.p.o. and was therefore on Keppra 1000 twice a day while he was not taking his Lamictal regularly. He is back to taking Lamictal, although he has been refusing some of his doses and Keppra has been converted to an oral form. He apparently was somewhat more agitated this morning. He is sleepy at this point but arousable and I elected not to agitate him. IMPRESSION: This patient with a known seizure disorder, may have had a seizure prior to admission. At some point we would like him to have an MRI of the brain. I see that an MRI of the cervical spine was attempted and was not tolerated; this can wait until after discharge. The plan would be to continue Lamictal about another week as he had missed quite a few doses and then likely taper the Keppra by 250 every week or so until back down to 250 twice a day which I will probably keep in addition to the Lamictal with the thought that in spite of a therapeutic level it is possible he had a breakthrough seizure. We will continue to follow with you. CONSTANTINE
--- NOTE | 2018-04-21 17:02 | Progress Note ---
Internal Med Progress Note Date of Service: Apr 21, 2018. Provider Documentation: SUBJECTIVE: remains confused had period of agitation earlier this morning , pulling at lines and catheter continue to require 1:1 observation for safety updated son Hector De La Garza over phone pt is accepted at the NH/Dementia unit at [place] needs to be off 1:1 observation for at least 24 hrs before transition to computer terminal operator care OBJECTIVE: Vital Signs-as noted below Exam: General-chronically ill-appearing elderly male, confused Eyes-sclera nonicteric ENT-moist oral mucosa Neck-no JVD, no carotid bruit, trachea midline, no thyroid Lungs-clear to auscultate Heart-S1 S2 Abdomen-soft nontender Extremities-multiple bruises on extremities, Left elbow wound -bandaged Neuro-baseline dementia , no focal neurological deficits Lab data as noted below. ASSESSMENT & PLAN: CONFUSION /CHANGE MENTAL STATUS/METABOLIC ENCEPHALOPATHY -Has underlying dementia -Presented with worsening confusion/delirium -CT head without contrast: No acute intracranial abnormality. Nasal bone deformity suggesting old fracture. Mild frontal scalp swelling. -CT neck: Age indeterminate odontoid fracture with 7.5 mm of posterior displacement of the superior fragment (displacement has increased from prior CT suggestive of 3 mm displacement) -EEG of brain: No evidence of seizure activity -Repeat CT head without contrast: Shows no significant change -Appreciate input from neurology Continue to observe fall precaution -Frequent reorientation to limit sundowning/delirium -Avoid benzodiazepine/anti-cholinergic drugs FRACTURES OF CERVICAL 2 VERTEBRAE/ODONTOID FRACTURE NOTED IN CT NECK -Orthopedic consulted-appreciate input -old fracture /no surgical intervention needed /no need for cervical collar -observe fall precaution HISTORY OF SEIZURE DISORDER -Appreciate neurology evaluation -Patient is continued with Keppra -P.o. Lamictal Seizure precautions -neurology following INFECTED LEFT ELBOW WOUND -MSSA (present on admission) -Left elbow wound secondary to fall -X-ray of elbow: Considerable soft tissue disruption and edematous change posterior to the elbow -Wound culture growing Staphylococcus-MSSA was treated with IV vancomycin -changed to PO Doxycycline needs total 7 days tx HISTORY OF CORONARY ARTERY DISEASE STATUS POST CABG -No active issue, no symptom of angina -Echo: Mild concentric left ventricular hypertrophy. -Normal left ventricular wall motion -Left ventricular ejection fraction 60-65 -Aortic valve sclerosis mild, without significant aortic valvular stenosis HYPOTHYROIDISM Continue levothyroxine CODE STATUS: DNR/DNI DVT PROPHYLAXIS Subcu heparin DISPOSITION pt is accepted at [facility] unit needs to be off 1:1 observation for at least 24 hrs prior to transfer Son : Hector De La Garza updated over phone Vital Signs: Date Time Temp Pulse Resp B/P (MAP) Pulse Ox O2 Delivery O2 Flow Rate FiO2 04/21/18 14:58 36.8 75 20 156/85 (108) 93 Room Air 04/21/18 07:55 Room Air 04/21/18 06:53 36.4 76 16 132/67 (88) 98 Room Air 04/20/18 23:45 Room Air 04/20/18 21:33 88 157/68 (97) Lab Results: Results Past 24 Hours Test 04/21/18 06:54 04/21/18 08:09 04/21/18 12:19 Range/Units Creatinine 0.57 0.60-1.40 mg/dl Est Creatinine Clear Calc Drug Dose 82.8 ml/min Estimated GFR () 111.6 Estimated GFR (Non- 96.3 Bedside Glucose 115 95 70-99 mg/dl
[2018-04-21] MEDS ORDERED: VANCOMYCIN TROUGH ONE (17:30)
[2018-04-21] MEDS: BOOST GLUCOSE CONTROL VANILLA PO SCH (17:45)
[2018-04-21 23:33] VITALS: BP 161/80; PULSE 74; TEMP 36.6; O2SAT 91
[2018-04-22 07:02] VITALS: BP 163/78; PULSE 70; TEMP 36.7; O2SAT 97
[2018-04-22] MEDS: LEVETIRACETAM 500 MG TAB PO SCH ×2 (08:41→21:33)
[2018-04-22] MEDS: DOXYCYCLINE HYCLATE 100 MG CAP PO SCH ×2 (08:41→21:33)
[2018-04-22] MEDS: BOOST GLUCOSE CONTROL VANILLA PO SCH ×3 (08:46→21:33)
--- NOTE | 2018-04-22 14:53 | Neurology Progress Notes ---
Neurology Progress Note Date of Service Apr 22, 2018. Mainor Sims is a 82 year old male who has a H dementia, seizure disorder, stroke, delirium, LV mural thrombus, odontoid fracture in 2011 non surgical, [place]. He present to [facility] on 04/14/2018 for episode of emesis and confusion. He had 2 falls over the past week, and 2 episodes of vomiting. His son found him in a chair incontinent of urine which is a chronic issue and took him to the ED. He was found stable and discharged to [facility] for inpatient rehab. He was found on the floor at and was sent to the ED for evaluation. His son feels it was likely a seizure. His lamictal level at [facility] was 18.9. He lives independently. Today he is sleeping. Nursing reports he has been much better today. The 1:1 was removed last evening at midnight and so far he has not needed further 1:1 assistance. He is still refusing some medications. Objective Date Time Temp Pulse Resp B/P (MAP) Pulse Ox O2 Delivery O2 Flow Rate FiO2 04/22/18 08:00 Room Air 04/22/18 07:02 36.7 70 15 163/78 (106) 97 Room Air 04/22/18 00:06 Room Air 04/21/18 23:33 36.6 74 18 161/80 (107) 91 Room Air 04/21/18 16:15 Room Air 04/21/18 14:58 36.8 75 20 156/85 (108) 93 Room Air Last 24 Hours Test 04/21/18 17:08 04/21/18 20:56 04/22/18 07:41 04/22/18 12:01 Bedside Glucose 105 mg/dl 94 mg/dl 106 mg/dl 113 mg/dl Imaging: no new imaging- MRI c spine attempted but unsuccessful sequences Exam: gen: sleeping comfortably lungs normal respiratory effort CV RRR Current Inpatient Medications Medications (Trade) Dose Ordered Sig/Renzo Route Start Time Stop Time Status Last Admin Dose Admin Lamotrigine (Lamictal Tab) 250 mg HS PO 04/16/18 21:00 05/16/18 20:59 04/21/18 22:09 250 MG Acetaminophen (Tylenol Tab) 650 mg Q4H PRN PO 04/16/18 04:45 05/16/18 04:44 04/21/18 16:28 650 MG Docusate Sodium (coLACE CAP) 100 mg BID PRN PO 04/16/18 04:45 05/16/18 04:44 Lamotrigine (Lamictal Tab) 200 mg BID17 PO 04/16/18 09:00 05/16/18 08:59 04/22/18 08:41 200 MG Quetiapine Fumarate (seroQUEL TAB) 25 mg HS PO 04/16/18 21:00 05/16/18 20:59 Future Hold 04/16/18 20:49 25 MG Polyethylene (Miralax Powder Packet) 17 gm QDL PRN PO 04/16/18 04:45 05/16/18 04:44 Prochlorperazine Edisylate 5 mg/ Syringe 5 ml @ 5 mls/min Q6H PRN IV 04/16/18 04:45 05/16/18 04:44 Morphine Sulfate (MoRPHine SULFATE INJ) 2 mg Q4H PRN IV 04/16/18 04:45 04/30/18 04:44 04/19/18 14:29 2 MG Olanzapine (Zyprexa Inj) 2.5 mg Q4H PRN IM 04/18/18 01:00 05/18/18 00:59 Levetiracetam (Keppra Tab) 1,000 mg BID PO 04/20/18 21:00 05/20/18 20:59 04/22/18 08:41 1,000 MG Doxycycline Hyclate (Vibramycin Cap) 100 mg BID PO 04/20/18 21:00 04/30/18 20:59 04/22/18 08:41 100 MG Bisacodyl (Dulcolax Supp) 10 mg DAILY PRN [place] 04/20/18 17:30 05/20/18 17:29 Magnesium Hydroxide (Milk Of Magnesia Susp) 30 ml DAILY PRN PO 04/20/18 17:30 05/20/18 17:29 Enteral Nutritional Formula (Boost Glucose Control) 1 can TIDM PO 04/21/18 17:45 05/21/18 17:44 04/22/18 12:59 1 CAN Impression 82 year old with history of dementia, seizure disorder, multiple falls Plan 1. dementia and delusion- doing better today- no 1:1 in room 2. lamictal level 23.2- but now refusing some of his meds will need to be repeated once he is taking more consistently- would continue Keppra for now 3. baseline lives alone with help with meals and meds -son- son is looking at SNF placement- accepted at [facility] dementia unit 4. cleared neck- [place] j removed 5. CT head no acute findings 6. EEG no seizure activity noted 7. MRI brain would be helpful to r/o organic causes of MS change- he is not cooperative enough at this point to have MRI done 8. RPR, folate, B12- WNL, thiamine -still pending 9. TTE- no ASD 10. speech swallowing study to advance diet is now taking orals 11. currently on oral meds taking Keppra 1000 mg BID and Lamictal 200 mg am and 450 mg pm 12. plans for transfer to demential unit tomorrow if 1:1 remains off patient follow up 2-3 weeks after discharge with Selam Wyman MD or Selam Lr PAC schedule -neurology I have seen and discussed above patient with Dr Selam Wyman, neurology Pt with known sz disorder admitted with unwitnessed event, possibly sz. Has baseline dementia and has delirium here. Added Keppra to lamictal in part bc pt had not been taking by mouth. He is refusing meds intermittently. I would continue dual anti-convulsants and have him see us in 2 weeks. I will likely check a lamictal level then and likely taper keppra by 250 mg each week until taking keppra 250 mg twice a day. I will likely keep that onboard pt had presumed sz in spite of supratherapeutic lamictal level. CAROLIN Wyman MD
[2018-04-22 15:13] VITALS: BP 169/76; PULSE 88; TEMP 37.1; O2SAT 94
--- NOTE | 2018-04-22 18:17 | Progress Note ---
Internal Med Progress Note Date of Service: Apr 22, 2018. Provider Documentation: SUBJECTIVE: More pleasant today Has been off one-to-one observation, had no agitating or combative episodes since yesterday OBJECTIVE: Vital Signs-as noted below Exam: General-chronically ill-appearing elderly male, confused /advanced dementia/no sign of distress Eyes-sclera nonicteric ENT-moist oral mucosa Neck-no JVD, no carotid bruit, trachea midline, no thyroid Lungs-clear to auscultate Heart-S1 S2 Abdomen-soft nontender Extremities-multiple bruises on extremities, Left elbow wound -bandaged Neuro-baseline dementia , no focal neurological deficits Lab data as noted below. ASSESSMENT & PLAN: CONFUSION /CHANGE MENTAL STATUS/METABOLIC ENCEPHALOPATHY Due to underlying dementia worsened of mental status secondary to infection -Presented with worsening confusion/delirium -CT head without contrast: No acute intracranial abnormality. Nasal bone deformity suggesting old fracture. Mild frontal scalp swelling. -CT neck: Age indeterminate odontoid fracture with 7.5 mm of posterior displacement of the superior fragment (displacement has increased from prior CT suggestive of 3 mm displacement) -EEG of brain: No evidence of seizure activity -Repeat CT head without contrast: Shows no significant change -Appreciate input from neurology Continue to observe fall precaution -Frequent reorientation to limit sundowning/delirium -Avoid benzodiazepine/anti-cholinergic drugs FRACTURES OF CERVICAL 2 VERTEBRAE/ODONTOID FRACTURE NOTED IN CT NECK -Orthopedic consulted-appreciate input -old fracture /no surgical intervention needed /no need for cervical collar -observe fall precaution HISTORY OF SEIZURE DISORDER -Appreciate neurology evaluation -Patient is continued with Keppra -P.o. Lamictal Seizure precautions -neurology following INFECTED LEFT ELBOW WOUND -MSSA (present on admission) -Left elbow wound secondary to fall -X-ray of elbow: Considerable soft tissue disruption and edematous change posterior to the elbow -Wound culture growing Staphylococcus-MSSA was treated with IV vancomycin -changed to PO Doxycycline needs total 7 days tx HISTORY OF CORONARY ARTERY DISEASE STATUS POST CABG -No active issue, no symptom of angina -Echo: Mild concentric left ventricular hypertrophy. -Normal left ventricular wall motion -Left ventricular ejection fraction 60-65 -Aortic valve sclerosis mild, without significant aortic valvular stenosis HYPOTHYROIDISM Continue levothyroxine CODE STATUS: DNR/DNI DVT PROPHYLAXIS Subcu heparin DISPOSITION pt is accepted at [place] dementia unit Patient has been off one-to-one for more than 18 hours Possible transfer to [facility] unit tomorrow, if no episode of agitation or combativeness noted Vital Signs: Date Time Temp Pulse Resp B/P (MAP) Pulse Ox O2 Delivery O2 Flow Rate FiO2 04/22/18 15:13 37.1 88 18 169/76 (107) 94 Room Air 04/22/18 08:00 Room Air 04/22/18 07:02 36.7 70 15 163/78 (106) 97 Room Air 04/22/18 00:06 Room Air 04/21/18 23:33 36.6 74 18 161/80 (107) 91 Room Air Lab Results: Results Past 24 Hours Test 04/21/18 20:56 04/22/18 07:41 04/22/18 12:01 Range/Units Bedside Glucose 94 106 113 70-99 mg/dl
[2018-04-22] MEDS: ACETAMINOPHEN 325 MG TAB PO PRN (22:28)
[2018-04-22 22:55] VITALS: BP 121/73; PULSE 85; TEMP 37; O2SAT 94
[2018-04-23] VITALS (8 sets, daily range): BP systolic 144–174; BP diastolic 61–83; PULSE 66–79; TEMP 36.5–37; O2SAT 95–100
[2018-04-23] MEDS: DOXYCYCLINE HYCLATE 100 MG CAP PO SCH ×2 (08:38→09:00)
[2018-04-23] MEDS: LEVETIRACETAM 500 MG TAB PO SCH (08:38)
[2018-04-23] MEDS: BOOST GLUCOSE CONTROL VANILLA PO SCH (08:38)
[2018-04-23] MEDS ORDERED: ACETAMINOPHEN IV 650 MG in EMPTY BAG 0 ML IV PRN (09:15)
--- NOTE | 2018-04-23 09:18 | Progress Note ---
Progress Note Date of Service Apr 23, 2018. Progress Note ATTENDING NOTE : notified by nursing -pt was found to be unresponsive this morning ( change form yesterday -as he was awake and able to have conversation ) vitals stable stat CT head with out contrast ordered for possible CVA evaluated at bedside, opening eyes , moaning with sternal rub, no obvious facial droop noted ,moving limbs while attempt to place new IV site later complains of headache D/D: acute change in mental status : CVA vs Sz episode ? follow up CT head result tx to Telemetry to r/o cardiac arrhythmia NPO till mental status improves to baseline Keppra will be changed to IV ( refused meds day before yesterday 04/21/18, took all meds including anti Sz meds yesterday) cont Sz precaution will d/w Neurology Son: Hector De La Garza Updated over phone
--- NOTE | 2018-04-23 09:23 | DIAGNOSTIC IMAGING REPORT ---
HEAD WITHOUT CONTRAST (CT) CT DOSE: 614.27 mGy.cm HISTORY: Mental status change possible stroke TECHNIQUE: Multiaxial CT images of the head were performed without the use of intravenous contrast. A dose lowering technique was utilized adhering to the principles of ALARA. Comparison: 04/17/2018 Findings: The paranasal sinuses and mastoid air cells are clear. The calvarium and skull base are intact. The ventricles and sulci are within normal limits. There is no mass, hematoma, midline shift, or acute infarct. Impression: No acute intracranial abnormality. No change from prior The above report was generated using voice recognition software. It may contain grammatical, syntax or spelling errors. Electronically signed by: Justo Khan M.D. 04/23/2018 9:22 AM Dictated Date/Time: 04/23/2018 9:21 AM
[2018-04-23] MEDS ORDERED: LEVETIRACETAM IV 1,000 MG in DEXTROSE 5% 100ML 100 ML IV ONE (09:45)
--- NOTE | 2018-04-23 14:36 | Neurology Progress Notes ---
Neurology Progress Note Date of Service Apr 23, 2018. Mainor Sims is a 82 year old male who has a [facility] dementia, seizure disorder, stroke, delirium, LV mural thrombus, odontoid fracture in 2011 non surgical, [place]. He present to [facility] on 04/14/2018 for episode of emesis and confusion. He had 2 falls over the past week, and 2 episodes of vomiting. His son found him in a chair incontinent of urine which is a chronic issue and took him to the ED. He was found stable and discharged to [facility] for inpatient rehab. He was found on the floor at and was sent to the ED for evaluation. His son feels it was likely a seizure. His lamictal level at [facility] was 18.9. He lives independently. Today he is sleeping. Nursing reports he has been much better today. This am he had an unresponsive event. He was post ictal for a prolonged period. STAT EEG was ordered for today. He was transferred back to 2nd floor for closer observation. he is awake and alert at this time appears back to baseline. denies CP, SOB, abdominal pain, N, V, falls, loss of bowel or bladder, or tongue biting. Objective Date Time Temp Pulse Resp B/P (MAP) Pulse Ox O2 Delivery O2 Flow Rate FiO2 04/23/18 12:00 Nasal Cannula 2.0 04/23/18 11:52 36.6 68 18 146/73 (97) 100 Nasal Cannula 2.0 04/23/18 10:12 36.5 67 20 147/73 (97) 95 Room Air 04/23/18 09:24 36.8 74 16 95 2.0 04/23/18 08:58 147/75 (99) 04/23/18 08:57 74 15 174/78 (110) 95 Room Air 04/23/18 06:49 36.8 79 16 162/83 (109) 100 Room Air 04/22/18 23:45 Room Air 04/22/18 22:55 37.0 85 18 121/73 (89) 94 Room Air 04/22/18 16:40 Room Air 04/22/18 15:13 37.1 88 18 169/76 (107) 94 Room Air Last 24 Hours Test 04/23/18 07:58 04/23/18 10:21 Bedside Glucose 103 mg/dl 115 mg/dl Imaging: CT head- No acute intracranial abnormality. No change from prior Exam: Gen: alert oriented to self lungs CTA CV RRR hand business relations manager biceps triceps 5/5 bilaterally, hip flex plantar flex ext 5/5 bilaterally Current Inpatient Medications Medications (Trade) Dose Ordered Sig/Renzo Route Start Time Stop Time Status Last Admin Dose Admin Lamotrigine (Lamictal Tab) 250 mg HS PO 04/16/18 21:00 05/16/18 20:59 04/22/18 21:34 250 MG Acetaminophen (Tylenol Tab) 650 mg Q4H PRN PO 04/16/18 04:45 05/16/18 04:44 04/22/18 22:28 650 MG Docusate Sodium (coLACE CAP) 100 mg BID PRN PO 04/16/18 04:45 05/16/18 04:44 Lamotrigine (Lamictal Tab) 200 mg BID17 PO 04/16/18 09:00 05/16/18 08:59 04/22/18 18:28 200 MG Quetiapine Fumarate (seroQUEL TAB) 25 mg HS PO 04/16/18 21:00 05/16/18 20:59 Future Hold 04/16/18 20:49 25 MG Polyethylene (Miralax Powder Packet) 17 gm QDL PRN PO 04/16/18 04:45 05/16/18 04:44 Prochlorperazine Edisylate 5 mg/ Syringe 5 ml @ 5 mls/min Q6H PRN IV 04/16/18 04:45 05/16/18 04:44 Morphine Sulfate (MoRPHine SULFATE INJ) 2 mg Q4H PRN IV 04/16/18 04:45 04/30/18 04:44 04/19/18 14:29 2 MG Olanzapine (Zyprexa Inj) 2.5 mg Q4H PRN IM 04/18/18 01:00 05/18/18 00:59 Doxycycline Hyclate (Vibramycin Cap) 100 mg BID PO 04/20/18 21:00 04/30/18 20:59 Future Hold 04/22/18 21:33 100 MG Bisacodyl (Dulcolax Supp) 10 mg DAILY PRN [place] 04/20/18 17:30 05/20/18 17:29 Magnesium Hydroxide (Milk Of Magnesia Susp) 30 ml DAILY PRN PO 04/20/18 17:30 05/20/18 17:29 Enteral Nutritional Formula (Boost Glucose Control) 1 can TIDM PO 04/21/18 17:45 05/21/18 17:44 Future Hold 04/23/18 08:38 1 CAN Acetaminophen 650 mg/Empty Bag 65 ml @ 260 mls/hr Q6H PRN IV 04/23/18 09:15 05/23/18 09:14 Levetiracetam 1000 mg/Dextrose 110 ml @ 440 mls/hr Q12 IV 04/23/18 21:00 05/23/18 20:59 Impression 82 year old with history of dementia, seizure disorder, multiple falls Plan 1. dementia and delusion- appears back to baseline 2. lamictal level 23.2- but now refusing some of his meds will need to be repeated once he is taking more consistently- would restart IV Keppra event was likely a seizure, recheck lamictal and Keppra level on Thursday 3. baseline lives alone with help with meals and meds -son- son is looking at SNF placement- accepted at [place] dementia unit 4. cleared neck- [place] j removed 5. CT head no acute findings repeated today with no change 6. EEG no seizure activity noted- STAT EEG ordered to evaluate change in MS 7. MRI brain would be helpful to r/o organic causes of MS change- he is not cooperative enough at this point to have MRI done 8. RPR, folate, B12- WNL, thiamine -WNL 9. TTE- no ASD 10. speech swallowing study to advance diet is now taking orals 11. currently on oral meds taking Keppra 1000 mg BID and Lamictal 200 mg am and 450 mg pm- he has been refusing medications 12. plans for transfer to demential unit tomorrow if 1:1 remains off patient follow up 2-3 weeks after discharge with Selam Wyman MD or Selam Lr PAC schedule -neurology I have seen and discussed above patient with Dr John Collado, neurology Paatient seen and event reviewed jeff a breakthrough seizure despite a normal eeg done several hours later and an unchanged eeg now bck to baseline according to son will hold through the weekend continue iv keppra for now and in several days get levels of lamictal and keppra to serve as future baselines will folow though the weekend renee collado MD
--- NOTE | 2018-04-23 15:14 | ELECTROENCEPHALOGRAPH REPORT ---
CLINICAL DIAGNOSIS: Recurrent episode of syncope, question seizures. ELECTROENCEPHALOGRAM DIAGNOSIS: Essentially normal during wakefulness. DESCRIPTION OF TRACING: This EEG was obtained as a bedside recording shortly after the patient has had a syncopal event. Video analysis of patient movement and behavior was obtained. Photic stimulation was performed. Hyperventilation was not. The drowsiness and light sleep were not recorded. Under these conditions, there was evidence for what appears to be normal background rhythm in the alpha range of up to 9-10 Hz of maximum frequency and 30 microvolts of maximum amplitude. This was maximum posterior head region and bilaterally symmetrical. Polymorphic mid frequency theta activity seen over all head regions without clear focal or regional predominance. Anterior head region maximum bilaterally symmetrical. Low voltage fast activity in the beta range is present. Photic stimulation provokes a minimal driving response without a photomyogenic or photoparoxysmal component. At no time during the waking tracing is there evidence for potentially epileptogenic activity in the form of polyspike or spike wave bursts, focal sharp waves or focal spikes. INTERPRETATION: This EEG is essentially normal during wakefulness without evidence for focal or generalized encephalopathy and without evidence for potentially epileptogenic activity, but the absence of the latter does not exclude the diagnosis of a seizure disorder.
--- NOTE | 2018-04-23 17:06 | Progress Note ---
Internal Med Progress Note Date of Service: Apr 23, 2018. Provider Documentation: SUBJECTIVE: Patient was found unresponsive by nursing Evaluated at bedside, open eyes briefly with sternal rub Staring at ceiling, no facial droop noted Patient tries to withdraw arm when attempted to put IV site Vital signs stable Ordered for stat CT head without contrast to rule out CVA EEG for evaluation of breakthrough seizure Patient will be transferred to PCU for close monitoring of hemodynamics OBJECTIVE: Vital Signs-as noted below Exam: General-chronically ill-appearing elderly male, unresponsive Eyes-sclera nonicteric ENT-moist oral mucosa Neck-no JVD, no carotid bruit, trachea midline, no thyroid Lungs-clear to auscultate Heart-S1 S2 Abdomen-soft nontender Extremities-multiple bruises on extremities, Left elbow wound -bandaged Neuro-more lethargic, confused, episode of unresponsiveness, responding to pain and touch no apparent focal neurological deficit noted Lab data as noted below. ASSESSMENT & PLAN: EPISODE OF UNRESPONSIVENESS/POSSIBLE BREAKTHROUGH SEIZURE Stat CT head without contrast shows no evidence of acute CVA Patient appeared to be postictal Gradually became more alert and awake later part of the day Still remains confused, not oriented to time place person No dysarthria or dysphasia Discussed with neurology Repeat EEG ordered Patient started with IV Keppra thousand milligrams twice daily (missed dose of oral Keppra past 2 days secondary to delirium/refusing to take meds) Monitor in PCU Continue Lamictal 300 mg p.o. twice daily CONFUSION /CHANGE MENTAL STATUS/METABOLIC ENCEPHALOPATHY Due to underlying dementia worsened of mental status secondary to infection -Presented with worsening confusion/delirium -CT head without contrast: No acute intracranial abnormality. Nasal bone deformity suggesting old fracture. Mild frontal scalp swelling. -CT neck: Age indeterminate odontoid fracture with 7.5 mm of posterior displacement of the superior fragment (displacement has increased from prior CT suggestive of 3 mm displacement) -EEG of brain: No evidence of seizure activity -Repeat CT head without contrast: Shows no significant change -Appreciate input from neurology Continue to observe fall precaution -Frequent reorientation to limit sundowning/delirium -Avoid benzodiazepine/anti-cholinergic drugs FRACTURES OF CERVICAL 2 VERTEBRAE/ODONTOID FRACTURE NOTED IN CT NECK -Orthopedic consulted-appreciate input -old fracture /no surgical intervention needed /no need for cervical collar -observe fall precaution HISTORY OF SEIZURE DISORDER -Appreciate neurology evaluation -Patient is continued with Keppra -P.o. Lamictal 300 mg p.o. twice daily Possible breakthrough seizure causing episode of unresponsiveness Repeat EEG ordered INFECTED LEFT ELBOW WOUND -MSSA (present on admission) -Left elbow wound secondary to fall -X-ray of elbow: Considerable soft tissue disruption and edematous change posterior to the elbow -Wound culture growing Staphylococcus-MSSA was treated with IV vancomycin -Completed PO Doxycycline total 7 days tx HISTORY OF CORONARY ARTERY DISEASE STATUS POST CABG -No active issue, no symptom of angina -Echo: Mild concentric left ventricular hypertrophy. -Normal left ventricular wall motion -Left ventricular ejection fraction 60-65 -Aortic valve sclerosis mild, without significant aortic valvular stenosis HYPOTHYROIDISM Continue levothyroxine CODE STATUS: DNR/DNI DVT PROPHYLAXIS Subcu heparin DISPOSITION To be determined pt is accepted at [place] Patient will be transferred to [place] [facility] / dementia unit when medically stable Vital Signs: Date Time Temp Pulse Resp B/P (MAP) Pulse Ox O2 Delivery O2 Flow Rate FiO2 04/25/18 08:00 Room Air 04/25/18 00:00 Room Air 04/24/18 23:23 36.8 76 18 167/77 (107) 95 Room Air 04/24/18 19:00 Room Air 04/24/18 18:45 36.8 89 18 156/67 (96) 95 Room Air 04/24/18 18:40 36.5 76 18 90 2.0 Lab Results: Results Past 24 Hours Test 04/25/18 16:28 Range/Units
[2018-04-23] MEDS: ACETAMINOPHEN 325 MG TAB PO PRN (19:31)
[2018-04-23] MEDS: LEVETIRACETAM IV 1,000 MG in DEXTROSE 5% 100ML 100 ML IV SCH (19:32)
[2018-04-24] VITALS (8 sets, daily range): BP systolic 130–173; BP diastolic 65–84; PULSE 71–89; TEMP 36.5–37; O2SAT 90–97
[2018-04-24] MEDS: LEVETIRACETAM IV 1,000 MG in DEXTROSE 5% 100ML 100 ML IV SCH ×2 (08:28→21:30)
[2018-04-24] MEDS: ACETAMINOPHEN 325 MG TAB PO PRN (14:53)
--- NOTE | 2018-04-24 16:35 | Progress Note ---
Internal Med Progress Note Date of Service: Apr 24, 2018. Provider Documentation: SUBJECTIVE: Awake and alert today Conversing with nursing Good appetite finished breakfast and lunch Denies of any headache No episode of agitation unresponsiveness noted No seizure activity No arrhythmia on telemetry Patient will be transferred to medical floor OBJECTIVE: Vital Signs-as noted below Exam: General-chronically ill-appearing elderly male, pleasant no sign of distress Eyes-sclera nonicteric ENT-moist oral mucosa Neck-no JVD, no carotid bruit, trachea midline, no thyroid Lungs-clear to auscultate Heart-S1 S2 Abdomen-soft nontender Extremities-multiple bruises on extremities, Left elbow wound -bandaged Neuro-baseline dementia , no focal neurological deficits Lab data as noted below. ASSESSMENT & PLAN: EPISODE OF UNRESPONSIVENESS/POSSIBLE BREAKTHROUGH SEIZURE symptom has resolved possible due to breakthrough sz Stat CT head without contrast showed no evidence of acute CVA appreciate Neurology eval Repeat EEG no Sz activity noted cont IV Keppra thousand milligrams twice daily (missed dose of oral Keppra past 2 days secondary to delirium/refusing to take meds) Continue Lamictal 300 mg p.o. twice daily stable to transfer to medical floor CONFUSION /CHANGE MENTAL STATUS/METABOLIC ENCEPHALOPATHY Due to underlying dementia worsened of mental status secondary to infection -Presented with worsening confusion/delirium -CT head without contrast: No acute intracranial abnormality. Nasal bone deformity suggesting old fracture. Mild frontal scalp swelling. -CT neck: Age indeterminate odontoid fracture with 7.5 mm of posterior displacement of the superior fragment (displacement has increased from prior CT suggestive of 3 mm displacement) -EEG of brain: No evidence of seizure activity -Repeat CT head without contrast: Shows no significant change -Appreciate input from neurology Continue to observe fall precaution -Frequent reorientation to limit sundowning/delirium -Avoid benzodiazepine/anti-cholinergic drugs FRACTURES OF CERVICAL 2 VERTEBRAE/ODONTOID FRACTURE NOTED IN CT NECK -Orthopedic consulted-appreciate input -old fracture /no surgical intervention needed /no need for cervical collar -observe fall precaution HISTORY OF SEIZURE DISORDER -Appreciate neurology evaluation -Patient is continued with Keppra -P.o. Lamictal 300 mg p.o. twice daily Possible breakthrough seizure causing episode of unresponsiveness Repeat EEG : no Sz activity noted mental status improved to baseline INFECTED LEFT ELBOW WOUND -MSSA (present on admission) -Left elbow wound secondary to fall -X-ray of elbow: Considerable soft tissue disruption and edematous change posterior to the elbow -Wound culture growing Staphylococcus-MSSA was treated with IV vancomycin -Completed PO Doxycycline total 7 days tx HISTORY OF CORONARY ARTERY DISEASE STATUS POST CABG -No active issue, no symptom of angina -Echo: Mild concentric left ventricular hypertrophy. -Normal left ventricular wall motion -Left ventricular ejection fraction 60-65 -Aortic valve sclerosis mild, without significant aortic valvular stenosis HYPOTHYROIDISM Continue levothyroxine CODE STATUS: DNR/DNI DVT PROPHYLAXIS Subcu heparin DISPOSITION transfer to medical floor today Vital Signs: Date Time Temp Pulse Resp B/P (MAP) Pulse Ox O2 Delivery O2 Flow Rate FiO2 04/25/18 08:00 Room Air 04/25/18 00:00 Room Air 04/24/18 23:23 36.8 76 18 167/77 (107) 95 Room Air 04/24/18 19:00 Room Air 04/24/18 18:45 36.8 89 18 156/67 (96) 95 Room Air 04/24/18 18:40 36.5 76 18 90 2.0 Lab Results: Results Past 24 Hours Test 04/25/18 16:28 Range/Units
--- NOTE | 2018-04-24 16:52 | PROGRESS NOTE ---
DATE: 04/24/2018 Levi was seen today. He is pleasantly confused, he has been very agitated, cooperates but clearly does not know where he is and is repetitious, all consistent with his known dementia. No seizure activity has been reported and as of yesterday afternoon when I talked to his son, he is likely back to his baseline. How this man has been living independently is not clear to me, but apparently this can be rectified after he is transferred to an extended care facility, hopefully on Thursday and hopefully after remains seizure free. He continues to be on Lamictal on an unusual dosing pattern of 200 mg in morning and 450 at night, but I suspect he has been doing this for years and he has been placed on Keppra now 1000 mg IV twice a day to be sure he gets medication but apparently has been much more cooperative and taking his medications. His nurse with whom I spoke today indicates that he has no problems and I think we may switch him to oral Keppra tomorrow. He certainly has not become more irritable on keppra. He is no more lethargic, so at this dose, he seems to be doing well. Plans are to obtain baseline levels of both Lamictal and Keppra on Thursday after he has been on both drugs hopefully in a consistent fashion for several days just to see where these levels might be and certainly if there is any toxic range then on an outpatient basis the doses can be dialed back a bit. I am going to change his Lamictal dosing; however, to 300 mg twice a day which is simply 50 mg decrement but he is already running some toxic levels or nearly toxic levels, according to what we glean from prior lab reports, I do not think it is going to make a difference and makes a lot more pharmacologic sense. Otherwise, again tomorrow, I will probably try to switch him to oral Keppra 1000 twice a day if he is compliant with the oral lamictal. MTDD
[2018-04-25] MEDS: LEVETIRACETAM IV 1,000 MG in DEXTROSE 5% 100ML 100 ML IV SCH (08:42)
--- NOTE | 2018-04-25 14:56 | PROGRESS NOTE ---
DATE: 04/25/2018 Levi has been moved out of the unit. He has been on a regular medical floor. He is no longer being monitored. 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 He has no idea where he is. He does know the year, does know the date, knows his of cancer and became a little tearful, knows his son was noted to visit him but really does not have any concept that he is in a hospital. He has had no seizures. According to nurses, his oral intake has been adequate, and he has been taking his medications as scheduled, so at this point I am going to stop the IV Keppra and continue at 1000 mg orally twice a day, along with the Lamictal which I adjusted from its unusual dose of 200 in the morning and 450 at night to 300 mg twice a day. I put in for laboratory studies, i.e., drug levels of both Keppra and Lamictal to be done tomorrow, but these would not be available for a week or so. Followup is not clear. He is going to be in an extended care facility in [place]. Dr. Wyman has seen him. I am not sure which neurologist has seen him for his seizures in the past. It is possibly Dr. Domingo. Whatever the case, he should be followed up about 3-4 weeks after this hospitalization for assessment of his overall neurologic status on these medications and for determination of more blood levels just to be certain that they remain in the therapeutic range. Dr. Wyman wanted to consider tapering off the Keppra, and this may in retrospect not be a good idea as he did have some breakthrough seizures here while he was on intravenous Keppra at 1000 mg twice a day in addition to his oral Lamictal, which he may or may not have been compliant with. When looking back over the notes, it appears that only a few doses were missed, so he may be someone who requires 2 anticonvulsants for control. Regarding this issue, his son, with whom I spoke on Thursday, states that his frequency of seizures was generally about 4 per year, but he points out that this man lived alone and was not seen frequently by family, and he could have been having partial seizures albeit higher frequency. Perhaps with observation in the extended care facility, a more reasonable estimate of seizure frequency will be available, and certainly compliance should not be an issue with anticonvulsants. We will look at him tomorrow for 1 final time unless of course he is discharged to a ch[facility], which I think was the plan all along but could have been delayed because of his breakthrough seizure on Thursday. CONSTANTINE
[2018-04-25] MEDS ORDERED: LMC100 PO (16:20)
[2018-04-25] MEDS ORDERED: NUTR-7 PO (16:20)
[2018-04-25] MEDS ORDERED: LEVE500T13 PO (16:20)
--- NOTE | 2018-04-25 16:26 | Discharge Instructions ---
Discharge Instructions Date of Service Apr 25, 2018. Admission Reason for Admission: AMS Discharge Discharge Diagnosis / Problem: DEMENITA /DELIRIUM /SEIZURE DISORDER Discharge Goals Goal(s): Decrease discomfort, Improve function, Increase independence, Improve disease control, Therapeutic intervention Activity Recommendations Activity Level: Assistance Required . Additional Information Patient informed of condition: Yes Advance Directives: Yes DNR: Yes Level of Care: Skilled Communicable Disease: No Prognosis: Stable [place] Catheter: No Instructions / Follow-Up Instructions / Follow-Up FOLLOW UP WITH PHYSICIANS AT [facility] Diet Patient's current hospital diet: , AHA Diet (Heart Healthy) Discharge Diet Recommended Diet: AHA Diet (Heart Healthy) Diet Texture: Mechanical Soft (ground) Pending Studies Studies pending at discharge: no Laboratory Results Hemoglobin A1c Test 04/16/18 00:35 Range/Units Estimated Average Glucose 114 mg/dl Hemoglobin A1c 5.6 4.5-5.6 % Medical Emergencies . Who to Call and When: Medical Emergencies: If at any time you feel your situation is an emergency, please call 911 immediately. . Non-Emergent Contact Non-Emergency issues call your: Primary Care Provider . . "Provider Documentation" section prepared by Tia Dillon. . Core Measure Problem Core Measures: None
--- NOTE | 2018-04-25 16:43 | Progress Note ---
Internal Med Progress Note Date of Service: Apr 25, 2018. Provider Documentation: SUBJECTIVE: very pleasant , talking , laughing with nursing stuff no episode of confusion of combativeness vitals stable OBJECTIVE: Vital Signs-as noted below Exam: General-chronically ill-appearing elderly male, pleasant no sign of distress Eyes-sclera nonicteric ENT-moist oral mucosa Neck-no JVD, no carotid bruit, trachea midline, no thyroid Lungs-clear to auscultate Heart-S1 S2 Abdomen-soft nontender Extremities-multiple bruises on extremities, Left elbow wound -bandaged Neuro-baseline dementia , no focal neurological deficits Lab data as noted below. ASSESSMENT & PLAN: EPISODE OF UNRESPONSIVENESS/POSSIBLE BREAKTHROUGH SEIZURE -Possible secondary to breakthrough seizure -Symptom has completely resolved, Patient is very pleasant, conversing appropriately Has frequent forgetfulness/strict short-term memory loss secondary to dementia Repeat EEG on 04/23/2018: No epileptogenic activity noted Change Keppra 1000 mg bid to p.o. Continue Lamictal 300 mg p.o. twice daily Appreciate input from neurology CONFUSION /CHANGE MENTAL STATUS/METABOLIC ENCEPHALOPATHY Due to underlying dementia worsened of mental status secondary to infection ( infected wound at left elbow) -Presented with worsening confusion/delirium -CT head without contrast: No acute intracranial abnormality. Nasal bone deformity suggesting old fracture. Mild frontal scalp swelling. -CT neck: Age indeterminate odontoid fracture with 7.5 mm of posterior displacement of the superior fragment (displacement has increased from prior CT suggestive of 3 mm displacement) -EEG of brain: No evidence of seizure activity -Repeat CT head without contrast: Shows no significant change -Appreciate input from neurology Continue to observe fall precaution -Frequent reorientation to limit sundowning/delirium -Avoid benzodiazepine/anti-cholinergic drugs FRACTURES OF CERVICAL 2 VERTEBRAE/ODONTOID FRACTURE NOTED IN CT NECK -Orthopedic consulted-appreciate input -old fracture /no surgical intervention needed /no need for cervical collar -observe fall precaution -Stable to be transferred to skilled rehab when medically appropriate HISTORY OF SEIZURE DISORDER -Appreciate neurology evaluation -Patient is continued with Keppra 1000 mg BID -change to p.o. -P.o. Lamictal 300 mg p.o. twice daily Possible breakthrough seizure causing episode of unresponsiveness Repeat EEG : Showed no seizures activity INFECTED LEFT ELBOW WOUND -MSSA (present on admission) -Left elbow wound secondary to fall -X-ray of elbow: Considerable soft tissue disruption and edematous change posterior to the elbow -Wound culture growing Staphylococcus-MSSA was treated with IV vancomycin -Completed PO Doxycycline total 7 days tx HISTORY OF CORONARY ARTERY DISEASE STATUS POST CABG -No active issue, no symptom of angina -Echo: Mild concentric left ventricular hypertrophy. -Normal left ventricular wall motion -Left ventricular ejection fraction 60-65 -Aortic valve sclerosis mild, without significant aortic valvular stenosis HYPOTHYROIDISM Continue levothyroxine CODE STATUS: DNR/DNI DVT PROPHYLAXIS Subcu heparin DISPOSITION pt is accepted at [facility] Possible transfer to [facility] / dementia unit tomorrow 2017 -Possible secondary to breakthrough seizure -Symptom has completely resolved, Patient is a very pleasant, conversing appropriately Has frequent forgetfulness/strict short-term memory loss secondary to dementia Repeat EEG on 04/23/2018: No epileptogenic activity noted Change Keppra 1000 mg bid to p.o. Continue Lamictal 300 mg p.o. twice daily Appreciate input from neurology CONFUSION /CHANGE MENTAL STATUS/METABOLIC ENCEPHALOPATHY Due to underlying dementia worsened of mental status secondary to infection ( infected wound at left elbow) -Presented with worsening confusion/delirium -CT head without contrast: No acute intracranial abnormality. Nasal bone deformity suggesting old fracture. Mild frontal scalp swelling. -CT neck: Age indeterminate odontoid fracture with 7.5 mm of posterior displacement of the superior fragment (displacement has increased from prior CT suggestive of 3 mm displacement) -EEG of brain: No evidence of seizure activity -Repeat CT head without contrast: Shows no significant change -Appreciate input from neurology Continue to observe fall precaution -Frequent reorientation to limit sundowning/delirium -Avoid benzodiazepine/anti-cholinergic drugs FRACTURES OF CERVICAL 2 VERTEBRAE/ODONTOID FRACTURE NOTED IN CT NECK -Orthopedic consulted-appreciate input -old fracture /no surgical intervention needed /no need for cervical collar -observe fall precaution -Stable to be transferred to skilled rehab when medically appropriate HISTORY OF SEIZURE DISORDER -Appreciate neurology evaluation -Patient is continued with Keppra 1000 mg BID -change to p.o. -P.o. Lamictal 300 mg p.o. twice daily Possible breakthrough seizure causing episode of unresponsiveness Repeat EEG : Showed no seizures activity INFECTED LEFT ELBOW WOUND -MSSA (present on admission) -Left elbow wound secondary to fall -X-ray of elbow: Considerable soft tissue disruption and edematous change posterior to the elbow -Wound culture growing Staphylococcus-MSSA was treated with IV vancomycin -Completed PO Doxycycline total 7 days tx HISTORY OF CORONARY ARTERY DISEASE STATUS POST CABG -No active issue, no symptom of angina -Echo: Mild concentric left ventricular hypertrophy. -Normal left ventricular wall motion -Left ventricular ejection fraction 60-65 -Aortic valve sclerosis mild, without significant aortic valvular stenosis HYPOTHYROIDISM Continue levothyroxine CODE STATUS: DNR/DNI DVT PROPHYLAXIS Subcu heparin DISPOSITION pt is accepted at [facility] Possible transfer to [facility] dementia unit tomorrow 2017 Vital Signs: Date Time Temp Pulse Resp B/P (MAP) Pulse Ox O2 Delivery O2 Flow Rate FiO2 04/25/18 08:00 Room Air 04/25/18 00:00 Room Air 04/24/18 23:23 36.8 76 18 167/77 (107) 95 Room Air 04/24/18 19:00 Room Air 04/24/18 18:45 36.8 89 18 156/67 (96) 95 Room Air 04/24/18 18:40 36.5 76 18 90 2.0 Lab Results: Results Past 24 Hours Test 04/25/18 16:28 Range/Units
[2018-04-25] MEDS: BOOST GLUCOSE CONTROL VANILLA PO SCH (16:55)
[2018-04-25] MEDS: LEVETIRACETAM 500 MG TAB PO SCH (20:26)
[2018-04-25 23:09] VITALS: BP 158/77; PULSE 76; TEMP 36.8; O2SAT 98
[2018-04-26] MEDS: ACETAMINOPHEN 325 MG TAB PO PRN ×2 (02:07→14:05)
[2018-04-26 07:19] VITALS: BP 143/75; PULSE 80
[2018-04-26] MEDS: LEVETIRACETAM 500 MG TAB PO SCH (09:02)
[2018-04-26] MEDS: BOOST GLUCOSE CONTROL VANILLA PO SCH ×2 (09:13→12:00)
[2018-04-26 13:11] VITALS: BP 143/75; PULSE 80; TEMP 36.8; O2SAT 98
[2018-04-26] MEDS ORDERED: POTA10TA30 PO (13:58)
[2018-04-26] MEDS ORDERED: METO25TA56 PO (14:02)
--- NOTE | 2018-04-26 14:25 | Progress Note ---
Medicine Progress Note Date & Time of Visit: Apr 26, 2018 at 09:20 . Subjective Prefers to be left alone. Denies CP, cough, SOB, nausea, vomiting, or other problems. . Objective Last 8 Hrs Date Time Temp Pulse Resp B/P (MAP) Pulse Ox O2 Delivery O2 Flow Rate FiO2 04/26/18 13:11 36.8 80 16 98 Room Air 04/26/18 07:50 Room Air 04/26/18 07:19 80 143/75 (97) Physical Exam: General- lying in bed; no distress Lungs- clear to auscultation; no respiratory distress Cardiovascular- RRR; no murmur or gallop appreciated; no JVD; no pretibial edema Abdomen- + bowel sounds, soft, nontender Extremities- no cyanosis; no calf tenderness Neuro- alert Skin- warm & dry . Laboratory Results: Last 24 Hours Test 04/25/18 17:03 04/26/18 07:55 04/26/18 07:56 Assessment & Plan SEIZURE DISORDER Seizure at [facility] day of admission. Seen in consultation by Neurology. No acute findings on CT. Anticonvulsants adjusted. Seizure-free on Lamictal 300 mg BID and Keppra 1000 mg BID. ALTERED MENTAL STATUS No acute findings on CT. Delirium / encephalopathy, possibly secondary to infectin. Improved. CEREBROVASCULAR DISEASE Discharge on aspirin, statin. CORONARY ARTERY DISEASE No anginal symptoms. Discharge on aspirin, metoprolol, statin. DYSLIPIDEMIA Continue atorvastatin. HYPOTHYROIDISM Continue levothyroxine. HYPOKALEMIA KCl 10 mEq BID. Follow. LEFT ELBOW INFECTION Culture grew MSSA. Treated with vancomycin and doxycycline; completed course of therapy. CERVICAL FRACTURE Imaging demonstrated type 2 odontoid fracture, present since 2011. Seen in consultation by Ortho Spine. No need for further evaluation or management. VTE PROPHYLAXIS Received SQ enoxaparin. RESUSCITATION STATUS DNR DISPOSITION Arrangements being made for transfer to [place] for skilled care. Follow-up with Neurology in 2-3 weeks recommended. . Current Inpatient Medications: Current Inpatient Medications Medications (Trade) Dose Ordered Sig/Renzo Route Start Time Stop Time Status Last Admin Dose Admin Acetaminophen (Tylenol Tab) 650 mg Q4H PRN PO 04/16/18 04:45 05/16/18 04:44 04/26/18 14:05 650 MG Polyethylene (Miralax Powder Packet) 17 gm QDL PRN PO 04/16/18 04:45 05/16/18 04:44 Prochlorperazine Edisylate 5 mg/ Syringe 5 ml @ 5 mls/min Q6H PRN IV 04/16/18 04:45 05/16/18 04:44 Magnesium Hydroxide (Milk Of Magnesia Susp) 30 ml DAILY PRN PO 04/20/18 17:30 05/20/18 17:29 Lamotrigine (Lamictal Tab) 300 mg BID PO 04/24/18 21:00 05/24/18 20:59 04/26/18 09:02 300 MG Levetiracetam (Keppra Tab) 1,000 mg BID PO 04/25/18 21:00 05/25/18 20:59 04/26/18 09:02 1,000 MG Enteral Nutritional Formula (Boost Glucose Control) 1 can TIDM PO 04/25/18 17:00 05/25/18 16:59 04/26/18 09:13 1 CAN
[2018-04-26] MEDS ORDERED: LSN25 PO (14:31)
--- NOTE | 2018-04-26 14:39 | Discharge Summary ---
Discharge Summary Date of Service Apr 26, 2018. Discharge Summary Admission Date: Apr 16, 2018 at 17:04 Discharge Date: Apr 26, 2018 Discharge Disposition: prison facility ([facility]) Principal Diagnosis: seizure disorder OTHER ACUTE DIAGNOSES: altered mental status infection left elbow- methicillin sensitive Staph aureus hypokalemia . Secondary Diagnoses/Problems: coronary artery disease reduced LVEF, history of cerebrovascular disease dyslipidemia dementia cervical fracture (old type 2 odontoid fracture) history of prostate Ca . Procedures: CT head CT cervical spine MRI cervical spine cardiac monitoring echo IV meds EEG PT OT . Consultations: Neurology Ortho Spine . Medication Reconciliation New Medications: Metoprolol Tartrate (Lopressor) (Lopressor) 25 Mg Tab 12.5 MG PO BID for 999 Days, #999 TAB hold HR < 60 or sys BP < 100 Potassium Chloride (Potassium Chloride Cr) 10 Meq Tab 10 MEQ PO BID for 999 Days, TAB Lamotrigine (Lamotrigine) 100 Mg Tab 300 MG PO BID for 30 Days, #180 TAB Levetiracetam (Keppra) 500 Mg Tab 1000 MG PO BID for 30 Days, #120 TAB Nutritional Supplements (Boost) 1 Liq Liq 1 CAN PO TIDM for 30 Days Continued Medications: Acetaminophen (Tylenol) 500 Mg Tab 500 MG PO Q4 PRN for Pain, TAB Aspirin (Aspirin Ec) 81 Mg Tab 81 MG PO QAM Atorvastatin (Lipitor) 10 Mg Tab 10 MG PO HS, TAB Bisacodyl (Bisacodyl) 10 Mg Sup 10 MG RI DAILY PRN for Constipation Docusate Sodium (Docusate Sodium) 100 Mg Cap 100 MG PO BID PRN for Constipation Levothyroxine Sodium (Synthroid) 75 Mcg Tab 75 MCG PO QAM, TAB Magnesium Hydroxide (Milk Of Magnesia) 30 Ml Susp 30 ML PO DAILY PRN for Constipation, ML Multivitamin (Multivitamin) Tab 1 TAB PO QAM, TAB Polyethylene Glycol 3350 (Miralax) 1 Pow Pow 17 GM PO QDL PRN for Constipation, #255 GM Quetiapine Fumarate (Seroquel) 25 Mg Tab 25 MG PO HS, TAB Sertraline (Zoloft) 25 Mg Tab 25 MG PO QAM, TAB Sodium Phosphate/Biphosphate (Fleet Enema) Ana Rosa 1 EA RI DAILY PRN for Constipation, BTL Discontinued Medications: Lamotrigine (Lamictal) 100 Mg Tab 200 MG PO BID, TAB Lamotrigine (Lamictal) 100 Mg Tab 250 MG PO HS, TAB TOTAL DOSE 250MG-TAKE WITH 2-25MG TABS. Sennosides-Docusate Sodium (Senokot S) 1 Tab Tab 1 TAB PO QDL, TAB Admission Information HPI (per Admitting provider): History obtained from patient, son, rehab hospital staff, and records. Limited history from patient secondary to dementia hearing impairment. Medical history significant for dementia, chronic systolic heart failure secondary to ischemic cardiomyopathy, EF of 30% from a 2D echo from 2011, CAD status post CABG, seizure disorder, prostate cancer, sleep apnea on CPAP, stroke as per records, chronic odontoid fracture as per records, past tobacco/ETOH abuse as per records, chronic anemia (baseline hemoglobin 10- 11). prostate cancer as per records. Recent ER visit last year for a seizure episode, jerking upper body while at [facility]. Patient discharged back to [facility]. The last 2 weeks, the patient has had recurrent falls at home as per son. Unwitnessed events. Patient would be noted to have bruising on the extremities. Patient unable to give description of events. Usual incontinence as per son. As per records, two nights ago, noted to have vomiting and altered mental status. Neighbor heard patient called for help yesterday morning. Son found patient sitting in an abnormal position like had fallen, usual incontinence. Patient unable to give history of events. The patient evaluated at [facility] Emergency Room. Unremarkable findings except for skin tear on the right forearm. Patient discharged to [facility]. At [facility] rehabilitation yesterday, the patient noted to have fallen off the bed, noted to be disoriented as per rehab nurse. Usual urinary incontinence. Patient brought to Emergency Room. Patient noted to be glassy-eyed as per son as if he just had seizures. As per the patient's son, Lamictal dose ordered at rehab hospital less than prescribed. As per son, had recent followup with [facility] neurologist about 2 weeks ago - everything was well. Told to continue same regimen. . Physical Exam (per Admitting): VITAL SIGNS: Blood pressure was noted to be 178/80 later 120/70, pulse rate 87, RR 22, T 37 sats 94 on room air. GENERAL: Noted to be uncomfortable, demented. SKIN: Normal color, warm. HEENT: Pale palpebral conjunctivae. No ptosis. Dry mucosa. NECK: Cervical collar noted. CHEST: Decreased effort. No tenderness. HEART: RRR, Systolic murmur. ABDOMEN: Soft, nontender. EXTREMITIES: No LE edema. No gross deformities for bruising on extremities. NEUROLOGIC: Demented. Gait and stance not assessed, no facial asymmetry, hard of hearing, speech somewhat unintelligible. . Hospital Course SEIZURE DISORDER Seizure at [facility] day of admission. Seen in consultation by Neurology. No acute findings on CT. Anticonvulsants adjusted. Discharge on on Lamictal 300 mg BID and Keppra 1000 mg BID. ALTERED MENTAL STATUS No acute findings on CT. Delirium / encephalopathy, possibly secondary to infectin. Improved. CEREBROVASCULAR DISEASE Discharge on aspirin, statin. CORONARY ARTERY DISEASE No anginal symptoms. Metoprolol initially held due to episodes of bradycardia. Changed metoprolol tartrate from 25 mg daily to 12.5 mg BID with hold parameters. Continue aspirin, statin. HISTORY REDUCED LVEF Echo 04/16/18 showed LVEF 60-65%. BP's low at times. Lisinopril held, restarted at reduced dose of 2.5 mg daily. DYSLIPIDEMIA Continue atorvastatin. HYPOTHYROIDISM Continue levothyroxine. HYPOKALEMIA KCl 10 mEq BID. Follow. LEFT ELBOW INFECTION Culture grew MSSA. Treated with vancomycin and doxycycline; completed course of therapy. CERVICAL FRACTURE Imaging demonstrated type 2 odontoid fracture, present since 2011. Seen in consultation by Ortho Spine. No need for further evaluation or management. DEMENTIA Monitor for arrhythmias. VTE PROPHYLAXIS Received SQ enoxaparin. RESUSCITATION STATUS DNR DISPOSITION Arrangements being made for transfer to [facility] for skilled care. Follow-up with Neurology in 2-3 weeks recommended. . Total time spent on discharge = 40 min. This includes examination of the patient, discharge planning, medication reconciliation, and communication with other providers. . Discharge Instructions [address] [address] Discharge Transfer Non-Acute Patient Name: Levi De La Garza Unit Number: [id number] Date of : 1935 Patient Status: Admitted Inpatient Attending Doctor: John Higgins M.D. DI: Transfer Non Acute v4 Discharge Instructions Date of Service Apr 25, 2018. Admission Reason for Admission: AMS Discharge Discharge Diagnosis / Problem: DEMENITA /DELIRIUM /SEIZURE DISORDER Discharge Goals Goal(s): Decrease discomfort, Improve function, Increase independence, Improve disease control, Therapeutic intervention Activity Recommendations Activity Level: Assistance Required . Additional Information Patient informed of condition: Yes Advance Directives: Yes DNR: Yes Level of Care: Skilled Communicable Disease: No Prognosis: Stable [place] Catheter: No Instructions / Follow-Up Instructions / Follow-Up FOLLOW UP WITH PHYSICIANS AT [facility] Current Hospital Diet Patient's current hospital diet: , AHA Diet (Heart Healthy) Discharge Diet Recommended Diet: AHA Diet (Heart Healthy) Diet Texture: Mechanical Soft (ground) Pending Studies Studies pending at discharge: no Laboratory Results Hemoglobin A1c Test 04/16/18 00:35 Range/Units Estimated Average Glucose 114 mg/dl Hemoglobin A1c 5.6 4.5-5.6 % Medical Emergencies . Who to Call and When: Medical Emergencies: If at any time you feel your situation is an emergency, please call 911 immediately. . Non-Emergent Contact Non-Emergency issues call your: Primary Care Provider . . "Provider Documentation" section prepared by Tia Dillon. . Core Measure Problem Core Measures: None PRECAUTIONS Fall precautions. Aspiration precautions. Seizure precautions. Thank you for receiving this patient in transfer. Please call if you have any questions. John Higgins . .
== END 2018-04-26 15:35 | DRG 100 ==
LOC: EDBD 00:10 → C.EDB 00:12 → C.2T 04:08 → ENRESERV 04:21 → OBSVTOIN 17:04 → ENRESERV 04-20 17:59 → CANRESERV 04-20 17:59 → ENRESERV 04-20 18:37 → C.MSN 04-20 19:29 → ENRESERV 04-23 09:29 → C.2T 04-23 10:01 → ENRESERV 04-24 16:12 → C.MS2W 04-24 18:39
PROVIDERS: ADMIT Internal Medicine; ATTEND Hospitalist
DX: G40.909 Epilepsy, unspecified, not intractable, without status epilepticus (principal); G93.41 Metabolic encephalopathy; J96.01 Acute respiratory failure with hypoxia; I50.22 Chronic systolic (congestive) heart failure; L08.9 Local infection of the skin and subcutaneous tissue, unspecified; B95.61 Methicillin susceptible Staphylococcus aureus infection as the cause of diseases classified elsewhere; S51.002A Unspecified open wound of left elbow, initial encounter; S00.93XA Contusion of unspecified part of head, initial encounter; R29.6 Repeated falls; S12.100D Unspecified displaced fracture of second cervical vertebra, subsequent encounter for fracture with routine healing; E87.6 Hypokalemia; R13.10 Dysphagia, unspecified; I25.10 Atherosclerotic heart disease of native coronary artery without angina pectoris; E78.5 Hyperlipidemia, unspecified; R73.9 Hyperglycemia, unspecified; F03.90 Unspecified dementia, unspecified severity, without behavioral disturbance, psychotic disturbance, mood disturbance, and anxiety; I25.5 Ischemic cardiomyopathy; Z95.1 Presence of aortocoronary bypass graft; G47.30 Sleep apnea, unspecified; E03.9 Hypothyroidism, unspecified; F10.11 Alcohol abuse, in remission; Z51.81 Encounter for therapeutic drug level monitoring; Z79.899 Other long term (current) drug therapy; Z79.82 Long term (current) use of aspirin; Z66 Do not resuscitate; Z86.73 Personal history of transient ischemic attack (TIA), and cerebral infarction without residual deficits; Z85.46 Personal history of malignant neoplasm of prostate; Z87.891 Personal history of nicotine dependence; Z88.1 Allergy status to other antibiotic agents; Z80.1 Family history of malignant neoplasm of trachea, bronchus and lung; X58.XXXD Exposure to other specified factors, subsequent encounter; W06.XXXA Fall from bed, initial encounter; Y92.230 Patient room in hospital as the place of occurrence of the external cause; Y99.8 Other external cause status